=== PATIENT | female | born 1990 | race Caucasian/White ===

== ENCOUNTER 2020-10-24 08:24 | Outpatient (REF) | payer OTHER, SELFPAY ==
[2020-10-25 08:22] LABS: BV Int Neg Control Negative (Negative); BV Int Pos Control Positive (Positive)
[2020-10-25 14:56] LABS: C. trachomatis RNA TMA NOT DETECTED (NOT DETECTED); N. gonorrhoeae RNA TMA NOT DETECTED (NOT DETECTED)
[2020-10-29 13:31] LABS: HPV mRNA E6/E7 rflx Not Detected (Not Detected)
== END 2020-10-24 08:25 | disposition home or self-care (01) ==
LOC: HO.LAB 08:24
PROVIDERS: Visit Provider Obstetrics & Gynecology
DX: Z01.419 Encounter for gynecological examination (general) (routine) without abnormal findings (principal); Z11.51 Encounter for screening for human papillomavirus (HPV)
CPT/HCPCS: 36415; 87480; 87491; 87510; 87591; 87624; 87660; 88142

== ENCOUNTER 2021-02-28 09:52 | Outpatient (REF) | payer OTHER, SELFPAY ==
[2021-02-28 15:14] LABS: CT PCR NOT DETECTED (Not Detect.); NG PCR NOT DETECTED (Not Detect.)
[2021-03-01 11:16] LABS: BV Int Neg Control Negative (Negative); BV Int Pos Control Positive (Positive)
== END 2021-02-28 09:53 | disposition home or self-care (01) ==
LOC: HO.LAB 09:52
PROVIDERS: Visit Provider Obstetrics & Gynecology
DX: Z11.3 Encounter for screening for infections with a predominantly sexual mode of transmission (principal); B37.3 Candidiasis of vulva and vagina; N89.8 Other specified noninflammatory disorders of vagina
CPT/HCPCS: 87480; 87491; 87510; 87591; 87660

== ENCOUNTER 2021-10-29 14:48 | Outpatient (REF) | payer OTHER, SELFPAY ==
[2021-11-01 14:24] LABS: HPV mRNA E6/E7 rflx Not Detected (Not Detected)
== END 2021-10-29 14:49 | disposition home or self-care (01) ==
LOC: HO.LAB 14:48
PROVIDERS: PCP Internal Medicine; Visit Provider Advanced Practice Midwife
DX: Z01.411 Encounter for gynecological examination (general) (routine) with abnormal findings (principal); Z11.51 Encounter for screening for human papillomavirus (HPV); L68.0 Hirsutism; N92.6 Irregular menstruation, unspecified; L70.9 Acne, unspecified; E66.01 Morbid (severe) obesity due to excess calories; Z68.41 Body mass index [BMI] 40.0-44.9, adult
CPT/HCPCS: 87624; 88142

== ENCOUNTER 2021-11-20 13:46 | Outpatient (REF) | payer OTHER, SELFPAY ==
--- NOTE | ~2021-11-20 | US_ITS ---
EXAMINATION: US PELVIS CLINICAL INFORMATION: Hirsutism. COMPARISON: None TECHNIQUE: Ultrasound of the pelvis is performed using both transabdominal and transvaginal transducers along with Doppler. Transvaginal imaging is performed due to inadequate visualization transabdominally. FINDINGS: The uterus is anteverted and measures 7.8 x 3.2 x 5.4 cm in dimension. No focal uterine lesion is seen. Endometrial thickness measures 0.9 cm. There is a 4 x 2 x 4 mm cyst with bright echogenic wall in the endometrium. Appearance is questionable for an early intrauterine . No focal uterine lesion is seen. There are nabothian cysts in the cervix. The right ovary measures 3.8 x 2.5 x 2.8 cm. There is a 1.6 x 1.3 x 1.8 cm complex cyst in the right ovary with internal echoes and thickened hypervascular wall. This may represent a corpus luteum. The left ovary is normal-appearing and measures 2.8 x 1.8 x 1.7 cm. There is no fluid in the pelvis. US/US pelvic and transvaginal IMPRESSION: 4 x 2 x 4 mm endometrial cyst with bright echogenic wall questionable for an intrauterine . 1.6 x 1.3 x 1.8 cm complex right ovarian cyst, probably representing a corpus luteum.
[2021-11-20 16:03] LABS: Thyroid Stimulating Hormone 1.33 uIU/mL (0.32-4.0)
[2021-11-21 12:55] LABS: DHEA Sulfate 83 mcg/dL (19-237); Prolactin 21.8 ng/mL
[2021-11-26 11:11] LABS: Testosterone, Free 2.6 pg/mL (0.1-6.4); Testosterone, Total 15 ng/dL (2-45)
== END 2021-11-20 13:47 | disposition home or self-care (01) ==
LOC: HO.US 13:46
PROVIDERS: PCP Internal Medicine; Visit Provider Advanced Practice Midwife
DX: L68.0 Hirsutism (principal); N92.6 Irregular menstruation, unspecified
CPT/HCPCS: 36415; 76830; 76856; 82627; 83498; 84146; 84402; 84403; 84443

== ENCOUNTER → 2021-12-04 13:10 | Outpatient (BNVA) | payer OTHER, SELFPAY | PROVIDERS: PCP Internal Medicine Nephrology; Visit Provider Advanced Practice Midwife | DX: Z71.2 Person consulting for explanation of examination or test findings (principal); Z32.02 Encounter for pregnancy test, result negative; N83.291 Other ovarian cyst, right side | CPT/HCPCS: 81025 ==

== ENCOUNTER 2022-01-06 09:17 | Outpatient (REF) | payer OTHER, SELFPAY ==
--- NOTE | ~2022-01-06 | US_ITS ---
EXAMINATION: US PELVIS CLINICAL INFORMATION: History of ovarian cyst, right side. COMPARISON: Ultrasound pelvis 11/20/2021. TECHNIQUE: Ultrasound of the pelvis is performed using both transabdominal and transvaginal transducers along with Doppler. Transvaginal imaging is performed due to inadequate visualization transabdominally. FINDINGS: UTERUS: The uterus is anteverted, anteflexed and measures 7.41 x 3.48 x 4.79 cm. The double wall endometrial thickness is 1.12 cm. The uterus is smooth in contour and has normal myometrial echogenicity. No visible fibroid. There are small anechoic nabothian cysts in the cervix. ADNEXA: Both ovaries are visualized. There is normal color flow to the adnexa. There is no ovarian torsion. There is no pelvic ascites or fluid collection. Right ovary measures 3.30 x 2.11 x 2.70 cm and volume 9.84 mL. It appears unremarkable. Previously right ovary measured 3.8 x 2.5 x 2.8 cm. Left ovary measures 3.65 x 2.58 x 2.70 cm and volume 13.3 mL. There is anechoic simple cyst measuring 1.5 x 1.2 x 1.5 cm. US/US pelvic and transvaginal IMPRESSION: Multiple nabothian cysts in the cervix. The uterus is unremarkable. Previously visualized endometrial cyst is not visualized at this time. Simple cyst left ovary. The complex right ovarian cyst seen previously is not visualized at this time.
== END 2022-01-06 09:18 | disposition home or self-care (01) ==
LOC: HO.US 09:17
PROVIDERS: Visit Provider Advanced Practice Midwife
DX: N83.291 Other ovarian cyst, right side (principal)
CPT/HCPCS: 76830; 76856

== ENCOUNTER → 2022-01-20 11:34 | Outpatient (BNVA) | payer OTHER, SELFPAY | PROVIDERS: PCP Internal Medicine Nephrology; Visit Provider Advanced Practice Midwife | DX: Z13.89 Encounter for screening for other disorder (principal) ==

== ENCOUNTER 2022-04-27 08:32 | Outpatient (REF) | payer SELFPAY ==
[2022-04-27 09:39] LABS: Estimated Average Glucose 131 mg/dL; Hemoglobin A1c % 6.2 %
[2022-04-27 09:44] LABS: Cholesterol 161 mg/dL; HDL Cholesterol 54 mg/dL; LDL Cholesterol Calculated 82 mg/dl; Triglycerides 125 mg/dL
== END 2022-04-27 08:33 | disposition home or self-care (01) ==
LOC: HO.LAB 08:32
PROVIDERS: PCP Internal Medicine; Visit Provider Internal Medicine
DX: E11.65 Type 2 diabetes mellitus with hyperglycemia (principal); E78.5 Hyperlipidemia, unspecified
CPT/HCPCS: 36415; 80061; 83036

== ENCOUNTER → 2022-09-14 08:42 | Outpatient (BNVA) | payer OTHER, SELFPAY | PROVIDERS: PCP Internal Medicine; Visit Provider Obstetrics & Gynecology | DX: Z13.89 Encounter for screening for other disorder (principal) ==

== ENCOUNTER 2022-09-15 12:20 | Outpatient (REF) | payer OTHER, SELFPAY ==
[2022-09-15 14:44] LABS: TSH reflex Free T4 1.44 uIU/mL (0.32-4.0)
[2022-09-16 06:44] LABS: Syphilis Screen Nonreactive (Nonreactive)
[2022-09-16 08:11] LABS: HBsAGNum1 0.41 S/CO (0.00-0.99); HIV AB/AG Nonreactive (Nonreactive); HIV Num 1 0.06 S/CO (0.00-0.99); Hepatitis B Surface Antigen Negative (Negative); ~HepC Num1 0.09 S/CO (0.00-0.79); ~Hepatitis C Antibody Nonreactive (Nonreactive)
[2022-09-16 08:57] LABS: Follicle Stimulating Hormone 5.5 mIU/mL; Prolactin 5.2 ng/mL
[2022-09-16 14:28] LABS: Rubella IgG Antibody 8.23 Index
[2022-09-17 18:43] LABS: Anti-Mullerian Hormone-Female 1.19 ng/mL (0.36-10.07)
[2022-09-24 04:23] LABS: Estradiol Free 0.43 pg/mL; Estradiol, Ultrasensitive 18 pg/mL
[2022-09-25 09:29] LABS: CF Ethnicity NG; Cystic Fibrosis NEGATIVE (NEGATIVE)
== END 2022-09-15 12:21 | disposition home or self-care (01) ==
LOC: HO.LAB 12:20
PROVIDERS: PCP Internal Medicine; Visit Provider Advanced Practice Midwife
DX: E66.9 Obesity, unspecified (principal); Z31.41 Encounter for fertility testing; Z13.0 Encounter for screening for diseases of the blood and blood-forming organs and certain disorders involving the immune mechanism; Z11.9 Encounter for screening for infectious and parasitic diseases, unspecified; Z31.430 Encounter of female for testing for genetic disease carrier status for procreative management
CPT/HCPCS: 36415; 81220; 82397; 82670; 82681; 83001; 83002; 84146; 84443; 86762; 86780; 86803; 86850; 86900; 86901; 87340; 87389

== ENCOUNTER 2022-09-21 10:54 | Outpatient (REF) | payer OTHER, SELFPAY ==
--- NOTE | ~2022-09-21 | FL_ITS ---
EXAMINATION: INJECTION FOR HYSTEROSALPINGOGRAM FL hysterosalpingography CLINICAL INFORMATION: Female infertility COMPARISON: None. TECHNIQUE: Realtime fluoroscopy was provided to Dr. Best to perform a hysterosalpingogram. FLUOROSCOPY TIME: 0.8 minutes DOSE AREA PRODUCT: 9.920 Gy-cm2 FINDINGS: Normal endometrial contour. There was prompt contrast opacification of the bilateral Fallopian tubes with intraperitoneal spill confirming tubal patency. FL/FL hysterosalpingography IMPRESSION: Normal exam. Patent Fallopian tubes bilaterally.
== END 2022-09-21 10:55 | disposition home or self-care (01) ==
LOC: HO.XRAY 10:54
PROVIDERS: PCP Internal Medicine; Visit Provider Obstetrics & Gynecology
DX: N97.9 Female infertility, unspecified (principal)
CPT/HCPCS: 58340; 74740

== ENCOUNTER 2022-11-11 14:03 | Outpatient (REF) | payer OTHER, SELFPAY ==
[2022-11-12 09:37] LABS: BV Int Neg Control Negative (Negative); BV Int Pos Control Positive (Positive)
== END 2022-11-11 14:04 | disposition home or self-care (01) ==
LOC: HO.LAB 14:03
PROVIDERS: Visit Provider Advanced Practice Midwife
DX: N89.8 Other specified noninflammatory disorders of vagina (principal)
CPT/HCPCS: 87480; 87510; 87660

== ENCOUNTER 2023-02-12 08:15 | Outpatient (REF) | payer OTHER, SELFPAY ==
[2023-02-12 08:42] LABS: MANUAL DIFF FLAG NO
[2023-02-12 09:24] LABS: Basophils Percent Auto 0.3 % (0-2); Eosinophils Absolute Auto 0.3 X10*3/uL (0.0-0.4); Eosinophils Percent Auto 3.4 % (0-4); Hematocrit 37.2 % (37.0-47.0); Hemoglobin 12.8 g/dl (12.0-16.0); Imm Gran Abs Auto 0.03 X10*3/uL (0.00-0.03); Imm Gran Pct Auto 0.3 % (0.0-0.4); Lymphocytes Absolute Auto 2.4 X10*3/uL (1.2-4.9); Lymphocytes Percent Auto 27.1 % (20-40); Mean Corpuscular HGB Conc 34.4 g/dl (31.0-35.0); Mean Corpuscular Hemoglobin 28.9 pg (27.0-33.0); Mean Platelet Volume 10.7 fL (9.4-12.3); Monocytes Absolute Auto 0.6 X10*3/uL (0.1-1.2); Monocytes Percent Auto 7.2 % (2-11); Neutrophils Absolute Auto 5.4 x10*3/uL (2.0-8.3); Neutrophils Percent Auto 61.7 % (45-73); Platelet Count 269 X10*3/uL (160-400); Red Blood Count 4.43 X10*6/uL (4.20-5.50); Red Cell Distribution Width 15.2 % (11.0-16.0); White Blood Count 8.8 X10*3/uL (4.8-10.8)
[2023-02-12 09:32] LABS: Estimated Average Glucose 134 mg/dL; Hemoglobin A1c % 6.3 %
[2023-02-12 10:03] LABS: Alanine Aminotransferase 70 U/L (0-31); Albumin Level 4.2 g/dL (3.5-5.0); Alkaline Phosphatase 80 U/L (39-117); Anion Gap 13 (12-20); Aspartate Amino Transferase 38 U/L (5-31); Bilirubin Total 0.7 mg/dL (0.0-1.0); Blood Urea Nitrogen 14 mg/dL (9-16); Calcium 9.7 mg/dL (8.4-10.2); Carbon Dioxide 25 mmol/L (22-29); Chloride 105 mmol/L (96-108); Cholesterol 159 mg/dL; Estimated Glomerular Filt Rate > 60; Glucose Random 145 mg/dL (60-115); HDL Cholesterol 52 mg/dL; LDL Cholesterol Calculated 85 mg/dl; Potassium 4.2 mmol/L (3.3-5.1); Sodium 139 mmol/L (135-145); Total Protein 7.2 g/dL (6.5-8.0); Triglycerides 113 mg/dL
[2023-02-12 10:07] LABS: Creatinine Urine 114.84 mg/dL; Microalbum/Creatinine Ratio Ur 107.9 ug/mg cr
== END 2023-02-12 08:16 | disposition home or self-care (01) ==
LOC: HO.LAB 08:15
PROVIDERS: PCP Internal Medicine; Visit Provider Internal Medicine
DX: Z00.00 Encounter for general adult medical examination without abnormal findings (principal); E11.65 Type 2 diabetes mellitus with hyperglycemia; E55.9 Vitamin D deficiency, unspecified; E78.5 Hyperlipidemia, unspecified; Z13.29 Encounter for screening for other suspected endocrine disorder
CPT/HCPCS: 36415; 80053; 80061; 82043; 83036; 85025

== ENCOUNTER 2023-03-22 08:03 | Outpatient (REF) | payer OTHER, SELFPAY ==
[2023-03-22 10:01] LABS: Free T4 (Free Thyroxine) 1.04 ng/dL (0.71-1.85); Thyroid Stimulating Hormone 2.91 uIU/mL (0.32-4.0)
[2023-03-22 10:09] LABS: Vitamin B12 436 pg/mL (200-900)
== END 2023-03-22 08:04 | disposition home or self-care (01) ==
LOC: HO.LAB 08:03
PROVIDERS: PCP Internal Medicine; Visit Provider Registered Nurse Emergency
DX: R41.3 Other amnesia (principal)
CPT/HCPCS: 36415; 82607; 84439; 84443

== ENCOUNTER 2023-04-01 08:00 | Outpatient (REF) | payer OTHER, SELFPAY ==
--- NOTE | ~2023-04-01 | US_ITS ---
EXAMINATION: US ABDOMEN COMPLETE CLINICAL INFORMATION: Elevated liver enzymes. COMPARISON: None available. TECHNIQUE: Real-time imaging of the abdominal viscera. Limited visualization due to bowel gas and body habitus. FINDINGS: PANCREAS: Limited visualization of pancreatic tail and head. Imaged portion of pancreatic body is unremarkable. ABDOMINAL AORTA: Limited visualization. Imaged portions of abdominal aorta are nonaneurysmal. INFERIOR VENA CAVA: Visualized portions are normal. LIVER: Diffuse increase in echogenicity of the liver is characteristic of primary hepatocellular disease, possibly due to hepatic steatosis and severely limits visualization. GALLBLADDER: Multiple tiny echogenic foci along the gallbladder wall may represent multiple tiny polyps, irregular mural calcifications and/or adherent gallstones. COMMON BILE DUCT: Normal in caliber measuring 0.7 cm in diameter. RIGHT KIDNEY: No hydronephrosis. No renal calculi. Renal cortical thickness is normal. Limited visualization. The kidney measures 12.1 cm in maximum dimension. LEFT KIDNEY: No hydronephrosis. No renal calculi. Renal cortical thickness is normal. Limited visualization. The kidney measures 12.6 cm in maximum dimension. SPLEEN: Normal. The spleen measures 11.2 cm in maximum dimension. FREE FLUID: None. US/US abdomen complete IMPRESSION: 1. Multiple tiny echogenic foci along the gallbladder wall may represent multiple tiny polyps, irregular mural calcifications and/or adherent gallstones. Some of these appear to demonstrate internal vascularity. GI consultation and MRI recommended for further evaluation. 2. Diffuse increase in echogenicity of the liver is characteristic of primary hepatocellular disease, possibly due to hepatic steatosis and severely limits visualization.
== END 2023-04-01 08:01 | disposition home or self-care (01) ==
LOC: HO.US 08:00
PROVIDERS: PCP Internal Medicine; Visit Provider Physician Assistant Medical
DX: R74.8 Abnormal levels of other serum enzymes (principal)
CPT/HCPCS: 76700

== ENCOUNTER 2023-05-07 08:01 | Outpatient (REF) | payer OTHER, SELFPAY ==
--- NOTE | ~2023-05-07 | MR_ITS ---
EXAMINATION: MR ABDOMEN WITHOUT AND WITH CONTRAST CLINICAL INFORMATION: Gallstones. COMPARISON: Abdominal ultrasound 04/01/2023 TECHNIQUE: MR abdomen was performed without and with use of 10 mL intravenous Gadavist gadolinium contrast. Postcontrast images are performed in multiphase dynamic sequences. Imaging was performed in 3 planes. MRCP was also performed. FINDINGS: LUNG BASES: No pleural or pericardial effusion. LIVER, GALLBLADDER, AND BILIARY TREE: The liver is enlarged and measures 20.1 cm in sagittal dimension. Marked hepatic steatosis with sparing along the gallbladder fossa. No focal hepatic lesion or biliary ductal dilatation is present. There are subtle tiny T2 hyperintense foci along the gallbladder wall best seen on the T2-weighted images. This corresponds to the recent sonographic findings. PANCREAS: No ductal dilatation. SPLEEN: Not enlarged. ADRENAL GLANDS: No adrenal mass. KIDNEYS AND URETERS: The kidneys are symmetric in size and enhancement. No hydronephrosis or perinephric stranding. GASTROINTESTINAL TRACT: Imaged loops of small and large bowel are nonobstructed. No abdominal ascites. ABDOMINAL WALL: No significant hernia is appreciated. LYMPH NODES: No bulky abdominal lymphadenopathy. VASCULAR: Normal caliber abdominal aorta. MR/MR abdomen wo/w con IMPRESSION: Marked hepatic steatosis. Findings likely representing gallbladder cholesterol polyps/cholesterolosis.
[2023-05-07] MEDS: gadobutroL 10 ML VIAL IVPUSH (08:56)
== END 2023-05-07 08:02 | disposition home or self-care (01) ==
LOC: HO.MRI 08:01
PROVIDERS: PCP Internal Medicine; Visit Provider Physician Assistant Medical
DX: K80.20 Calculus of gallbladder without cholecystitis without obstruction (principal)
CPT/HCPCS: 74183; A9585

== ENCOUNTER 2024-11-29 07:58 | Outpatient (REF) | payer OTHER, SELFPAY ==
[2024-11-29 20:18] LABS: CT PCR NOT DETECTED (Not Detect.); NG PCR NOT DETECTED (Not Detect.)
== END 2024-11-29 07:59 | disposition home or self-care (01) ==
LOC: HO.LNP 07:58
PROVIDERS: PCP Internal Medicine; Visit Provider Advanced Practice Midwife
DX: Z30.430 Encounter for insertion of intrauterine contraceptive device (principal); Z20.2 Contact with and (suspected) exposure to infections with a predominantly sexual mode of transmission
CPT/HCPCS: 58300; 81025; 87491; 87591; J7298

== ENCOUNTER 2024-11-29 07:58 | Outpatient (AMB) | payer OTHER, SELFPAY ==
--- NOTE | 2024-11-29 07:59 | MHC.OFFVIS ---
Vital Signs 11/29/24 08:01 11/29/24 08:28 Height 5 ft 4 in Weight 214 lb BMI 36.7 BP 120/84 124/82 Intake Visit Reasons: Annual/BC Allergies No Known Allergies Allergy (Verified 11/29/24 08:02) Is last menstrual period known: Yes Last menstrual period: 11/28/24 HPI Comments Details: Here today for a control consult, currently has her menstrual cycle. She reports cycles are regular time 5-7 days, heavier for the 2 days out of the cycles she uses Midol to help with her menstrual cramping. She is requiring a reliable control, scheduled for gastric sleeve procedure next . [facility], [facility] Medical History (Updated 11/29/24 @ 09:10 by Suzanne Coronado CNM) IUD (intrauterine device) in place Diabetes mellitus Family History (Updated 11/29/24 @ 08:04 by DAY Zaidi) Mother Diabetes Father Diabetes Hypertension Kidney failure Maternal Aunt Colon cancer Social History Household Members: Significant Other Alcohol intake: current Alcohol intake frequency: holidays/special occasions only Patient Tobacco Use Status: Never used Tobacco Sexual orientation: Straight/Heterosexual Gender identity: Female Female Reproductive History Menstrual Age of Menarche: 8 Date of last menstrual period: 11/28/24 Total pregnancies: 0 Review of Systems Const All systems reviewed & are unremarkable except as noted in HPI and below Physical Exam Vital Signs: Last Vital Signs BP 124/82 11/29/24 08:28 BMI result Body Mass Index 36.7 Const General: cooperative, healthy appearing and no acute distress Orientation/consciousness: patient oriented x3 GI Inspection: Yes normal to inspection Palpation (GI): Soft to palpation and Other GI palpation findings present (Nontender) Rectal Exam - Female: visual inspection normal General: Yes bladder normal to palpation External Female Exam: normal appearance of the urethra Speculum Exam - Vagina: normal appearance of the vagina, normal palpation, normal vaginal discharge and vaginal bleeding Speculum Exam - Cervix: normal appearance of the cervix and normal palpation Bimanual exam- vagina & uterus: normal bimanual exam, normal palpation, uterine size normal, bladder normal to palpation, normal palpation, uterine shape normal and non-tender Bimanual Exam- Adnexa, other: normal adnexae OB/external & speculum: vaginal bleeding Neuro General: patient oriented x3 Office Procedures IUD Insert/Removal Details 10862-BII Insertion Procedure code (CPT) selection complete Contraception Insert/Removal Details Details: The patient is here today for a Mirena IUD insertion. She was counseled on the side effects including: menstrual cycle changes, pain, infection, bleeding, or expulsion. Risks of injury to the vagina, cervix, uterus, tubes, ovaries, bowel, bladder, and any adjacent tissue, resulting in nerve damage, scarring, and pain. Risks complications for the procedure that may require other test including ultrasounds, Xray, CT or MRI scan, surgery, anesthesia, blood transfusion. A urine test was completed and was negative. She was consented for the IUD insertion and has signed the consent form. All questions were answered. IUD Insertion: The patient was placed in the dorsal lithotomy position and a sterile speculum was inserted. The procedure was completed under aseptic technique. The cervix was cleansed with a Betadine solution x 3 swabs. A single toothed tenaculum was applied to the cervix for stabilization, and the uterus was sounded to 8cm. The device was inserted and released with a gentle motion. Bleeding from the tenaculum sites and the procedure were minimal. The strings were trimmed to 3cm. All of the equipment was removed and the bimanual was normal, no tip was palpable at the cervical os. The patient tolerated the procedure well and left the office in good condition. Post IUD Insertion Care: There may be some post insertion bleeding for several days that is usually light and can turn to a light brown or pink in color. Mild cramping may occur. Nothing in the vagina including: tampons, douching or intimacy for several days. You may take an over the counter mild analgesia like Tylenol, per the manufacturers recommendations on dosing and frequency. Follow the directions completely. Call the office if any: fever (over 100.4), flu like symptoms, abdominal pain, worsening cramping not resolved with over the counter medications, foul smelling vaginal odor, signs of infected appearing discharge, or heavy bleeding. Use a condom for a back up method if indicated for 7 days. Always use a condom for STI prevention; IUD's are not protective against STD's. Return to the office in 4-6 weeks for IUD recheck. This note is constructed using voice recognition software. While every effort has been made to ensure accuracy, pilot highway patrol errors may have been included. 86517 - Insertion Office Meds Mirena 21 mcg/24 hr (up to 8 years) 52 mg intrauterine device Performing Provider: Suzanne Coronado CNM Performing Location: [facility] Administered by: DAY Zaidi on 11/29/24 09:03 Dose Route Admin Location Dispensed Lot Number Expiration Date [facility] [employer] M[employer] 1 device intrauterine 1 device [id number] 02/03/27 [id number] [employer] Results AMB Test Urine AMB Test Urine Negative Last Edit by DAY Zaidi on 11/29/24 08:44 Assessment & Plan Assessment & Plan (1) Encounter for IUD insertion: Code(s): Z30.430 - Encounter for insertion of intrauterine contraceptive device Plan See procedure notes. Reviewed the use of OTC meds, avoid the use of ibuprofen. Return to the office in 4-6 weeks. The patient expressed understanding and agreement with the plan of care. All of her questions and concerns were addressed to the best of my ability. This note is constructed using voice recognition software. While every effort has been made to ensure accuracy, pilot highway patrol errors may have been included. Orders: Orders CT NG by PCR Today Z20.2 - Contact with and (suspected) exposure to infections with a predominantly sexual mode of transmission AMB IUD Insertion/Removal - Practice Supplied Today Z30.430 - Encounter for insertion of intrauterine contraceptive device AMB HCG Urine Test Today Z32.02 - Encounter for test, result negative Coding Level of Care Code Procedure Only Diagnoses Encounter for IUD insertion Z30.430 CPT Codes Details - CPT: 82876-TLK Insertion ([id number]) Details - Contraception: 43594 - Insertion ([id number])
[2024-11-29 08:01] VITALS: BP 120/84; BMI 36.7
--- OUTSIDE RECORDS SUMMARY | 2024-11-29 08:05 | XMS_ITS ---
Author Organization [facility] Address [address] [place] [address] Care Team Providers Care Supplemental Manager Name Role Phone NEHEMIAS BARLOW Unavailable [phone] REASON FOR VISIT Refills MEDICATIONS Medication SIG (Take, Route, Fr equency, Duration) Notes Start Date End Date Status Mounjaro 10 MG/0.5ML 10 mg Subcutaneous weekly for 28 days Active Encounters Encounter Location Date Provider Diagnosis [facility] [address] [place] [id number] 09/27/2024 NEHEMIAS BARLOW PLAN OF TREATMENT Medication Medication Name Sig Start Date Stop Date Notes Mounjaro 10 MG/0.5ML 10 mg Subcutaneous weekly for 28 days Next Appt Details Provider Name:NEHEMIAS BARLOW, Ramiro 01/09/2025 08:00:00 AM, [address], [place], [address], Progress Notes * GREERBIBCLARKDOB:[birth year] (34 yo F)Acc No.[id number]:09/27/2024 Patient:??CODY BUTTERFIELD :1990?Age:34 Y?Sex:Fe male Address:[address] [place] [address], [place] [address] * Refills?? Refill Mounjaro Solution Pen-injector, 10 MG/0.5ML, Subcutaneous, 4, 10 mg, weekly, 28 days, Refills=0 * true * Date:??
--- OUTSIDE RECORDS SUMMARY | 2024-11-29 08:05 | XMS_ITS ---
Author Organization [employer] [facility] Address [address] [place] [address] Care Team Providers Care Shift Lab Technician Name Role Phone NEHEMIAS BARLOW Unavailable [phone] REASON FOR VISIT New Refill Request MEDICATIONS Medication SIG (Take, Route, Fr equency, Duration) Notes Start Date End Date Status Mounjaro 10 MG/0.5ML 10 mg Subcutaneous weekly for 28 days Active Encounters Encounter Location Date Provider Diagnosis [facility] [address] [place] [phone] 10/30/2024 NEHEMIAS BARLOW PLAN OF TREATMENT Medication Medication Name Sig Start Date Stop Date Notes Mounjaro 10 MG/0.5ML 10 mg Subcutaneous weekly for 28 days Next Appt Details Provider Name:Ramiro MARROQUIN 01/09/2025 08:00:00 AM, [address], [place], [phone], Progress Notes * GREER BIBCLARKDOB:[birth year] (34 yo F)Acc No.[id number]:10/30/2024 Patient:??CODY BUTTERFIELD :1990?Age:34 Y?Sex:Fe male Address:[address] [place] [address] * Refills?? Refill Mounjaro Solution Pen-injector, 10 MG/0.5ML, Subcutaneous, 4, 10 mg, weekly, 28 days, Refills=0 * true * Date:??
--- OUTSIDE RECORDS SUMMARY | 2024-11-29 08:05 | XMS_ITS ---
Author Organization [employer] [facility] Address [address] [place] [address] Care Team Providers Care Inside Contractor Sales Name Role Phone CAIN, NEHEMIAS Unavailable [phone] REASON FOR VISIT covid swab Encounters Encounter Location Date Provider Diagnosis [address] [address] 09/12/2024 NEHEMIAS BARLOW PLAN OF TREATMENT Next Appt Details Provider Name:NEHEMIAS ABRLOW, 0 01/09/2025 08:00:00 AM, [address], [place], [phone], Progress Notes * CODY BUTTERFIELDDOB:[birth year] (34 yo F)Acc No.[id number]:09/12/2024 Patient:??GREERBIBCLARK :1990?Age:34 Y?Sex:Fe male Address:[address] [place] [address]., [place] [address] * true * Date:??
[2024-11-29 08:28] VITALS: BP 124/82
== END 2024-11-29 11:30 | disposition home or self-care (01) ==
LOC: HO.HWS 07:58
PROVIDERS: PCP Internal Medicine; Visit Provider Advanced Practice Midwife
DX: Z30.09 Encounter for other general counseling and advice on contraception (principal); Z30.430 Encounter for insertion of intrauterine contraceptive device; Z32.02 Encounter for pregnancy test, result negative
CPT/HCPCS: 58300; 99213

== ENCOUNTER 2024-12-28 07:45 | Outpatient (AMB) | payer OTHER, SELFPAY ==
--- NOTE | 2024-12-28 07:48 | MHC.OFFVIS ---
Intake Visit Reasons: vaginal discharge Electrolysis Engineer: Electrolysis Engineer Present (Jessica) Allergies No Known Allergies Allergy (Verified 12/28/24 07:49) HPI Comments Details: Patient is here today for a follow up, status post IUD insertion on 11/29/2024, she reports bleeding started with dark brown, reddish, volume increased with cramping this week. Gastric sleeve performed a week after the Mirena was inserted. Now off her diabetic meds, hemoglobin A1c is in normal range. Additionally she reports mood changes. [facility] Medical History (Updated 12/28/24 @ 08:03 by Suzanne Coronado CNM) IUD check up Irregular bleeding IUD (intrauterine device) in place Diabetes mellitus Family History (Updated 11/29/24 @ 08:04 by DAY Zaidi) Mother Diabetes Father Diabetes Hypertension Kidney failure Maternal Aunt Colon cancer Social History Household Members: Significant Other Alcohol intake: current Alcohol intake frequency: holidays/special occasions only Patient Tobacco Use Status: Never used Tobacco Sexual orientation: Straight/Heterosexual Gender identity: Female Female Reproductive History Menstrual Age of Menarche: 8 Review of Systems Const All systems reviewed & are unremarkable except as noted in HPI and below Physical Exam Const General: cooperative, healthy appearing and no acute distress Orientation/consciousness: patient oriented x3 GI Inspection: Yes normal to inspection Palpation (GI): Soft to palpation and Other GI palpation findings present (Nontender) Rectal Exam - Female: visual inspection normal General: Yes bladder normal to palpation External Female Exam: normal appearance of the urethra Speculum Exam - Vagina: normal appearance of the vagina, normal palpation, normal vaginal discharge and vaginal bleeding (Small amount at the os) Speculum Exam - Cervix: normal appearance of the cervix, normal palpation and Other cervical findings present (IUD strings at the os, no tip palpable) Bimanual exam- vagina & uterus: normal bimanual exam, normal palpation, uterine size normal, bladder normal to palpation, normal palpation, uterine shape normal and non-tender Bimanual Exam- Adnexa, other: normal adnexae OB/external & speculum: vaginal bleeding (Small amount at the os) Neuro General: patient oriented x3 Assessment & Plan Assessment & Plan (1) Irregular bleeding: Code(s): N92.6 - Irregular menstruation, unspecified Category: Medical Plan: Reviewed normal bleeding patterns for Mirena IUD use, anticipate decreased volume with time 1st 3 months, tends to have random bleeding, some experience amenorrhea with time. Physical adjustments impacting bleeding can be due to weight loss in surgery other stressors. Mood changes can be affected by hormonal IUD and other stressors as noted. Call if any heavy or prolonged bleeding occurs. Use of OTC medications such as Tylenol and heating pad for cramping. BV panel obtained await results for plan of care. The patient expressed understanding and agreement with the plan of care. All of her questions and concerns were addressed to the best of my ability. (2) IUD check up: Code(s): Z30.431 - Encounter for routine checking of intrauterine contraceptive device Category: Medical Plan: Plan pelvic ultrasound to check IUD positioning, if low lying we will need to be replaced. Follow up pending results. This note is constructed using voice recognition software. While every effort has been made to ensure accuracy, physical damage appraiser errors may have been included. Orders: Orders Bacterial Vaginosis Panel Today N92.6 - Irregular menstruation, unspecified US pelvic and transvaginal Today N92.6 - Irregular menstruation, unspecified, Z30.431 - Encounter for routine checking of intrauterine contraceptive device Coding Level of Care Code Est Pt Level 3 (02462) Diagnoses Irregular bleeding N92.6 IUD check up Z30.431
--- OUTSIDE RECORDS SUMMARY | 2024-12-28 07:48 | XMS_ITS | Patient Health Record ---
Author Organization [facility] Address [address] [place] [address] Care Team Providers Care Laboratory Analyst Name Role Phone NEHEMIAS BOURNE Unavailable [phone] MYA WALTON Unavailable [phone] DOUGLAS COLE Unavailable [phone] ALLERGIES Allergen (clinical drug ingredient) Drug/Non Drug Allergy documented on EMR Reaction Allergy Type Onset Date Status Feathers feathers (uncoded) Unknown Allergy A ctive grass (uncoded) Unknown Allergy Acti ve dulaglutide Trulicity rash Drug Allergy Activ e Dust Mites Unknown Allergy Active Pollen Pollen Unknown Allergy Active RESULTS Component Value Reference Range Notes Hemoglobin [id number] Reviewed date:02/19/2024 09:05:53 AM Interpretation: Performing Lab:[facility], [address] [place] [address], Phone - [phone], Director - Jassi Notes/Report: Hemoglobin A1c 7.5 4.8-5.6 % . Prediabetes: 5.7 - 6.4 Diabetes: >6.4 Glycemic control for adults with diabetes: <7.0 Urinalysis, Routine-[id number] Reviewed date:07/05/2024 08:01:37 AM Interpretation: Performing Lab:[facility], [address] [facility], Phone - [phone], Director - Jassi Notes/Report: Specific Dresser 1.007 1.005-1.030 pH 6.5 5.0-7.5 Urine-Color Yellow Yellow Appearance Clear Clear WBC Esterase Negative Negative Protein Negative Negative/Trace Glucose Negative Negative Ketones Negative Negative Occult Blood Negative Negative Bilirubin Negative Negative Urobilinogen,Semi-Qn 0.2 0.2-1.0 mg/dL Nitrite, Urine Negative Negative Microscopic Examination Micr oscopic not indicated and not performed. Urinalysis, Complete-[id number] Reviewed date:02/19/2024 09:06:01 AM Interpretation: Performing Lab:[facility] Acevedo[address], Phone - [phone], Director - MDJodry Notes/Report: Specific Dresser 1.011 1.005-1.030 pH 7.5 5.0-7.5 Urine-Color Yellow Yellow Appearance Cloudy Clear WBC Esterase Trace Negative Protein 1+ Negative/Trace Glucose Negative Negative Ketones Negative Negative Occult Blood Negative Negative Bilirubin Negative Negative Urobilinogen,Semi-Qn 0.2 0.2-1.0 mg/dL Nitrite, Urine Negative Negative Microscopic Examination See below: Micr oscopic was indicated and was performed. Microscopic Examination WBC 0-5 0 - 5 /hpf RBC None seen 0 - 2 /hpf Epithelial Cells (non renal) >10 0 - 10 /hpf Epithelial Cells (renal) Casts None seen None seen /lpf Cast Type Crystals Crystal Type Mucus Threads Bacteria Few None seen/Few Yeast Trichomonas Comment TSH-[id number] Reviewed date:02/19/2024 08:56:27 AM Interpretation: Performing Lab:[facility], [address] [place] [address], Phone - [phone], Director - Kayleey Notes/Report: TSH 1.470 0.450-4.500 uIU/mL TSH-[id number] Reviewed date:07/05/2024 08:01:37 AM Interpretation: Performing Lab:[facility], Phone - [phone], Director - Chiquidry Notes/Report: TSH 2.160 0.450-4.500 uIU/mL CBC With Differential/Platel et-[id number] Reviewed date:07/05/2024 08:01:37 AM Interpretation: Performing Lab:[facility], Phone - [phone], Director - Jodry Notes/Report: WBC 8.3 3.4-10.8 x10E3/uL RBC 4.26 3.77-5.28 x10E6/uL Hemoglobin 12.4 11.1-15.9 g/dL Hematocrit 37.8 34.0-46.6 % MCV 89 79-97 fL MCH 29.1 26.6-33.0 pg MCHC 32.8 31.5-35.7 g/dL RDW 13.9 11.7-15.4 % Platelets 307 150-450 x10E3/uL Neutrophils 70 Not Estab. % Lymphs 20 Not Estab. % Monocytes 6 Not Estab. % Eos 3 Not Estab. % Basos 1 Not Estab. % Immature Cells Neutrophils (Absolute) 5.8 1.4-7.0 x10E3/uL Lymphs (Absolute) 1.7 0.7-3.1 x10E3/uL Monocytes(Absolute) 0.5 0.1-0.9 x10E3/uL Eos (Absolute) 0.3 0.0-0.4 x10E3/uL Baso (Absolute) 0.0 0.0-0.2 x10E3/uL Immature Granulocytes 0 Not Estab. % Immature Grans (Abs) 0.0 0.0-0.1 x10E3/uL NRBC Hematology Comments: CBC With Differential/Platel et-[id number] Reviewed date:02/19/2024 08:56:27 AM Interpretation: Performing Lab:[facility], [address] [place] [address], [place], Phone - [phone], Director - Jassi Notes/Report: WBC 8.2 3.4-10.8 x10E3/uL RBC 4.57 3.77-5.28 x10E6/uL Hemoglobin 13.5 11.1-15.9 g/dL Hematocrit 41.2 34.0-46.6 % MCV 90 79-97 fL MCH 29.5 26.6-33.0 pg MCHC 32.8 31.5-35.7 g/dL RDW 14.1 11.7-15.4 % Platelets 335 150-450 x10E3/uL Neutrophils 70 Not Estab. % Lymphs 21 Not Estab. % Monocytes 6 Not Estab. % Eos 2 Not Estab. % Basos 1 Not Estab. % Immature Cells Neutrophils (Absolute) 5.7 1.4-7.0 x10E3/uL Lymphs (Absolute) 1.7 0.7-3.1 x10E3/uL Monocytes(Absolute) 0.5 0.1-0.9 x10E3/uL Eos (Absolute) 0.2 0.0-0.4 x10E3/uL Baso (Absolute) 0.0 0.0-0.2 x10E3/uL Immature Granulocytes 0 Not Estab. % Immature Grans (Abs) 0.0 0.0-0.1 x10E3/uL NRBC Hematology Comments: Hgb A1c with eAG Estimation- [id number] Reviewed date:07/05/2024 08:01:37 AM Interpretation: Performing Lab:[facility] [place], [address] [place] [address], Phone - [phone], Director - Jassi Notes/Report: Hemoglobin A1c 5.5 4.8-5.6 % . Prediabetes: 5.7 - 6.4 Diabetes: >6.4 Glycemic control for adults with diabetes: <7.0 Estim. Avg Glu (eAG) 111 Lipid Panel-[id number] Reviewed date:07/05/2024 08:01:37 AM Interpretation: Performing Lab:[facility] [place], [address] [place] [address], Phone - [phone], Director - Jassi Notes/Report: Cholesterol, Total 140 100-199 mg/dL Triglycerides 119 0-149 mg/dL HDL Cholesterol 53 >39 mg/dL VLDL Cholesterol Alexis 21 5-40 mg/dL LDL Chol Calc (NIH) 66 0-99 mg/dL LDL Calc Comment: Lipid Panel-[id number] Reviewed date:02/19/2024 08:56:27 AM Interpretation: Performing Lab:[facility] [place], [address] [place] [address], Phone - [phone], Director - Jassi Notes/Report: Cholesterol, Total 177 100-199 mg/dL Triglycerides 121 0-149 mg/dL HDL Cholesterol 63 >39 mg/dL VLDL Cholesterol Alexis 21 5-40 mg/dL LDL Chol Calc (NIH) 93 0-99 mg/dL LDL Calc Comment: Comp. Metabolic Panel (14)-3 Reviewed date:02/19/2024 09:06:10 AM Interpretation: Performing Lab:[facility] [address] [place] [address], Phone - [phone], Director Thuan Keene Notes/Report: Glucose 149 70-99 mg/dL BUN 11 6-20 mg/dL Creatinine 0.64 0.57-1.00 mg/dL eGFR 118 >59 mL/min/1.73 BUN/Creatinine Ratio 17 9-23 Sodium 138 134-144 mmol/L Potassium 3.9 3.5-5.2 mmol/L Chloride 99 96-106 mmol/L Carbon Dioxide, Total 25 20-29 mmol/L Calcium 9.4 8.7-10.2 mg/dL Protein, Total 7.1 6.0-8.5 g/dL Albumin 4.4 3.9-4.9 g/dL Globulin, Total 2.7 1.5-4.5 g/dL Bilirubin, Total 0.5 0.0-1.2 mg/dL Alkaline Phosphatase 101 44-121 IU/L AST (SGOT) 112 0-40 IU/L ALT (SGPT) 131 0-32 IU/L Comp. Metabolic Panel (14)-3 Reviewed date:07/05/2024 08:09:41 AM Interpretation: Performing Lab:[facility], [address] [place] [address], [place], Phone - [phone], Director - Jassi Notes/Report: Glucose 150 70-99 mg/dL BUN 12 6-20 mg/dL Creatinine 0.64 0.57-1.00 mg/dL eGFR 117 >59 mL/min/1.73 BUN/Creatinine Ratio 19 9-23 Sodium 138 134-144 mmol/L Potassium 4.1 3.5-5.2 mmol/L Chloride 100 96-106 mmol/L Carbon Dioxide, Total 23 20-29 mmol/L Calcium 9.0 8.7-10.2 mg/dL Protein, Total 6.8 6.0-8.5 g/dL Albumin 4.3 3.9-4.9 g/dL Globulin, Total 2.5 1.5-4.5 g/dL Bilirubin, Total 0.4 0.0-1.2 mg/dL Alkaline Phosphatase 93 44-121 IU/L AST (SGOT) 36 0-40 IU/L ALT (SGPT) 52 0-32 IU/L REASON FOR REFERRAL Diagnosis 1 Psoriasis, unspecifi ed (L40.9) Referral Organization [facility] Referring Provider First Name NEHEMIAS Referring Provider Last Name TAYLA Referring Provider Speciality Internal M edicine Referred Provider Specialty Dermatology General Notes Rubia Figueroa 2023 09:55:51 AM > referral sent to [facility] , [address] [place] [address], [address], [place] [address], [email or web address], , Referral Priority Routine MEDICATIONS Medication SIG (Take, Route, Frequency, Duration) Notes Start Date End Date Status Docusate Sodium 100 MG TAKE 1 CAPSULE BY MOUTH TWICE A DAY Oral for 30 Days Active Clobetasol Propionate 0.05 % PLEASE SEE ATTACHED FOR DETAILED DIRECTIONS External for 30 Days Active Fluocinolone Acetonide 0.01 % APPLY 3-4 DROPS TO BOTH EAR DAILY UNTIL SYMPTOMS IMPROVED. THEN USE NEEDED FOR MAINTENANCE. Otic for 30 Days Active Loratadine 10 MG TAKE 1 TABLET BY BLAISE TH EVERY DAY FOR 90 DAYS for 90 Active Vitamin D3 50 MCG (1999 UT) TAKE 1 CAPSU LE BY MOUTH EVERY DAY FOR 90 DAYS for 90 Active Albuterol Sulfate (2.5 MG/3ML) 0.083% 3 mL as needed Inhalation every 6 hrs for 30 days 09/12/2024 Active Montelukast Sodium 10 MG 1 tablet Orally Once a day for 90 days Active Vitamin B-1 Active [facility] D3 50 MCG (1999) 1 capsule Orally Once a day for 90 days Active Otezla 30 MG 1 tablet Orally Twic e a day Active Famotidine 20 MG 1 tablet as needed O rally Twice a day Active IMMUNIZATIONS Vaccine Route Administration Date Status Comme nts Tdap IM Intramuscular 07/11/2024 Administered SOCIAL HISTORY Tobacco Use: Social History Observation Description Date Details (start date - stop date) Never Smoker NA - NA Sex Assigned At : Social History Observation Description Sex Assigned At Unknown Tobacco Use/Smoking Question Answer Notes Are you a nonsmoker Section Notes: medical billing specialist medical billing specialist medical billing specialist medical billing specialist See HPI medical billing specialist medical billing specialist medical billing specialist medical billing specialist medical billing specialist medical billing specialist medical billing specialist medical billing specialist medical billing specialist medical billing specialist medical billing specialist See HPI medical billing specialist medical billing specialist medical billing specialist medical billing specialist medical billing specialist medical billing specialist medical billing specialist See HPI PROBLEMS Problem Type ICD Code Onset Dates Problem Status W/U Status Risk SNOMED Code Notes Problem Gallstones (K80.20) Active confirmed Gallstones (786505316) Problem Gastroesophageal reflux disease, unspecified whether esophagitis present (K21.9) Active confirmed 450269830 Problem Mass of left axilla (R22.32) Active confirmed 584792706784763448 Problem Vitamin D deficiency, unspecified (E55.9) Active confirmed 65540870 Problem Morbid (severe) obesity due to excess calories (E66.01) Active confirmed 449620732 Problem Psoriasis, unspecified (L40.9) Active confirmed Psoriasis (7462993) Problem Hyperlipidemia, unspecified hyperlipidemia type (E78.5) Active confirmed 01167536 Problem Psoriatic arthritis (L40.50) Active confirmed Psoriatic arthritis (378668350) Problem Gall stones (K80.20) Active confirmed Gallstone (865232272) Problem Vitamin D deficiency (E55.9) Active confirmed Vitamin D deficiency (45766383) Problem Fatty liver (K76.0) Active confirmed Fatty liver (176582001) Problem СЕРГЕЙ (obstructive sleep apnea) (G47.33) Active confirmed Obstructive sle ep apnea syndrome (94271877) Problem BMI 40.0-44.9, adult (Z68.41) Active confirmed 586251184 Problem Type 2 diabetes mellitus without complication, unspecified whether penitentiary insulin use (E11.9) Active confirmed 08185503 Problem PCOS (polycystic ovarian syndrome) (E28.2) Active confirmed Polycystic ovar y syndrome (disorder) (483554661) Problem High blood pressure determined by examination (I10) Active confirmed Essential hypertension (35482003) Problem Anemia due to vitamin B12 deficiency, 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) Active confirmed 89933896 Problem GERD without esophagitis (K21.9) Active confirmed Gastroesophagea l reflux disease (271063986) Problem Difficulty concentrating (R41.840) Active confirmed 94590016 Problem Type 2 diabetes mellitus with hyperglycemia (E11.65) Active confirmed Hyperglycemia d ue to type 2 diabetes mellitus (517456631562451) Problem Mixed hyperlipidemia (E78.2) Active confirmed Mixed hyperlipi demia (349400923) Problem Nasal congestion (R09.81) Active confirmed Nasal congestio n (12579304) Problem Encounter for general adult medical examination without abnormal findings (Z00.00) Active confirmed 095845409 Problem Acquired hypothyroidism (E03.9) Active confirmed 541656519 Problem Hypothyroidism, unspecified type (E03.9) Active confirmed 25179614 Problem Seasonal allergies (J30.2) Active confirmed 003192458 Problem Infertility, female (N97.9) Active confirmed Female infert ility (6036498) Problem Lipid screening (Z13.220) Active confirmed 256679603 Problem Memory changes (R41.3) Active confirmed Amnesia (10579629) Problem Type 2 diabetes mellitus with hyperglycemia, without long-term current use of insulin (E11.65) Active confirmed 22813517 Problem Mild intermittent asthma without complication (J45.20) Active confirmed 162399134 Problem Gastroesophageal reflux disease without esophagitis (K21.9) Active confirmed Gastroesophagea l reflux disease without esophagitis (661974236) Problem Elevated liver enzymes (R74.8) Active confirmed Elevated shirley er enzymes level (394616502) Problem Annual physical exam (Z00.00) Active confirmed Annual health maintenance examination (91176838) Problem Hyperlipidemia, unspecified (E78.5) Active confirmed Hyperlipidemia (63249761) Problem Diabetes insipidus (E23.2) Active confirmed Diabetes insipi dus (6099564828) Problem Type 2 diabetes mellitus with unspecified complications (E11.8) Active confirmed 83474144 Problem Diabetes mellitus due to underlying 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 complications (E08.9) Active confirmed Secondary endoc rine diabetes mellitus (049476429) VITAL SIGNS Heart Rate 101 /min 12/25/2024 Blood pressure diastolic 82 mm Hg 12/25/2024 Oximetry 97 % 12/25/2024 Height 64 in 12/25/2024 Blood pressure systolic 126 mm Hg 12/25/2024 Weight 196.8 lbs 12/25/2024 BMI 33.78 kg/m2 12/25/2024 Encounters Encounter Location Date Provider Diagnosis [facility] [address] [place] [address] 06/29/2024 NEHEMIAS BOURNE [facility] [address] [place] [address] 02/22/2024 NEHEMIAS BOURNE GERD without esophag itis K21.9 ; Hypothyroidism, unspecified type E03.9 ; Type 2 diabetes mellitus with hyperglycemia E11.65 ; Gastroesophageal reflux disease without esophagitis K21.9 ; Mixed hyperlipidemia E78.2 ; Infertility, female N97.9 ; Seasonal allergies J30.2 ; Acquired hypothyroidism E03.9 and Elevated liver enzymes R74.8 [facility] [address] [place] [address] 07/11/2024 NEHEMIAS BOURNE GERD without esophag itis K21.9 ; Wellness examination Z00.00 ; Type 2 diabetes mellitus with hyperglycemia E11.65 ; Gastroesophageal reflux disease without esophagitis K21.9 ; Mixed hyperlipidemia E78.2 ; Infertility, female N97.9 ; Seasonal allergies J30.2 ; Encounter for immunization Z23 ; Pain in right hip M25.551 and Pain in left hip M25.552 [facility] [address] [place] [address] 09/12/2024 DOUGLAS COLE Close exposure to 2019-nCoV Z20.822 ; RSV (respiratory syncytial virus infection) B33.8 ; RSV exposure Z20.828 and Acute cough R05.1 [facility] [address] [place] [address] 12/25/2024 NEHEMIAS BOURNE GERD without esophag itis K21.9 ; Psoriatic arthritis L40.50 ; Mixed hyperlipidemia E78.2 ; Infertility, female N97.9 ; Seasonal allergies J30.2 ; Pain in right hip M25.551 ; Pain in left hip M25.552 ; Difficulty concentrating R41.840 and Hyperglycemia R73.9 [facility] [address] [place] [address] 01/03/2024 TALAL WALTON GERD without esophag itis K21.9 [facility] [address] [place] [address] 05/18/2024 [facility] [address] [place] [address] 07/07/2024 [facility] [address] [address] 07/11/2024 NEHEMIAS BOURNE [address] [place] [address] [place] [address] [facility] [address] [place] [address] 03/10/2024 NEHEMIAS BOURNE [address] [place] [place] [address] 04/12/2024 NEHEMIAS BOURNE [address] [place] [place] [address] 05/18/2024 [facility] [address] [place] [place] [address] 06/23/2024 [facility] [address] [address] 07/20/2024 NEHEMIAS BOURNE [address] [address] 08/23/2024 NEHEMIAS BOURNE [address] [address] 09/12/2024 NEHEMIAS BOURNE [address] [address] 09/27/2024 NEHEMIAS BOURNE [address] [address] 10/30/2024 NEHEMIAS BOURNE ASSESSMENTS Encounter Date Diagnosis Assessment Notes Treatment Notes Treatment Clinical Notes Section Notes 01/03/2024 GERD without esophagitis (ICD-10 - K21.9) 02/22/2024 GERD without esophagitis (ICD-10 - K21.9) #Diabetes Mellitus, PCOS: Patient discontinued IVF treatment. Patient currently takes Metformin 1000mg BID and Mounjaro 5mg. CBC on 02/18/2024 revealed glucose of 149 and HgbA1c of 7.5. HbgA1c in office 7.1. She is using Dexcom. Morning sugars range from 140-180. Will continue metformin 1000mg BID and will increase Mounjaro to 7.5mg. Will repeat labs and review in 4 months. #Hyperlipidemia: Patient restarted rosuvastatin 5mg. No acute concerns. Labs on 02/18/2024 reveal total cholesterol 177, triglycerides 121, HDL 63, and LDL 93. Continue rosuvastatin 5mg. #Hypothyroidism: Patient has not taken levothyroxine in 1-2 months. TSH on 02/18/2024 was 1.47. Patient wishes to discontinue levothyroxine completely. Will discontinue medication and continue to monitor TSH levels. # Vitamin D deficiency: Continue vitamin D # GERD: Patient on omeprazole 40mg for acid reflux. Reports having no reflux since restarting medication. Educated patient on long terms effects including decreased bone density and reliance on the medication. Talked to patient about cutting dose to 20mg a day. Patient understands and will try. # Elevated liver enzymes: Has had a CT showing fatty liver disease and cholesterol in her gallbladder. Tirzepatide has been proven to help at this time, but working on lifestyle/weight loss as well declines red flag symptoms. Follow-up in 4 months for complete physical with labs, sooner as needed All quetsions answered to patients satisfaction. Patient verbalized understanding of diagnosis and treatments explained. To call sooner prior to next visit it any questions/concerns arise. Case discussed with collaborating physician Aramis Walton who reviewed the assessment and plan. Chart, medications, labs, vital signs reviewed. Dictation was accomplished with the use of [employer] voice recognition software, prone to medical misidentifications and grammatical errors. This is unintentional and the practitioner does try to identify and correct these, but some could still be present. Please do not hesitate to contact practitioner for clarification. 07/11/2024 Wellness examination (ICD-10 - Z00.00) Pleasant 34-year-old female here for complete physical exam. # Patient needs a letter of support from us fax over to general surgical care and bariatric surgery at [phone]. Will fill it out and fax over. # Admits to right hip pain, worse than left but does admit to bilateral hip pain for the past 3 months, on and off. Questioning arthritis and is hoping for x-rays. Physical exam overall benign. No red flag symptoms. Declines any numbness, tingling or weakness. Has been exercising more to try to assist with weight loss.Will order x-rays of bilateral hips. Call with concern. Discussed conservative treatments in the meantime. #Has an appoint with cardiology in August after an abnormal EKG with bariatric surgeon. Will try to obtain records for this.Patient is unsure any further information. #Referring to [facility] for psoriasis. Also has rash of the scalp, for which ketoconazole shampoo has worked in the past, will prescribe. #Diabetes Mellitus, PCOS: Patient discontinued IVF treatment. Patient currently takes Metformin 1000mg BID and Mounjaro 5mg. CBC on 02/18/2024 revealed glucose of 149 and HgbA1c of 7.5. HbgA1c in office 7.1. Most recent values June 2024 showing hemoglobin A1c 5.5, fasting sugars 111. Continuing Mounjaro 10 mg, decrease metformin to 500 mg twice daily, repeat labs in 6 months, and continue decreasing medication dose with continued improvement. #Hyperlipidemia: Patient restarted rosuvastatin 5mg. No acute concerns. Most recent labs in June 2024 within normal limits. No change to treatment at this time. #Hypothyroidism: Patient has not taken levothyroxine in 1-2 months. TSH on 02/18/2024 was 1.47. Patient wishes to discontinue levothyroxine completely. Will discontinue medication, Monitor levels in the future. No concern at this time. # Vitamin D deficiency: Continue vitamin D # GERD: Patient on omeprazole 40mg for acid reflux. Reports having no reflux since restarting medication. Educated patient on long terms effects including decreased bone density and reliance on the medication. Talked to patient about cutting dose to 20mg a day. Patient understands and will try. # Elevated liver enzymes: Has had a CT showing fatty liver disease and cholesterol in her gallbladder. Tirzepatide has been proven to help at this time, but working on lifestyle/weight loss as well declines red flag symptoms.Most recent liver enzymes have almost normalized. Continue to encourage weight loss. # Patient up-to-date on all screening test, up-to-date on the flu obtain Tdap today. Declines COVID. Healthcare proxy filled out today 07/11/2024. # PHQ-9 with a total score 9. Patient does admit to slight depression, declines suicidal ideation but continues to decline any further conversation. Offered/recommended therapy, psychiatry, supplements, or pharmaceutical medications which she declines. Did offer support. Patient follow-up in 6 months, will call with results of x-ray in the meantime. [facility] in the meantime as well. Patient seen and examined. Comprehensive discussion was done on the following. 1. Nutrition: It is important to follow a healthy diet based on lots of vegetables and legumes and good fat. Avoid processed food and processed carbohydrates. Prepare your own meals. Read labels and avoid high fructose corn syrup, processed chemicals added to increase shelf life and preprepared meals. Avoid fast foods. Eat slowly and plan meals for a week. Try to count calories and be mindful off daily calorie intake. Get into the habit of keeping an eye on your weight by using an appropriate scale. Learn to log exercise and discussed fitness Apps like [employer] which can help keep log off calories taken versus calories burned. Local food should be preferred. Discussed Dirty Dozen Versus Clean Fifteen. Discussed healthy supplements like fish oil, Tumeric, Curcumin, Melatonin, Resveratrol, Probiotics, Vitamin-D, Alpha-Lipoic acid, Vitamin-D and coconut oil. 2. It is important to exercise regularly. Is a good habit to walk at least 30 minutes a day. Gentle weightlifting with standard precautions to protect the back. Finding activity like cycling or hiking and get into the habit of engaging in it. Stretching before and after the exercises important. It is also important to contact me if there are any problems like shortness of breath, chest pain, back pain and joint or muscle pain associated with the exercise. 3. Discussed age appropriate screening guidelines. Colonoscopy needs to start at age 50 with stool for occult blood as appropriate. There is a new test that can test for genetic abnormalities in the stool sample, Cologuard. This would not replace a colonoscopy but could be used as a screening tool for patients who do not want a colonoscopy. We discussed the importance of early detection of colon cancer. 4. Discussed current guidelines with respect to breast examination, mammogram and pap smear for early detection of breast and cervical cancer. Patient advised to follow up with these appointments. 5. Discussed safe driving and no use of smart phone while driving 6. Age-appropriate immunizations were discussed. A tetanus booster is needed every 10 years. Flu vaccine is recommended every year just before the start of the flu season. Shingles vaccine is recommended after age 50 but not all insurances cover it. Pneumonia vaccine is given after age 65 unless there are certain comorbidities for which it is started earlier. 7. Diagnostic labs were discussed. These could include/not limited to CBC CMP and lipids with fasting blood glucose and insulin levels. Vitamin D and hemoglobin A1c testing might be appropriate. All quetsions answered to patients satisfaction. Patient verbalized understanding of diagnosis and treatments explained. To call sooner prior to next visit it any questions/concerns arise. Case discussed with collaborating physician Aramis Walton who reviewed the assessment and plan. Chart, medications, labs, vital signs reviewed. Dictation was accomplished with the use of [employer] voice recognition software, prone to medical misidentifications and grammatical errors. This is unintentional and the practitioner does try to identify and correct these, but some could still be present. Please do not hesitate to contact practitioner for clarification. 07/11/2024 GERD without esophagitis (ICD-10 - K21.9) Pleasant 34-year-old female here for complete physical exam. # Patient needs a letter of support from us fax over to general surgical care and bariatric surgery at [phone]. Will fill it out and fax over. # Admits to right hip pain, worse than left but does admit to bilateral hip pain for the past 3 months, on and off. Questioning arthritis and is hoping for x-rays. Physical exam overall benign. No red flag symptoms. Declines any numbness, tingling or weakness. Has been exercising more to try to assist with weight loss.Will order x-rays of bilateral hips. Call with concern. Discussed conservative treatments in the meantime. #Has an appoint with cardiology in August after an abnormal EKG with bariatric surgeon. Will try to obtain records for this.Patient is unsure any further information. #Referring to [facility] for psoriasis. Also has rash of the scalp, for which ketoconazole shampoo has worked in the past, will prescribe. #Diabetes Mellitus, PCOS: Patient discontinued IVF treatment. Patient currently takes Metformin 1000mg BID and Mounjaro 5mg. CBC on 02/18/2024 revealed glucose of 149 and HgbA1c of 7.5. HbgA1c in office 7.1. Most recent values June 2024 showing hemoglobin A1c 5.5, fasting sugars 111. Continuing Mounjaro 10 mg, decrease metformin to 500 mg twice daily, repeat labs in 6 months, and continue decreasing medication dose with continued improvement. #Hyperlipidemia: Patient restarted rosuvastatin 5mg. No acute concerns. Most recent labs in June 2024 within normal limits. No change to treatment at this time. #Hypothyroidism: Patient has not taken levothyroxine in 1-2 months. TSH on 02/18/2024 was 1.47. Patient wishes to discontinue levothyroxine completely. Will discontinue medication, Monitor levels in the future. No concern at this time. # Vitamin D deficiency: Continue vitamin D # GERD: Patient on omeprazole 40mg for acid reflux. Reports having no reflux since restarting medication. Educated patient on long terms effects including decreased bone density and reliance on the medication. Talked to patient about cutting dose to 20mg a day. Patient understands and will try. # Elevated liver enzymes: Has had a CT showing fatty liver disease and cholesterol in her gallbladder. Tirzepatide has been proven to help at this time, but working on lifestyle/weight loss as well declines red flag symptoms.Most recent liver enzymes have almost normalized. Continue to encourage weight loss. # Patient up-to-date on all screening test, up-to-date on the flu obtain Tdap today. Declines COVID. Healthcare proxy filled out today 07/11/2024. # PHQ-9 with a total score 9. Patient does admit to slight depression, declines suicidal ideation but continues to decline any further conversation. Offered/recommended therapy, psychiatry, supplements, or pharmaceutical medications which she declines. Did offer support. Patient follow-up in 6 months, will call with results of x-ray in the meantime. [facility] in the meantime as well. Patient seen and examined. Comprehensive discussion was done on the following. 1. Nutrition: It is important to follow a healthy diet based on lots of vegetables and legumes and good fat. Avoid processed food and processed carbohydrates. Prepare your own meals. Read labels and avoid high fructose corn syrup, processed chemicals added to increase shelf life and preprepared meals. Avoid fast foods. Eat slowly and plan meals for a week. Try to count calories and be mindful off daily calorie intake. Get into the habit of keeping an eye on your weight by using an appropriate scale. Learn to log exercise and discussed fitness Apps like [employer] which can help keep log off calories taken versus calories burned. Local food should be preferred. Discussed D[employer]zen Versus Clean Fifteen. Discussed healthy supplements like fish oil, Tumeric, Curcumin, Melatonin, Resveratrol, Probiotics, Vitamin-D, Alpha-Lipoic acid, Vitamin-D and coconut oil. 2. It is important to exercise regularly. Is a good habit to walk at least 30 minutes a day. Gentle weightlifting with standard precautions to protect the back. Finding activity like cycling or hiking and get into the habit of engaging in it. Stretching before and after the exercises important. It is also important to contact me if there are any problems like shortness of breath, chest pain, back pain and joint or muscle pain associated with the exercise. 3. Discussed age appropriate screening guidelines. Colonoscopy needs to start at age 50 with stool for occult blood as appropriate. There is a new test that can test for genetic abnormalities in the stool sample, Cologuard. This would not replace a colonoscopy but could be used as a screening tool for patients who do not want a colonoscopy. We discussed the importance of early detection of colon cancer. 4. Discussed current guidelines with respect to breast examination, mammogram and pap smear for early detection of breast and cervical cancer. Patient advised to follow up with these appointments. 5. Discussed safe driving and no use of smart phone while driving 6. Age-appropriate immunizations were discussed. A tetanus booster is needed every 10 years. Flu vaccine is recommended every year just before the start of the flu season. Shingles vaccine is recommended after age 50 but not all insurances cover it. Pneumonia vaccine is given after age 65 unless there are certain comorbidities for which it is started earlier. 7. Diagnostic labs were discussed. These could include/not limited to CBC CMP and lipids with fasting blood glucose and insulin levels. Vitamin D and hemoglobin A1c testing might be appropriate. All quetsions answered to patients satisfaction. Patient verbalized understanding of diagnosis and treatments explained. To call sooner prior to next visit it any questions/concerns arise. Case discussed with collaborating physician Aramis Walton who reviewed the assessment and plan. Chart, medications, labs, vital signs reviewed. Dictation was accomplished with the use of [employer] voice recognition software, prone to medical misidentifications and grammatical errors. This is unintentional and the practitioner does try to identify and correct these, but some could still be present. Please do not hesitate to contact practitioner for clarification. 09/12/2024 RSV (respiratory syncytial virus infection) (ICD-10 - B33.8) # RSV Positive: Most likely RSV due to symptoms and exposure from who tested positive last week. Albuterol nebulizer and inhaler, guaifenesin w/ coedine, and Mucinex sent to pharmacy. Patient is aware that guaifenesin with codeine is considered a narcotic, and patient is to not drive or taking anything sedadtive. Informed the patient to not drive while on cough medicine. Advised patient to alternate ibuprofen and Tylenol. Advised her to use a humidifier, cough drops, and honey for sore throat. Emphasized the importance of hydration and rest. Informed patient cough may persist for 4-6 weeks. Case discussed with collaborating physician Radha Walton who reviewed the assessment and plan. Chart, medications, labs, vital signs reviewed. Dictation was accomplished with the use of [employer] voice recognition software, prone to medical misidentifications and grammatical errors. This is unintentional and the practitioner does try to identify and correct these, but some could still be present. Please do not hesitate to contact practitioner for clarification. All questions answered to patients satisfaction. Patient verbalized understanding of diagnosis and treatments explained. To call sooner prior to next visit it any questions/concerns arise. 09/12/2024 Close exposure to 2019-nCoV (ICD-10 - Z20.822) # RSV Positive: Most likely RSV due to symptoms and exposure from who tested positive last week. Albuterol nebulizer and inhaler, guaifenesin w/ coedine, and Mucinex sent to pharmacy. Patient is aware that guaifenesin with codeine is considered a narcotic, and patient is to not drive or taking anything sedadtive. Informed the patient to not drive while on cough medicine. Advised patient to alternate ibuprofen and Tylenol. Advised her to use a humidifier, cough drops, and honey for sore throat. Emphasized the importance of hydration and rest. Informed patient cough may persist for 4-6 weeks. Case discussed with collaborating physician Radha Walton who reviewed the assessment and plan. Chart, medications, labs, vital signs reviewed. Dictation was accomplished with the use of [employer] voice recognition software, prone to medical misidentifications and grammatical errors. This is unintentional and the practitioner does try to identify and correct these, but some could still be present. Please do not hesitate to contact practitioner for clarification. All questions answered to patients satisfaction. Patient verbalized understanding of diagnosis and treatments explained. To call sooner prior to next visit it any questions/concerns arise. 12/25/2024 Psoriatic arthritis (ICD-10 - L40.50) # Patient had bariatric surgery with the gastric sleeve December 2024, doing really well. Last visit patient's weight 224, today 196. Taking B vitamins, still on pureed diet, following with a staff developer, and surgeon. Pleased with progress overall. Taking famotidine, Zofran as needed # Admits to right hip pain, worse than left but does admit to bilateral hip pain for the past 3 months, on and off. Questioning arthritis and is hoping for x-rays. Physical exam overall benign. No red flag symptoms. Declines any numbness, tingling or weakness. Has been exercising more to try to assist with weight loss. Patient followed with dermatology who diagnosed her with psoriatic arthritis, taking Otezla 30 mg twice daily with improvement in joint pain. #Referring to [facility] for psoriasis. Prescribed clobetasol and fluocinolone with improvement. Also prescribing Otezla for psoriatic arthritis. #Diabetes Mellitus, PCOS: Patient discontinued IVF treatment. Patient currently takes Metformin 1000mg BID and Mounjaro 5mg. CBC on 02/18/2024 revealed glucose of 149 and HgbA1c of 7.5. HbgA1c in office 7.1. Most recent values June 2024 showing hemoglobin A1c 5.5, fasting sugars 111. As of December 25, 2024, patient has discontinued metformin and Mounjaro as recommended by bariatric surgeon. She has been doing well, A1c in office December 25, 2024 5.1. #Hyperlipidemia: Patient restarted rosuvastatin 5mg. Has since discontinued by bariatric surgeon. Will repeat lipids and adjust as needed #Hypothyroidism: Patient has not taken levothyroxine in 1-2 months. TSH on 02/18/2024 was 1.47. Patient wishes to discontinue levothyroxine completely. Will discontinue medication, Ordering values for next visit. # Vitamin D deficiency: Continue vitamin D # GERD: Omeprazole discontinued, now taking famotidine 20 mg twice daily with improvement. # Elevated liver enzymes: Repeating values. # Patient up-to-date on all screening test She is interested in. Declines COVID. Healthcare proxy filled out 07/11/2024. # PHQ-9 with a total score 9. 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 Given information for [facility] Follow-up in July for complete physical, fasting labs prior, adjust treatment and medications as needed. All quetsions answered to patients satisfaction. Patient verbalized understanding of diagnosis and treatments explained. To call sooner prior to next visit it any questions/concerns arise. Case discussed with collaborating physician Aramis Walton who reviewed the assessment and plan. Chart, medications, labs, vital signs reviewed. Dictation was accomplished with the use of [employer] voice recognition software, prone to medical misidentifications and grammatical errors. This is unintentional and the practitioner does try to identify and correct these, but some could still be present. Please do not hesitate to contact practitioner for clarification. 12/25/2024 GERD without esophagitis (ICD-10 - K21.9) # Patient had bariatric surgery with the gastric sleeve December 2024, doing really well. Last visit patient's weight 224, today 196. Taking B vitamins, still on pureed diet, following with a staff developer, and surgeon. Pleased with progress overall. Taking famotidine, Zofran as needed # Admits to right hip pain, worse than left but does admit to bilateral hip pain for the past 3 months, on and off. Questioning arthritis and is hoping for x-rays. Physical exam overall benign. No red flag symptoms. Declines any numbness, tingling or weakness. Has been exercising more to try to assist with weight loss. Patient followed with dermatology who diagnosed her with psoriatic arthritis, taking Otezla 30 mg twice daily with improvement in joint pain. #Referring to [facility] for psoriasis. Prescribed clobetasol and fluocinolone with improvement. Also prescribing Otezla for psoriatic arthritis. #Diabetes Mellitus, PCOS: Patient discontinued IVF treatment. Patient currently takes Metformin 1000mg BID and Mounjaro 5mg. CBC on 02/18/2024 revealed glucose of 149 and HgbA1c of 7.5. HbgA1c in office 7.1. Most recent values June 2024 showing hemoglobin A1c 5.5, fasting sugars 111. As of December 25, 2024, patient has discontinued metformin and Mounjaro as recommended by bariatric surgeon. She has been doing well, A1c in office December 25, 2024 5.1. #Hyperlipidemia: Patient restarted rosuvastatin 5mg. Has since discontinued by bariatric surgeon. Will repeat lipids and adjust as needed #Hypothyroidism: Patient has not taken levothyroxine in 1-2 months. TSH on 02/18/2024 was 1.47. Patient wishes to discontinue levothyroxine completely. Will discontinue medication, Ordering values for next visit. # Vitamin D deficiency: Continue vitamin D # GERD: Omeprazole discontinued, now taking famotidine 20 mg twice daily with improvement. # Elevated liver enzymes: Repeating values. # Patient up-to-date on all screening test She is interested in. Declines COVID. Healthcare proxy filled out 07/11/2024. # PHQ-9 with a total score 9. 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 Given information for [facility] Follow-up in July for complete physical, fasting labs prior, adjust treatment and medications as needed. All quetsions answered to patients satisfaction. Patient verbalized understanding of diagnosis and treatments explained. To call sooner prior to next visit it any questions/concerns arise. Case discussed with collaborating physician Aramis Walton who reviewed the assessment and plan. Chart, medications, labs, vital signs reviewed. Dictation was accomplished with the use of [employer] voice recognition software, prone to medical misidentifications and grammatical errors. This is unintentional and the practitioner does try to identify and correct these, but some could still be present. Please do not hesitate to contact practitioner for clarification. 12/25/2024 Mixed hyperlipidemia (ICD-10 - E78.2) # Patient had bariatric surgery with the gastric sleeve December 2024, doing really well. Last visit patient's weight 224, today 196. Taking B vitamins, still on pureed diet, following with a staff developer, and surgeon. Pleased with progress overall. Taking famotidine, Zofran as needed # Admits to right hip pain, worse than left but does admit to bilateral hip pain for the past 3 months, on and off. Questioning arthritis and is hoping for x-rays. Physical exam overall benign. No red flag symptoms. Declines any numbness, tingling or weakness. Has been exercising more to try to assist with weight loss. Patient followed with dermatology who diagnosed her with psoriatic arthritis, taking Otezla 30 mg twice daily with improvement in joint pain. #Referring to [facility] for psoriasis. Prescribed clobetasol and fluocinolone with improvement. Also prescribing Otezla for psoriatic arthritis. #Diabetes Mellitus, PCOS: Patient discontinued IVF treatment. Patient currently takes Metformin 1000mg BID and Mounjaro 5mg. CBC on 02/18/2024 revealed glucose of 149 and HgbA1c of 7.5. HbgA1c in office 7.1. Most recent values June 2024 showing hemoglobin A1c 5.5, fasting sugars 111. As of December 25, 2024, patient has discontinued metformin and Mounjaro as recommended by bariatric surgeon. She has been doing well, A1c in office December 25, 2024 5.1. #Hyperlipidemia: Patient restarted rosuvastatin 5mg. Has since discontinued by bariatric surgeon. Will repeat lipids and adjust as needed #Hypothyroidism: Patient has not taken levothyroxine in 1-2 months. TSH on 02/18/2024 was 1.47. Patient wishes to discontinue levothyroxine completely. Will discontinue medication, Ordering values for next visit. # Vitamin D deficiency: Continue vitamin D # GERD: Omeprazole discontinued, now taking famotidine 20 mg twice daily with improvement. # Elevated liver enzymes: Repeating values. # Patient up-to-date on all screening test She is interested in. Declines COVID. Healthcare proxy filled out 07/11/2024. # PHQ-9 with a total score 9. 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 Given information for [facility] Follow-up in July for complete physical, fasting labs prior, adjust treatment and medications as needed. All quetsions answered to patients satisfaction. Patient verbalized understanding of diagnosis and treatments explained. To call sooner prior to next visit it any questions/concerns arise. Case discussed with collaborating physician Aramis Walton who reviewed the assessment and plan. Chart, medications, labs, vital signs reviewed. Dictation was accomplished with the use of [employer] voice recognition software, prone to medical misidentifications and grammatical errors. This is unintentional and the practitioner does try to identify and correct these, but some could still be present. Please do not hesitate to contact practitioner for clarification. 09/12/2024 RSV exposure (ICD-10 - Z20.828) # RSV Positive: Most likely RSV due to symptoms and exposure from who tested positive last week. Albuterol nebulizer and inhaler, guaifenesin w/ coedine, and Mucinex sent to pharmacy. Patient is aware that guaifenesin with codeine is considered a narcotic, and patient is to not drive or taking anything sedadtive. Informed the patient to not drive while on cough medicine. Advised patient to alternate ibuprofen and Tylenol. Advised her to use a humidifier, cough drops, and honey for sore throat. Emphasized the importance of hydration and rest. Informed patient cough may persist for 4-6 weeks. Case discussed with collaborating physician Radha Walton who reviewed the assessment and plan. Chart, medications, labs, vital signs reviewed. Dictation was accomplished with the use of [employer] voice recognition software, prone to medical misidentifications and grammatical errors. This is unintentional and the practitioner does try to identify and correct these, but some could still be present. Please do not hesitate to contact practitioner for clarification. All questions answered to patients satisfaction. Patient verbalized understanding of diagnosis and treatments explained. To call sooner prior to next visit it any questions/concerns arise. 07/11/2024 Type 2 diabetes mellitus with hyperglycemia (ICD-10 - E11.65) Pleasant 34-year-old female here for complete physical exam. # Patient needs a letter of support from us fax over to general surgical care and bariatric surgery at [phone]. Will fill it out and fax over. # Admits to right hip pain, worse than left but does admit to bilateral hip pain for the past 3 months, on and off. Questioning arthritis and is hoping for x-rays. Physical exam overall benign. No red flag symptoms. Declines any numbness, tingling or weakness. Has been exercising more to try to assist with weight loss.Will order x-rays of bilateral hips. Call with concern. Discussed conservative treatments in the meantime. #Has an appoint with cardiology in August after an abnormal EKG with bariatric surgeon. Will try to obtain records for this.Patient is unsure any further information. #Referring to [facility] for psoriasis. Also has rash of the scalp, for which ketoconazole shampoo has worked in the past, will prescribe. #Diabetes Mellitus, PCOS: Patient discontinued IVF treatment. Patient currently takes Metformin 1000mg BID and Mounjaro 5mg. CBC on 02/18/2024 revealed glucose of 149 and HgbA1c of 7.5. HbgA1c in office 7.1. Most recent values June 2024 showing hemoglobin A1c 5.5, fasting sugars 111. Continuing Mounjaro 10 mg, decrease metformin to 500 mg twice daily, repeat labs in 6 months, and continue decreasing medication dose with continued improvement. #Hyperlipidemia: Patient restarted rosuvastatin 5mg. No acute concerns. Most recent labs in June 2024 within normal limits. No change to treatment at this time. #Hypothyroidism: Patient has not taken levothyroxine in 1-2 months. TSH on 02/18/2024 was 1.47. Patient wishes to discontinue levothyroxine completely. Will discontinue medication, Monitor levels in the future. No concern at this time. # Vitamin D deficiency: Continue vitamin D # GERD: Patient on omeprazole 40mg for acid reflux. Reports having no reflux since restarting medication. Educated patient on long terms effects including decreased bone density and reliance on the medication. Talked to patient about cutting dose to 20mg a day. Patient understands and will try. # Elevated liver enzymes: Has had a CT showing fatty liver disease and cholesterol in her gallbladder. Tirzepatide has been proven to help at this time, but working on lifestyle/weight loss as well declines red flag symptoms.Most recent liver enzymes have almost normalized. Continue to encourage weight loss. # Patient up-to-date on all screening test, up-to-date on the flu obtain Tdap today. Declines COVID. Healthcare proxy filled out today 07/11/2024. # PHQ-9 with a total score 9. Patient does admit to slight depression, declines suicidal ideation but continues to decline any further conversation. Offered/recommended therapy, psychiatry, supplements, or pharmaceutical medications which she declines. Did offer support. Patient follow-up in 6 months, will call with results of x-ray in the meantime. [facility] in the meantime as well. Patient seen and examined. Comprehensive discussion was done on the following. 1. Nutrition: It is important to follow a healthy diet based on lots of vegetables and legumes and good fat. Avoid processed food and processed carbohydrates. Prepare your own meals. Read labels and avoid high fructose corn syrup, processed chemicals added to increase shelf life and preprepared meals. Avoid fast foods. Eat slowly and plan meals for a week. Try to count calories and be mindful off daily calorie intake. Get into the habit of keeping an eye on your weight by using an appropriate scale. Learn to log exercise and discussed fitness Apps like [employer] which can help keep log off calories taken versus calories burned. Local food should be preferred. Discussed Dirty Dozen Versus Clean Fifteen. Discussed healthy supplements like fish oil, Tumeric, Curcumin, Melatonin, Resveratrol, Probiotics, Vitamin-D, Alpha-Lipoic acid, Vitamin-D and coconut oil. 2. It is important to exercise regularly. Is a good habit to walk at least 30 minutes a day. Gentle weightlifting with standard precautions to protect the back. Finding activity like cycling or hiking and get into the habit of engaging in it. Stretching before and after the exercises important. It is also important to contact me if there are any problems like shortness of breath, chest pain, back pain and joint or muscle pain associated with the exercise. 3. Discussed age appropriate screening guidelines. Colonoscopy needs to start at age 50 with stool for occult blood as appropriate. There is a new test that can test for genetic abnormalities in the stool sample, Cologuard. This would not replace a colonoscopy but could be used as a screening tool for patients who do not want a colonoscopy. We discussed the importance of early detection of colon cancer. 4. Discussed current guidelines with respect to breast examination, mammogram and pap smear for early detection of breast and cervical cancer. Patient advised to follow up with these appointments. 5. Discussed safe driving and no use of smart phone while driving 6. Age-appropriate immunizations were discussed. A tetanus booster is needed every 10 years. Flu vaccine is recommended every year just before the start of the flu season. Shingles vaccine is recommended after age 50 but not all insurances cover it. Pneumonia vaccine is given after age 65 unless there are certain comorbidities for which it is started earlier. 7. Diagnostic labs were discussed. These could include/not limited to CBC CMP and lipids with fasting blood glucose and insulin levels. Vitamin D and hemoglobin A1c testing might be appropriate. All quetsions answered to patients satisfaction. Patient verbalized understanding of diagnosis and treatments explained. To call sooner prior to next visit it any questions/concerns arise. Case discussed with collaborating physician Aramis Walton who reviewed the assessment and plan. Chart, medications, labs, vital signs reviewed. Dictation was accomplished with the use of [employer] voice recognition software, prone to medical misidentifications and grammatical errors. This is unintentional and the practitioner does try to identify and correct these, but some could still be present. Please do not hesitate to contact practitioner for clarification. 02/22/2024 Hypothyroidism, unspecified type (ICD-10 - E03.9) #Diabetes Mellitus, PCOS: Patient discontinued IVF treatment. Patient currently takes Metformin 1000mg BID and Mounjaro 5mg. CBC on 02/18/2024 revealed glucose of 149 and HgbA1c of 7.5. HbgA1c in office 7.1. She is using Dexcom. Morning sugars range from 140-180. Will continue metformin 1000mg BID and will increase Mounjaro to 7.5mg. Will repeat labs and review in 4 months. #Hyperlipidemia: Patient restarted rosuvastatin 5mg. No acute concerns. Labs on 02/18/2024 reveal total cholesterol 177, triglycerides 121, HDL 63, and LDL 93. Continue rosuvastatin 5mg. #Hypothyroidism: Patient has not taken levothyroxine in 1-2 months. TSH on 02/18/2024 was 1.47. Patient wishes to discontinue levothyroxine completely. Will discontinue medication and continue to monitor TSH levels. # Vitamin D deficiency: Continue vitamin D # GERD: Patient on omeprazole 40mg for acid reflux. Reports having no reflux since restarting medication. Educated patient on long terms effects including decreased bone density and reliance on the medication. Talked to patient about cutting dose to 20mg a day. Patient understands and will try. # Elevated liver enzymes: Has had a CT showing fatty liver disease and cholesterol in her gallbladder. Tirzepatide has been proven to help at this time, but working on lifestyle/weight loss as well declines red flag symptoms. Follow-up in 4 months for complete physical with labs, sooner as needed All quetsions answered to patients satisfaction. Patient verbalized understanding of diagnosis and treatments explained. To call sooner prior to next visit it any questions/concerns arise. Case discussed with collaborating physician Aramis Walton who reviewed the assessment and plan. Chart, medications, labs, vital signs reviewed. Dictation was accomplished with the use of [employer] voice recognition software, prone to medical misidentifications and grammatical errors. This is unintentional and the practitioner does try to identify and correct these, but some could still be present. Please do not hesitate to contact practitioner for clarification. 02/22/2024 Type 2 diabetes mellitus with hyperglycemia (ICD-10 - E11.65) #Diabetes Mellitus, PCOS: Patient discontinued IVF treatment. Patient currently takes Metformin 1000mg BID and Mounjaro 5mg. CBC on 02/18/2024 revealed glucose of 149 and HgbA1c of 7.5. HbgA1c in office 7.1. She is using Dexcom. Morning sugars range from 140-180. Will continue metformin 1000mg BID and will increase Mounjaro to 7.5mg. Will repeat labs and review in 4 months. #Hyperlipidemia: Patient restarted rosuvastatin 5mg. No acute concerns. Labs on 02/18/2024 reveal total cholesterol 177, triglycerides 121, HDL 63, and LDL 93. Continue rosuvastatin 5mg. #Hypothyroidism: Patient has not taken levothyroxine in 1-2 months. TSH on 02/18/2024 was 1.47. Patient wishes to discontinue levothyroxine completely. Will discontinue medication and continue to monitor TSH levels. # Vitamin D deficiency: Continue vitamin D # GERD: Patient on omeprazole 40mg for acid reflux. Reports having no reflux since restarting medication. Educated patient on long terms effects including decreased bone density and reliance on the medication. Talked to patient about cutting dose to 20mg a day. Patient understands and will try. # Elevated liver enzymes: Has had a CT showing fatty liver disease and cholesterol in her gallbladder. Tirzepatide has been proven to help at this time, but working on lifestyle/weight loss as well declines red flag symptoms. Follow-up in 4 months for complete physical with labs, sooner as needed All quetsions answered to patients satisfaction. Patient verbalized understanding of diagnosis and treatments explained. To call sooner prior to next visit it any questions/concerns arise. Case discussed with collaborating physician Aramis Walton who reviewed the assessment and plan. Chart, medications, labs, vital signs reviewed. Dictation was accomplished with the use of [employer] voice recognition software, prone to medical misidentifications and grammatical errors. This is unintentional and the practitioner does try to identify and correct these, but some could still be present. Please do not hesitate to contact practitioner for clarification. 02/22/2024 Gastroesophageal reflux disease without esophagitis (ICD-10 - K21.9) #Diabetes Mellitus, PCOS: Patient discontinued IVF treatment. Patient currently takes Metformin 1000mg BID and Mounjaro 5mg. CBC on 02/18/2024 revealed glucose of 149 and HgbA1c of 7.5. HbgA1c in office 7.1. She is using Dexcom. Morning sugars range from 140-180. Will continue metformin 1000mg BID and will increase Mounjaro to 7.5mg. Will repeat labs and review in 4 months. #Hyperlipidemia: Patient restarted rosuvastatin 5mg. No acute concerns. Labs on 02/18/2024 reveal total cholesterol 177, triglycerides 121, HDL 63, and LDL 93. Continue rosuvastatin 5mg. #Hypothyroidism: Patient has not taken levothyroxine in 1-2 months. TSH on 02/18/2024 was 1.47. Patient wishes to discontinue levothyroxine completely. Will discontinue medication and continue to monitor TSH levels. # Vitamin D deficiency: Continue vitamin D # GERD: Patient on omeprazole 40mg for acid reflux. Reports having no reflux since restarting medication. Educated patient on long terms effects including decreased bone density and reliance on the medication. Talked to patient about cutting dose to 20mg a day. Patient understands and will try. # Elevated liver enzymes: Has had a CT showing fatty liver disease and cholesterol in her gallbladder. Tirzepatide has been proven to help at this time, but working on lifestyle/weight loss as well declines red flag symptoms. Follow-up in 4 months for complete physical with labs, sooner as needed All quetsions answered to patients satisfaction. Patient verbalized understanding of diagnosis and treatments explained. To call sooner prior to next visit it any questions/concerns arise. Case discussed with collaborating physician Aramis Walton who reviewed the assessment and plan. Chart, medications, labs, vital signs reviewed. Dictation was accomplished with the use of [employer] voice recognition software, prone to medical misidentifications and grammatical errors. This is unintentional and the practitioner does try to identify and correct these, but some could still be present. Please do not hesitate to contact practitioner for clarification. 07/11/2024 Gastroesophageal reflux disease without esophagitis (ICD-10 - K21.9) Pleasant 34-year-old female here for complete physical exam. # Patient needs a letter of support from us fax over to general surgical care and bariatric surgery at [phone]. Will fill it out and fax over. # Admits to right hip pain, worse than left but does admit to bilateral hip pain for the past 3 months, on and off. Questioning arthritis and is hoping for x-rays. Physical exam overall benign. No red flag symptoms. Declines any numbness, tingling or weakness. Has been exercising more to try to assist with weight loss.Will order x-rays of bilateral hips. Call with concern. Discussed conservative treatments in the meantime. #Has an appoint with cardiology in August after an abnormal EKG with bariatric surgeon. Will try to obtain records for this.Patient is unsure any further information. #Referring to [facility] for psoriasis. Also has rash of the scalp, for which ketoconazole shalom has worked in the past, will prescribe. #Diabetes Mellitus, PCOS: Patient discontinued IVF treatment. Patient currently takes Metformin 1000mg BID and Mounjaro 5mg. CBC on 02/18/2024 revealed glucose of 149 and HgbA1c of 7.5. HbgA1c in office 7.1. Most recent values June 2024 showing hemoglobin A1c 5.5, fasting sugars 111. Continuing Mounjaro 10 mg, decrease metformin to 500 mg twice daily, repeat labs in 6 months, and continue decreasing medication dose with continued improvement. #Hyperlipidemia: Patient restarted rosuvastatin 5mg. No acute concerns. Most recent labs in June 2024 within normal limits. No change to treatment at this time. #Hypothyroidism: Patient has not taken levothyroxine in 1-2 months. TSH on 02/18/2024 was 1.47. Patient wishes to discontinue levothyroxine completely. Will discontinue medication, Monitor levels in the future. No concern at this time. # Vitamin D deficiency: Continue vitamin D # GERD: Patient on omeprazole 40mg for acid reflux. Reports having no reflux since restarting medication. Educated patient on long terms effects including decreased bone density and reliance on the medication. Talked to patient about cutting dose to 20mg a day. Patient understands and will try. # Elevated liver enzymes: Has had a CT showing fatty liver disease and cholesterol in her gallbladder. Tirzepatide has been proven to help at this time, but working on lifestyle/weight loss as well declines red flag symptoms.Most recent liver enzymes have almost normalized. Continue to encourage weight loss. # Patient up-to-date on all screening test, up-to-date on the flu obtain Tdap today. Declines COVID. Healthcare proxy filled out today 07/11/2024. # PHQ-9 with a total score 9. Patient does admit to slight depression, declines suicidal ideation but continues to decline any further conversation. Offered/recommended therapy, psychiatry, supplements, or pharmaceutical medications which she declines. Did offer support. Patient follow-up in 6 months, will call with results of x-ray in the meantime. [facility] in the meantime as well. Patient seen and examined. Comprehensive discussion was done on the following. 1. Nutrition: It is important to follow a healthy diet based on lots of vegetables and legumes and good fat. Avoid processed food and processed carbohydrates. Prepare your own meals. Read labels and avoid high fructose corn syrup, processed chemicals added to increase shelf life and preprepared meals. Avoid fast foods. Eat slowly and plan meals for a week. Try to count calories and be mindful off daily calorie intake. Get into the habit of keeping an eye on your weight by using an appropriate scale. Learn to log exercise and discussed fitness Apps like [employer] which can help keep log off calories taken versus calories burned. Local food should be preferred. Discussed Dirty Dozen Versus Clean Fifteen. Discussed healthy supplements like fish oil, Tumeric, Curcumin, Melatonin, Resveratrol, Probiotics, Vitamin-D, Alpha-Lipoic acid, Vitamin-D and coconut oil. 2. It is important to exercise regularly. Is a good habit to walk at least 30 minutes a day. Gentle weightlifting with standard precautions to protect the back. Finding activity like cycling or hiking and get into the habit of engaging in it. Stretching before and after the exercises important. It is also important to contact me if there are any problems like shortness of breath, chest pain, back pain and joint or muscle pain associated with the exercise. 3. Discussed age appropriate screening guidelines. Colonoscopy needs to start at age 50 with stool for occult blood as appropriate. There is a new test that can test for genetic abnormalities in the stool sample, Cologuard. This would not replace a colonoscopy but could be used as a screening tool for patients who do not want a colonoscopy. We discussed the importance of early detection of colon cancer. 4. Discussed current guidelines with respect to breast examination, mammogram and pap smear for early detection of breast and cervical cancer. Patient advised to follow up with these appointments. 5. Discussed safe driving and no use of smart phone while driving 6. Age-appropriate immunizations were discussed. A tetanus booster is needed every 10 years. Flu vaccine is recommended every year just before the start of the flu season. Shingles vaccine is recommended after age 50 but not all insurances cover it. Pneumonia vaccine is given after age 65 unless there are certain comorbidities for which it is started earlier. 7. Diagnostic labs were discussed. These could include/not limited to CBC CMP and lipids with fasting blood glucose and insulin levels. Vitamin D and hemoglobin A1c testing might be appropriate. All quetsions answered to patients satisfaction. Patient verbalized understanding of diagnosis and treatments explained. To call sooner prior to next visit it any questions/concerns arise. Case discussed with collaborating physician Aramis Walton who reviewed the assessment and plan. Chart, medications, labs, vital signs reviewed. Dictation was accomplished with the use of [email or web address] voice recognition software, prone to medical misidentifications and grammatical errors. This is unintentional and the practitioner does try to identify and correct these, but some could still be present. Please do not hesitate to contact practitioner for clarification. 09/12/2024 Acute cough (ICD-10 - R05.1) # RSV Positive: Most likely RSV due to symptoms and exposure from who tested positive last week. Albuterol nebulizer and inhaler, guaifenesin w/ coedine, and Mucinex sent to pharmacy. Patient is aware that guaifenesin with codeine is considered a narcotic, and patient is to not drive or taking anything sedadtive. Informed the patient to not drive while on cough medicine. Advised patient to alternate ibuprofen and Tylenol. Advised her to use a humidifier, cough drops, and honey for sore throat. Emphasized the importance of hydration and rest. Informed patient cough may persist for 4-6 weeks. Case discussed with collaborating physician Radha Walton who reviewed the assessment and plan. Chart, medications, labs, vital signs reviewed. Dictation was accomplished with the use of [employer] voice recognition software, prone to medical misidentifications and grammatical errors. This is unintentional and the practitioner does try to identify and correct these, but some could still be present. Please do not hesitate to contact practitioner for clarification. All questions answered to patients satisfaction. Patient verbalized understanding of diagnosis and treatments explained. To call sooner prior to next visit it any questions/concerns arise. 12/25/2024 Infertility, female (ICD-10 - N97.9) # Patient had bariatric surgery with the gastric sleeve December 2024, doing really well. Last visit patient's weight 224, today 196. Taking B vitamins, still on pureed diet, following with a staff developer, and surgeon. Pleased with progress overall. Taking famotidine, Zofran as needed # Admits to right hip pain, worse than left but does admit to bilateral hip pain for the past 3 months, on and off. Questioning arthritis and is hoping for x-rays. Physical exam overall benign. No red flag symptoms. Declines any numbness, tingling or weakness. Has been exercising more to try to assist with weight loss. Patient followed with dermatology who diagnosed her with psoriatic arthritis, taking Otezla 30 mg twice daily with improvement in joint pain. #Referring to [facility] for psoriasis. Prescribed clobetasol and fluocinolone with improvement. Also prescribing Otezla for psoriatic arthritis. #Diabetes Mellitus, PCOS: Patient discontinued IVF treatment. Patient currently takes Metformin 1000mg BID and Mounjaro 5mg. CBC on 02/18/2024 revealed glucose of 149 and HgbA1c of 7.5. HbgA1c in office 7.1. Most recent values June 2024 showing hemoglobin A1c 5.5, fasting sugars 111. As of December 25, 2024, patient has discontinued metformin and Mounjaro as recommended by bariatric surgeon. She has been doing well, A1c in office December 25, 2024 5.1. #Hyperlipidemia: Patient restarted rosuvastatin 5mg. Has since discontinued by bariatric surgeon. Will repeat lipids and adjust as needed #Hypothyroidism: Patient has not taken levothyroxine in 1-2 months. TSH on 02/18/2024 was 1.47. Patient wishes to discontinue levothyroxine completely. Will discontinue medication, Ordering values for next visit. # Vitamin D deficiency: Continue vitamin D # GERD: Omeprazole discontinued, now taking famotidine 20 mg twice daily with improvement. # Elevated liver enzymes: Repeating values. # Patient up-to-date on all screening test She is interested in. Declines COVID. Healthcare proxy filled out 07/11/2024. # PHQ-9 with a total score 9. 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 Given information for [facility] Follow-up in July for complete physical, fasting labs prior, adjust treatment and medications as needed. All quetsions answered to patients satisfaction. Patient verbalized understanding of diagnosis and treatments explained. To call sooner prior to next visit it any questions/concerns arise. Case discussed with collaborating physician Aramis Walton who reviewed the assessment and plan. Chart, medications, labs, vital signs reviewed. Dictation was accomplished with the use of [employer] voice recognition software, prone to medical misidentifications and grammatical errors. This is unintentional and the practitioner does try to identify and correct these, but some could still be present. Please do not hesitate to contact practitioner for clarification. 12/25/2024 Seasonal allergies (ICD-10 - J30.2) # Patient had bariatric surgery with the gastric sleeve December 2024, doing really well. Last visit patient's weight 224, today 196. Taking B vitamins, still on pureed diet, following with a staff developer, and surgeon. Pleased with progress overall. Taking famotidine, Zofran as needed # Admits to right hip pain, worse than left but does admit to bilateral hip pain for the past 3 months, on and off. Questioning arthritis and is hoping for x-rays. Physical exam overall benign. No red flag symptoms. Declines any numbness, tingling or weakness. Has been exercising more to try to assist with weight loss. Patient followed with dermatology who diagnosed her with psoriatic arthritis, taking Otezla 30 mg twice daily with improvement in joint pain. #Referring to [facility] for psoriasis. Prescribed clobetasol and fluocinolone with improvement. Also prescribing Otezla for psoriatic arthritis. #Diabetes Mellitus, PCOS: Patient discontinued IVF treatment. Patient currently takes Metformin 1000mg BID and Mounjaro 5mg. CBC on 02/18/2024 revealed glucose of 149 and HgbA1c of 7.5. HbgA1c in office 7.1. Most recent values June 2024 showing hemoglobin A1c 5.5, fasting sugars 111. As of December 25, 2024, patient has discontinued metformin and Mounjaro as recommended by bariatric surgeon. She has been doing well, A1c in office December 25, 2024 5.1. #Hyperlipidemia: Patient restarted rosuvastatin 5mg. Has since discontinued by bariatric surgeon. Will repeat lipids and adjust as needed #Hypothyroidism: Patient has not taken levothyroxine in 1-2 months. TSH on 02/18/2024 was 1.47. Patient wishes to discontinue levothyroxine completely. Will discontinue medication, Ordering values for next visit. # Vitamin D deficiency: Continue vitamin D # GERD: Omeprazole discontinued, now taking famotidine 20 mg twice daily with improvement. # Elevated liver enzymes: Repeating values. # Patient up-to-date on all screening test She is interested in. Declines COVID. Healthcare proxy filled out 07/11/2024. # PHQ-9 with a total score 9. 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 Given information for [facility] Follow-up in July for complete physical, fasting labs prior, adjust treatment and medications as needed. All quetsions answered to patients satisfaction. Patient verbalized understanding of diagnosis and treatments explained. To call sooner prior to next visit it any questions/concerns arise. Case discussed with collaborating physician Aramis Walton who reviewed the assessment and plan. Chart, medications, labs, vital signs reviewed. Dictation was accomplished with the use of [employer] voice recognition software, prone to medical misidentifications and grammatical errors. This is unintentional and the practitioner does try to identify and correct these, but some could still be present. Please do not hesitate to contact practitioner for clarification. 07/11/2024 Mixed hyperlipidemia (ICD-10 - E78.2) Pleasant 34-year-old female here for complete physical exam. # Patient needs a letter of support from us fax over to general surgical care and bariatric surgery at [phone]. Will fill it out and fax over. # Admits to right hip pain, worse than left but does admit to bilateral hip pain for the past 3 months, on and off. Questioning arthritis and is hoping for x-rays. Physical exam overall benign. No red flag symptoms. Declines any numbness, tingling or weakness. Has been exercising more to try to assist with weight loss.Will order x-rays of bilateral hips. Call with concern. Discussed conservative treatments in the meantime. #Has an appoint with cardiology in August after an abnormal EKG with bariatric surgeon. Will try to obtain records for this.Patient is unsure any further information. #Referring to [facility] for psoriasis. Also has rash of the scalp, for which ketoconazole shampoo has worked in the past, will prescribe. #Diabetes Mellitus, PCOS: Patient discontinued IVF treatment. Patient currently takes Metformin 1000mg BID and Mounjaro 5mg. CBC on 02/18/2024 revealed glucose of 149 and HgbA1c of 7.5. HbgA1c in office 7.1. Most recent values June 2024 showing hemoglobin A1c 5.5, fasting sugars 111. Continuing Mounjaro 10 mg, decrease metformin to 500 mg twice daily, repeat labs in 6 months, and continue decreasing medication dose with continued improvement. #Hyperlipidemia: Patient restarted rosuvastatin 5mg. No acute concerns. Most recent labs in June 2024 within normal limits. No change to treatment at this time. #Hypothyroidism: Patient has not taken levothyroxine in 1-2 months. TSH on 02/18/2024 was 1.47. Patient wishes to discontinue levothyroxine completely. Will discontinue medication, Monitor levels in the future. No concern at this time. # Vitamin D deficiency: Continue vitamin D # GERD: Patient on omeprazole 40mg for acid reflux. Reports having no reflux since restarting medication. Educated patient on long terms effects including decreased bone density and reliance on the medication. Talked to patient about cutting dose to 20mg a day. Patient understands and will try. # Elevated liver enzymes: Has had a CT showing fatty liver disease and cholesterol in her gallbladder. Tirzepatide has been proven to help at this time, but working on lifestyle/weight loss as well declines red flag symptoms.Most recent liver enzymes have almost normalized. Continue to encourage weight loss. # Patient up-to-date on all screening test, up-to-date on the flu obtain Tdap today. Declines COVID. Healthcare proxy filled out today 07/11/2024. # PHQ-9 with a total score 9. Patient does admit to slight depression, declines suicidal ideation but continues to decline any further conversation. Offered/recommended therapy, psychiatry, supplements, or pharmaceutical medications which she declines. Did offer support. Patient follow-up in 6 months, will call with results of x-ray in the meantime. [facility] in the meantime as well. Patient seen and examined. Comprehensive discussion was done on the following. 1. Nutrition: It is important to follow a healthy diet based on lots of vegetables and legumes and good fat. Avoid processed food and processed carbohydrates. Prepare your own meals. Read labels and avoid high fructose corn syrup, processed chemicals added to increase shelf life and preprepared meals. Avoid fast foods. Eat slowly and plan meals for a week. Try to count calories and be mindful off daily calorie intake. Get into the habit of keeping an eye on your weight by using an appropriate scale. Learn to log exercise and discussed fitness Apps like [employer] which can help keep log off calories taken versus calories burned. Local food should be preferred. Discussed Dirty Dozen Versus Clean Fifteen. Discussed healthy supplements like fish oil, Tumeric, Curcumin, Melatonin, Resveratrol, Probiotics, Vitamin-D, Alpha-Lipoic acid, Vitamin-D and coconut oil. 2. It is important to exercise regularly. Is a good habit to walk at least 30 minutes a day. Gentle weightlifting with standard precautions to protect the back. Finding activity like cycling or hiking and get into the habit of engaging in it. Stretching before and after the exercises important. It is also important to contact me if there are any problems like shortness of breath, chest pain, back pain and joint or muscle pain associated with the exercise. 3. Discussed age appropriate screening guidelines. Colonoscopy needs to start at age 50 with stool for occult blood as appropriate. There is a new test that can test for genetic abnormalities in the stool sample, Cologuard. This would not replace a colonoscopy but could be used as a screening tool for patients who do not want a colonoscopy. We discussed the importance of early detection of colon cancer. 4. Discussed current guidelines with respect to breast examination, mammogram and pap smear for early detection of breast and cervical cancer. Patient advised to follow up with these appointments. 5. Discussed safe driving and no use of smart phone while driving 6. Age-appropriate immunizations were discussed. A tetanus booster is needed every 10 years. Flu vaccine is recommended every year just before the start of the flu season. Shingles vaccine is recommended after age 50 but not all insurances cover it. Pneumonia vaccine is given after age 65 unless there are certain comorbidities for which it is started earlier. 7. Diagnostic labs were discussed. These could include/not limited to CBC CMP and lipids with fasting blood glucose and insulin levels. Vitamin D and hemoglobin A1c testing might be appropriate. All quetsions answered to patients satisfaction. Patient verbalized understanding of diagnosis and treatments explained. To call sooner prior to next visit it any questions/concerns arise. Case discussed with collaborating physician Aramis Walton who reviewed the assessment and plan. Chart, medications, labs, vital signs reviewed. Dictation was accomplished with the use of [employer] voice recognition software, prone to medical misidentifications and grammatical errors. This is unintentional and the practitioner does try to identify and correct these, but some could still be present. Please do not hesitate to contact practitioner for clarification. 02/22/2024 Mixed hyperlipidemia (ICD-10 - E78.2) #Diabetes Mellitus, PCOS: Patient discontinued IVF treatment. Patient currently takes Metformin 1000mg BID and Mounjaro 5mg. CBC on 02/18/2024 revealed glucose of 149 and HgbA1c of 7.5. HbgA1c in office 7.1. She is using Dexcom. Morning sugars range from 140-180. Will continue metformin 1000mg BID and will increase Mounjaro to 7.5mg. Will repeat labs and review in 4 months. #Hyperlipidemia: Patient restarted rosuvastatin 5mg. No acute concerns. Labs on 02/18/2024 reveal total cholesterol 177, triglycerides 121, HDL 63, and LDL 93. Continue rosuvastatin 5mg. #Hypothyroidism: Patient has not taken levothyroxine in 1-2 months. TSH on 02/18/2024 was 1.47. Patient wishes to discontinue levothyroxine completely. Will discontinue medication and continue to monitor TSH levels. # Vitamin D deficiency: Continue vitamin D # GERD: Patient on omeprazole 40mg for acid reflux. Reports having no reflux since restarting medication. Educated patient on long terms effects including decreased bone density and reliance on the medication. Talked to patient about cutting dose to 20mg a day. Patient understands and will try. # Elevated liver enzymes: Has had a CT showing fatty liver disease and cholesterol in her gallbladder. Tirzepatide has been proven to help at this time, but working on lifestyle/weight loss as well declines red flag symptoms. Follow-up in 4 months for complete physical with labs, sooner as needed All quetsions answered to patients satisfaction. Patient verbalized understanding of diagnosis and treatments explained. To call sooner prior to next visit it any questions/concerns arise. Case discussed with collaborating physician Aramis Walton who reviewed the assessment and plan. Chart, medications, labs, vital signs reviewed. Dictation was accomplished with the use of [employer] voice recognition software, prone to medical misidentifications and grammatical errors. This is unintentional and the practitioner does try to identify and correct these, but some could still be present. Please do not hesitate to contact practitioner for clarification. 02/22/2024 Infertility, female (ICD-10 - N97.9) #Diabetes Mellitus, PCOS: Patient discontinued IVF treatment. Patient currently takes Metformin 1000mg BID and Mounjaro 5mg. CBC on 02/18/2024 revealed glucose of 149 and HgbA1c of 7.5. HbgA1c in office 7.1. She is using Dexcom. Morning sugars range from 140-180. Will continue metformin 1000mg BID and will increase Mounjaro to 7.5mg. Will repeat labs and review in 4 months. #Hyperlipidemia: Patient restarted rosuvastatin 5mg. No acute concerns. Labs on 02/18/2024 reveal total cholesterol 177, triglycerides 121, HDL 63, and LDL 93. Continue rosuvastatin 5mg. #Hypothyroidism: Patient has not taken levothyroxine in 1-2 months. TSH on 02/18/2024 was 1.47. Patient wishes to discontinue levothyroxine completely. Will discontinue medication and continue to monitor TSH levels. # Vitamin D deficiency: Continue vitamin D # GERD: Patient on omeprazole 40mg for acid reflux. Reports having no reflux since restarting medication. Educated patient on long terms effects including decreased bone density and reliance on the medication. Talked to patient about cutting dose to 20mg a day. Patient understands and will try. # Elevated liver enzymes: Has had a CT showing fatty liver disease and cholesterol in her gallbladder. Tirzepatide has been proven to help at this time, but working on lifestyle/weight loss as well declines red flag symptoms. Follow-up in 4 months for complete physical with labs, sooner as needed All quetsions answered to patients satisfaction. Patient verbalized understanding of diagnosis and treatments explained. To call sooner prior to next visit it any questions/concerns arise. Case discussed with collaborating physician Aramis Walton who reviewed the assessment and plan. Chart, medications, labs, vital signs reviewed. Dictation was accomplished with the use of [employer] voice recognition software, prone to medical misidentifications and grammatical errors. This is unintentional and the practitioner does try to identify and correct these, but some could still be present. Please do not hesitate to contact practitioner for clarification. 07/11/2024 Infertility, female (ICD-10 - N97.9) Pleasant 34-year-old female here for complete physical exam. # Patient needs a letter of support from us fax over to general surgical care and bariatric surgery at [phone]. Will fill it out and fax over. # Admits to right hip pain, worse than left but does admit to bilateral hip pain for the past 3 months, on and off. Questioning arthritis and is hoping for x-rays. Physical exam overall benign. No red flag symptoms. Declines any numbness, tingling or weakness. Has been exercising more to try to assist with weight loss.Will order x-rays of bilateral hips. Call with concern. Discussed conservative treatments in the meantime. #Has an appoint with cardiology in August after an abnormal EKG with bariatric surgeon. Will try to obtain records for this.Patient is unsure any further information. #Referring to [facility] for psoriasis. Also has rash of the scalp, for which ketoconazole shampoo has worked in the past, will prescribe. #Diabetes Mellitus, PCOS: Patient discontinued IVF treatment. Patient currently takes Metformin 1000mg BID and Mounjaro 5mg. CBC on 02/18/2024 revealed glucose of 149 and HgbA1c of 7.5. HbgA1c in office 7.1. Most recent values June 2024 showing hemoglobin A1c 5.5, fasting sugars 111. Continuing Mounjaro 10 mg, decrease metformin to 500 mg twice daily, repeat labs in 6 months, and continue decreasing medication dose with continued improvement. #Hyperlipidemia: Patient restarted rosuvastatin 5mg. No acute concerns. Most recent labs in June 2024 within normal limits. No change to treatment at this time. #Hypothyroidism: Patient has not taken levothyroxine in 1-2 months. TSH on 02/18/2024 was 1.47. Patient wishes to discontinue levothyroxine completely. Will discontinue medication, Monitor levels in the future. No concern at this time. # Vitamin D deficiency: Continue vitamin D # GERD: Patient on omeprazole 40mg for acid reflux. Reports having no reflux since restarting medication. Educated patient on long terms effects including decreased bone density and reliance on the medication. Talked to patient about cutting dose to 20mg a day. Patient understands and will try. # Elevated liver enzymes: Has had a CT showing fatty liver disease and cholesterol in her gallbladder. Tirzepatide has been proven to help at this time, but working on lifestyle/weight loss as well declines red flag symptoms.Most recent liver enzymes have almost normalized. Continue to encourage weight loss. # Patient up-to-date on all screening test, up-to-date on the flu obtain Tdap today. Declines COVID. Healthcare proxy filled out today 07/11/2024. # PHQ-9 with a total score 9. Patient does admit to slight depression, declines suicidal ideation but continues to decline any further conversation. Offered/recommended therapy, psychiatry, supplements, or pharmaceutical medications which she declines. Did offer support. Patient follow-up in 6 months, will call with results of x-ray in the meantime. [facility] in the meantime as well. Patient seen and examined. Comprehensive discussion was done on the following. 1. Nutrition: It is important to follow a healthy diet based on lots of vegetables and legumes and good fat. Avoid processed food and processed carbohydrates. Prepare your own meals. Read labels and avoid high fructose corn syrup, processed chemicals added to increase shelf life and preprepared meals. Avoid fast foods. Eat slowly and plan meals for a week. Try to count calories and be mindful off daily calorie intake. Get into the habit of keeping an eye on your weight by using an appropriate scale. Learn to log exercise and discussed fitness Apps like [employer] which can help keep log off calories taken versus calories burned. Local food should be preferred. Discussed Dirty [employer]zen Versus Clean Fifteen. Discussed healthy supplements like fish oil, Tumeric, Curcumin, Melatonin, Resveratrol, Probiotics, Vitamin-D, Alpha-Lipoic acid, Vitamin-D and coconut oil. 2. It is important to exercise regularly. Is a good habit to walk at least 30 minutes a day. Gentle weightlifting with standard precautions to protect the back. Finding activity like cycling or hiking and get into the habit of engaging in it. Stretching before and after the exercises important. It is also important to contact me if there are any problems like shortness of breath, chest pain, back pain and joint or muscle pain associated with the exercise. 3. Discussed age appropriate screening guidelines. Colonoscopy needs to start at age 50 with stool for occult blood as appropriate. There is a new test that can test for genetic abnormalities in the stool sample, Cologuard. This would not replace a colonoscopy but could be used as a screening tool for patients who do not want a colonoscopy. We discussed the importance of early detection of colon cancer. 4. Discussed current guidelines with respect to breast examination, mammogram and pap smear for early detection of breast and cervical cancer. Patient advised to follow up with these appointments. 5. Discussed safe driving and no use of smart phone while driving 6. Age-appropriate immunizations were discussed. A tetanus booster is needed every 10 years. Flu vaccine is recommended every year just before the start of the flu season. Shingles vaccine is recommended after age 50 but not all insurances cover it. Pneumonia vaccine is given after age 65 unless there are certain comorbidities for which it is started earlier. 7. Diagnostic labs were discussed. These could include/not limited to CBC CMP and lipids with fasting blood glucose and insulin levels. Vitamin D and hemoglobin A1c testing might be appropriate. All quetsions answered to patients satisfaction. Patient verbalized understanding of diagnosis and treatments explained. To call sooner prior to next visit it any questions/concerns arise. Case discussed with collaborating physician Aramis Walton who reviewed the assessment and plan. Chart, medications, labs, vital signs reviewed. Dictation was accomplished with the use of [employer] voice recognition software, prone to medical misidentifications and grammatical errors. This is unintentional and the practitioner does try to identify and correct these, but some could still be present. Please do not hesitate to contact practitioner for clarification. 12/25/2024 Pain in right hip (ICD-10 - M25.551) # Patient had bariatric surgery with the gastric sleeve December 2024, doing really well. Last visit patient's weight 224, today 196. Taking B vitamins, still on pureed diet, following with a staff developer, and surgeon. Pleased with progress overall. Taking famotidine, Zofran as needed # Admits to right hip pain, worse than left but does admit to bilateral hip pain for the past 3 months, on and off. Questioning arthritis and is hoping for x-rays. Physical exam overall benign. No red flag symptoms. Declines any numbness, tingling or weakness. Has been exercising more to try to assist with weight loss. Patient followed with dermatology who diagnosed her with psoriatic arthritis, taking Otezla 30 mg twice daily with improvement in joint pain. #Referring to [facility] for psoriasis. Prescribed clobetasol and fluocinolone with improvement. Also prescribing Otezla for psoriatic arthritis. #Diabetes Mellitus, PCOS: Patient discontinued IVF treatment. Patient currently takes Metformin 1000mg BID and Mounjaro 5mg. CBC on 02/18/2024 revealed glucose of 149 and HgbA1c of 7.5. HbgA1c in office 7.1. Most recent values June 2024 showing hemoglobin A1c 5.5, fasting sugars 111. As of December 25, 2024, patient has discontinued metformin and Mounjaro as recommended by bariatric surgeon. She has been doing well, A1c in office December 25, 2024 5.1. #Hyperlipidemia: Patient restarted rosuvastatin 5mg. Has since discontinued by bariatric surgeon. Will repeat lipids and adjust as needed #Hypothyroidism: Patient has not taken levothyroxine in 1-2 months. TSH on 02/18/2024 was 1.47. Patient wishes to discontinue levothyroxine completely. Will discontinue medication, Ordering values for next visit. # Vitamin D deficiency: Continue vitamin D # GERD: Omeprazole discontinued, now taking famotidine 20 mg twice daily with improvement. # Elevated liver enzymes: Repeating values. # Patient up-to-date on all screening test She is interested in. Declines COVID. Healthcare proxy filled out 07/11/2024. # PHQ-9 with a total score 9. 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 Given information for [facility] Follow-up in July for complete physical, fasting labs prior, adjust treatment and medications as needed. All quetsions answered to patients satisfaction. Patient verbalized understanding of diagnosis and treatments explained. To call sooner prior to next visit it any questions/concerns arise. Case discussed with collaborating physician Aramis Walton who reviewed the assessment and plan. Chart, medications, labs, vital signs reviewed. Dictation was accomplished with the use of [employer] voice recognition software, prone to medical misidentifications and grammatical errors. This is unintentional and the practitioner does try to identify and correct these, but some could still be present. Please do not hesitate to contact practitioner for clarification. 12/25/2024 Pain in left hip (ICD-10 - M25.552) # Patient had bariatric surgery with the gastric sleeve December 2024, doing really well. Last visit patient's weight 224, today 196. Taking B vitamins, still on pureed diet, following with a staff developer, and surgeon. Pleased with progress overall. Taking famotidine, Zofran as needed # Admits to right hip pain, worse than left but does admit to bilateral hip pain for the past 3 months, on and off. Questioning arthritis and is hoping for x-rays. Physical exam overall benign. No red flag symptoms. Declines any numbness, tingling or weakness. Has been exercising more to try to assist with weight loss. Patient followed with dermatology who diagnosed her with psoriatic arthritis, taking Otezla 30 mg twice daily with improvement in joint pain. #Referring to [facility] for psoriasis. Prescribed clobetasol and fluocinolone with improvement. Also prescribing Otezla for psoriatic arthritis. #Diabetes Mellitus, PCOS: Patient discontinued IVF treatment. Patient currently takes Metformin 1000mg BID and Mounjaro 5mg. CBC on 02/18/2024 revealed glucose of 149 and HgbA1c of 7.5. HbgA1c in office 7.1. Most recent values June 2024 showing hemoglobin A1c 5.5, fasting sugars 111. As of December 25, 2024, patient has discontinued metformin and Mounjaro as recommended by bariatric surgeon. She has been doing well, A1c in office December 25, 2024 5.1. #Hyperlipidemia: Patient restarted rosuvastatin 5mg. Has since discontinued by bariatric surgeon. Will repeat lipids and adjust as needed #Hypothyroidism: Patient has not taken levothyroxine in 1-2 months. TSH on 02/18/2024 was 1.47. Patient wishes to discontinue levothyroxine completely. Will discontinue medication, Ordering values for next visit. # Vitamin D deficiency: Continue vitamin D # GERD: Omeprazole discontinued, now taking famotidine 20 mg twice daily with improvement. # Elevated liver enzymes: Repeating values. # Patient up-to-date on all screening test She is interested in. Declines COVID. Healthcare proxy filled out 07/11/2024. # PHQ-9 with a total score 9. 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 Given information for [facility] Follow-up in July for complete physical, fasting labs prior, adjust treatment and medications as needed. All quetsions answered to patients satisfaction. Patient verbalized understanding of diagnosis and treatments explained. To call sooner prior to next visit it any questions/concerns arise. Case discussed with collaborating physician Aramis Walton who reviewed the assessment and plan. Chart, medications, labs, vital signs reviewed. Dictation was accomplished with the use of [employer] voice recognition software, prone to medical misidentifications and grammatical errors. This is unintentional and the practitioner does try to identify and correct these, but some could still be present. Please do not hesitate to contact practitioner for clarification. 07/11/2024 Seasonal allergies (ICD-10 - J30.2) Pleasant 34-year-old female here for complete physical exam. # Patient needs a letter of support from us fax over to general surgical care and bariatric surgery at [phone]. Will fill it out and fax over. # Admits to right hip pain, worse than left but does admit to bilateral hip pain for the past 3 months, on and off. Questioning arthritis and is hoping for x-rays. Physical exam overall benign. No red flag symptoms. Declines any numbness, tingling or weakness. Has been exercising more to try to assist with weight loss.Will order x-rays of bilateral hips. Call with concern. Discussed conservative treatments in the meantime. #Has an appoint with cardiology in August after an abnormal EKG with bariatric surgeon. Will try to obtain records for this.Patient is unsure any further information. #Referring to [facility] for psoriasis. Also has rash of the scalp, for which ketoconazole shampoo has worked in the past, will prescribe. #Diabetes Mellitus, PCOS: Patient discontinued IVF treatment. Patient currently takes Metformin 1000mg BID and Mounjaro 5mg. CBC on 02/18/2024 revealed glucose of 149 and HgbA1c of 7.5. HbgA1c in office 7.1. Most recent values June 2024 showing hemoglobin A1c 5.5, fasting sugars 111. Continuing Mounjaro 10 mg, decrease metformin to 500 mg twice daily, repeat labs in 6 months, and continue decreasing medication dose with continued improvement. #Hyperlipidemia: Patient restarted rosuvastatin 5mg. No acute concerns. Most recent labs in June 2024 within normal limits. No change to treatment at this time. #Hypothyroidism: Patient has not taken levothyroxine in 1-2 months. TSH on 02/18/2024 was 1.47. Patient wishes to discontinue levothyroxine completely. Will discontinue medication, Monitor levels in the future. No concern at this time. # Vitamin D deficiency: Continue vitamin D # GERD: Patient on omeprazole 40mg for acid reflux. Reports having no reflux since restarting medication. Educated patient on long terms effects including decreased bone density and reliance on the medication. Talked to patient about cutting dose to 20mg a day. Patient understands and will try. # Elevated liver enzymes: Has had a CT showing fatty liver disease and cholesterol in her gallbladder. Tirzepatide has been proven to help at this time, but working on lifestyle/weight loss as well declines red flag symptoms.Most recent liver enzymes have almost normalized. Continue to encourage weight loss. # Patient up-to-date on all screening test, up-to-date on the flu obtain Tdap today. Declines COVID. Healthcare proxy filled out today 07/11/2024. # PHQ-9 with a total score 9. Patient does admit to slight depression, declines suicidal ideation but continues to decline any further conversation. Offered/recommended therapy, psychiatry, supplements, or pharmaceutical medications which she declines. Did offer support. Patient follow-up in 6 months, will call with results of x-ray in the meantime. [facility] in the meantime as well. Patient seen and examined. Comprehensive discussion was done on the following. 1. Nutrition: It is important to follow a healthy diet based on lots of vegetables and legumes and good fat. Avoid processed food and processed carbohydrates. Prepare your own meals. Read labels and avoid high fructose corn syrup, processed chemicals added to increase shelf life and preprepared meals. Avoid fast foods. Eat slowly and plan meals for a week. Try to count calories and be mindful off daily calorie intake. Get into the habit of keeping an eye on your weight by using an appropriate scale. Learn to log exercise and discussed fitness Apps like [employer] which can help keep log off calories taken versus calories burned. Local food should be preferred. Discussed Dirty Dozen Versus Clean Fifteen. Discussed healthy supplements like fish oil, Tumeric, Curcumin, Melatonin, Resveratrol, Probiotics, Vitamin-D, Alpha-Lipoic acid, Vitamin-D and coconut oil. 2. It is important to exercise regularly. Is a good habit to walk at least 30 minutes a day. Gentle weightlifting with standard precautions to protect the back. Finding activity like cycling or hiking and get into the habit of engaging in it. Stretching before and after the exercises important. It is also important to contact me if there are any problems like shortness of breath, chest pain, back pain and joint or muscle pain associated with the exercise. 3. Discussed age appropriate screening guidelines. Colonoscopy needs to start at age 50 with stool for occult blood as appropriate. There is a new test that can test for genetic abnormalities in the stool sample, Cologuard. This would not replace a colonoscopy but could be used as a screening tool for patients who do not want a colonoscopy. We discussed the importance of early detection of colon cancer. 4. Discussed current guidelines with respect to breast examination, mammogram and pap smear for early detection of breast and cervical cancer. Patient advised to follow up with these appointments. 5. Discussed safe driving and no use of smart phone while driving 6. Age-appropriate immunizations were discussed. A tetanus booster is needed every 10 years. Flu vaccine is recommended every year just before the start of the flu season. Shingles vaccine is recommended after age 50 but not all insurances cover it. Pneumonia vaccine is given after age 65 unless there are certain comorbidities for which it is started earlier. 7. Diagnostic labs were discussed. These could include/not limited to CBC CMP and lipids with fasting blood glucose and insulin levels. Vitamin D and hemoglobin A1c testing might be appropriate. All quetsions answered to patients satisfaction. Patient verbalized understanding of diagnosis and treatments explained. To call sooner prior to next visit it any questions/concerns arise. Case discussed with collaborating physician Aramis Walton who reviewed the assessment and plan. Chart, medications, labs, vital signs reviewed. Dictation was accomplished with the use of [employer] voice recognition software, prone to medical misidentifications and grammatical errors. This is unintentional and the practitioner does try to identify and correct these, but some could still be present. Please do not hesitate to contact practitioner for clarification. 02/22/2024 Seasonal allergies (ICD-10 - J30.2) #Diabetes Mellitus, PCOS: Patient discontinued IVF treatment. Patient currently takes Metformin 1000mg BID and Mounjaro 5mg. CBC on 02/18/2024 revealed glucose of 149 and HgbA1c of 7.5. HbgA1c in office 7.1. She is using Dexcom. Morning sugars range from 140-180. Will continue metformin 1000mg BID and will increase Mounjaro to 7.5mg. Will repeat labs and review in 4 months. #Hyperlipidemia: Patient restarted rosuvastatin 5mg. No acute concerns. Labs on 02/18/2024 reveal total cholesterol 177, triglycerides 121, HDL 63, and LDL 93. Continue rosuvastatin 5mg. #Hypothyroidism: Patient has not taken levothyroxine in 1-2 months. TSH on 02/18/2024 was 1.47. Patient wishes to discontinue levothyroxine completely. Will discontinue medication and continue to monitor TSH levels. # Vitamin D deficiency: Continue vitamin D # GERD: Patient on omeprazole 40mg for acid reflux. Reports having no reflux since restarting medication. Educated patient on long terms effects including decreased bone density and reliance on the medication. Talked to patient about cutting dose to 20mg a day. Patient understands and will try. # Elevated liver enzymes: Has had a CT showing fatty liver disease and cholesterol in her gallbladder. Tirzepatide has been proven to help at this time, but working on lifestyle/weight loss as well declines red flag symptoms. Follow-up in 4 months for complete physical with labs, sooner as needed All quetsions answered to patients satisfaction. Patient verbalized understanding of diagnosis and treatments explained. To call sooner prior to next visit it any questions/concerns arise. Case discussed with collaborating physician Aramis Walton who reviewed the assessment and plan. Chart, medications, labs, vital signs reviewed. Dictation was accomplished with the use of [employer] voice recognition software, prone to medical misidentifications and grammatical errors. This is unintentional and the practitioner does try to identify and correct these, but some could still be present. Please do not hesitate to contact practitioner for clarification. 02/22/2024 Acquired hypothyroidism (ICD-10 - E03.9) #Diabetes Mellitus, PCOS: Patient discontinued IVF treatment. Patient currently takes Metformin 1000mg BID and Mounjaro 5mg. CBC on 02/18/2024 revealed glucose of 149 and HgbA1c of 7.5. HbgA1c in office 7.1. She is using Dexcom. Morning sugars range from 140-180. Will continue metformin 1000mg BID and will increase Mounjaro to 7.5mg. Will repeat labs and review in 4 months. #Hyperlipidemia: Patient restarted rosuvastatin 5mg. No acute concerns. Labs on 02/18/2024 reveal total cholesterol 177, triglycerides 121, HDL 63, and LDL 93. Continue rosuvastatin 5mg. #Hypothyroidism: Patient has not taken levothyroxine in 1-2 months. TSH on 02/18/2024 was 1.47. Patient wishes to discontinue levothyroxine completely. Will discontinue medication and continue to monitor TSH levels. # Vitamin D deficiency: Continue vitamin D # GERD: Patient on omeprazole 40mg for acid reflux. Reports having no reflux since restarting medication. Educated patient on long terms effects including decreased bone density and reliance on the medication. Talked to patient about cutting dose to 20mg a day. Patient understands and will try. # Elevated liver enzymes: Has had a CT showing fatty liver disease and cholesterol in her gallbladder. Tirzepatide has been proven to help at this time, but working on lifestyle/weight loss as well declines red flag symptoms. Follow-up in 4 months for complete physical with labs, sooner as needed All quetsions answered to patients satisfaction. Patient verbalized understanding of diagnosis and treatments explained. To call sooner prior to next visit it any questions/concerns arise. Case discussed with collaborating physician Aramis Walton who reviewed the assessment and plan. Chart, medications, labs, vital signs reviewed. Dictation was accomplished with the use of [employer] voice recognition software, prone to medical misidentifications and grammatical errors. This is unintentional and the practitioner does try to identify and correct these, but some could still be present. Please do not hesitate to contact practitioner for clarification. 07/11/2024 Encounter for immunization (ICD-10 - Z23) Pleasant 34-year-old female here for complete physical exam. # Patient needs a letter of support from us fax over to general surgical care and bariatric surgery at [phone]. Will fill it out and fax over. # Admits to right hip pain, worse than left but does admit to bilateral hip pain for the past 3 months, on and off. Questioning arthritis and is hoping for x-rays. Physical exam overall benign. No red flag symptoms. Declines any numbness, tingling or weakness. Has been exercising more to try to assist with weight loss.Will order x-rays of bilateral hips. Call with concern. Discussed conservative treatments in the meantime. #Has an appoint with cardiology in August after an abnormal EKG with bariatric surgeon. Will try to obtain records for this.Patient is unsure any further information. #Referring to [facility] for psoriasis. Also has rash of the scalp, for which ketoconazole shampoo has worked in the past, will prescribe. #Diabetes Mellitus, PCOS: Patient discontinued IVF treatment. Patient currently takes Metformin 1000mg BID and Mounjaro 5mg. CBC on 02/18/2024 revealed glucose of 149 and HgbA1c of 7.5. HbgA1c in office 7.1. Most recent values June 2024 showing hemoglobin A1c 5.5, fasting sugars 111. Continuing Mounjaro 10 mg, decrease metformin to 500 mg twice daily, repeat labs in 6 months, and continue decreasing medication dose with continued improvement. #Hyperlipidemia: Patient restarted rosuvastatin 5mg. No acute concerns. Most recent labs in June 2024 within normal limits. No change to treatment at this time. #Hypothyroidism: Patient has not taken levothyroxine in 1-2 months. TSH on 02/18/2024 was 1.47. Patient wishes to discontinue levothyroxine completely. Will discontinue medication, Monitor levels in the future. No concern at this time. # Vitamin D deficiency: Continue vitamin D # GERD: Patient on omeprazole 40mg for acid reflux. Reports having no reflux since restarting medication. Educated patient on long terms effects including decreased bone density and reliance on the medication. Talked to patient about cutting dose to 20mg a day. Patient understands and will try. # Elevated liver enzymes: Has had a CT showing fatty liver disease and cholesterol in her gallbladder. Tirzepatide has been proven to help at this time, but working on lifestyle/weight loss as well declines red flag symptoms.Most recent liver enzymes have almost normalized. Continue to encourage weight loss. # Patient up-to-date on all screening test, up-to-date on the flu obtain Tdap today. Declines COVID. Healthcare proxy filled out today 07/11/2024. # PHQ-9 with a total score 9. Patient does admit to slight depression, declines suicidal ideation but continues to decline any further conversation. Offered/recommended therapy, psychiatry, supplements, or pharmaceutical medications which she declines. Did offer support. Patient follow-up in 6 months, will call with results of x-ray in the meantime. [facility] in the meantime as well. Patient seen and examined. Comprehensive discussion was done on the following. 1. Nutrition: It is important to follow a healthy diet based on lots of vegetables and legumes and good fat. Avoid processed food and processed carbohydrates. Prepare your own meals. Read labels and avoid high fructose corn syrup, processed chemicals added to increase shelf life and preprepared meals. Avoid fast foods. Eat slowly and plan meals for a week. Try to count calories and be mindful off daily calorie intake. Get into the habit of keeping an eye on your weight by using an appropriate scale. Learn to log exercise and discussed fitness Apps like [employer] which can help keep log off calories taken versus calories burned. Local food should be preferred. Discussed Dirty [employer]zen Versus Clean Fifteen. Discussed healthy supplements like fish oil, Tumeric, Curcumin, Melatonin, Resveratrol, Probiotics, Vitamin-D, Alpha-Lipoic acid, Vitamin-D and coconut oil. 2. It is important to exercise regularly. Is a good habit to walk at least 30 minutes a day. Gentle weightlifting with standard precautions to protect the back. Finding activity like cycling or hiking and get into the habit of engaging in it. Stretching before and after the exercises important. It is also important to contact me if there are any problems like shortness of breath, chest pain, back pain and joint or muscle pain associated with the exercise. 3. Discussed age appropriate screening guidelines. Colonoscopy needs to start at age 50 with stool for occult blood as appropriate. There is a new test that can test for genetic abnormalities in the stool sample, Cologuard. This would not replace a colonoscopy but could be used as a screening tool for patients who do not want a colonoscopy. We discussed the importance of early detection of colon cancer. 4. Discussed current guidelines with respect to breast examination, mammogram and pap smear for early detection of breast and cervical cancer. Patient advised to follow up with these appointments. 5. Discussed safe driving and no use of smart phone while driving 6. Age-appropriate immunizations were discussed. A tetanus booster is needed every 10 years. Flu vaccine is recommended every year just before the start of the flu season. Shingles vaccine is recommended after age 50 but not all insurances cover it. Pneumonia vaccine is given after age 65 unless there are certain comorbidities for which it is started earlier. 7. Diagnostic labs were discussed. These could include/not limited to CBC CMP and lipids with fasting blood glucose and insulin levels. Vitamin D and hemoglobin A1c testing might be appropriate. All quetsions answered to patients satisfaction. Patient verbalized understanding of diagnosis and treatments explained. To call sooner prior to next visit it any questions/concerns arise. Case discussed with collaborating physician Aramis Walton who reviewed the assessment and plan. Chart, medications, labs, vital signs reviewed. Dictation was accomplished with the use of [employer] voice recognition software, prone to medical misidentifications and grammatical errors. This is unintentional and the practitioner does try to identify and correct these, but some could still be present. Please do not hesitate to contact practitioner for clarification. 12/25/2024 Difficulty concentrating (ICD-10 - R41.840) # Patient had bariatric surgery with the gastric sleeve December 2024, doing really well. Last visit patient's weight 224, today 196. Taking B vitamins, still on pureed diet, following with a staff developer, and surgeon. Pleased with progress overall. Taking famotidine, Zofran as needed # Admits to right hip pain, worse than left but does admit to bilateral hip pain for the past 3 months, on and off. Questioning arthritis and is hoping for x-rays. Physical exam overall benign. No red flag symptoms. Declines any numbness, tingling or weakness. Has been exercising more to try to assist with weight loss. Patient followed with dermatology who diagnosed her with psoriatic arthritis, taking Otezla 30 mg twice daily with improvement in joint pain. #Referring to [facility] for psoriasis. Prescribed clobetasol and fluocinolone with improvement. Also prescribing Otezla for psoriatic arthritis. #Diabetes Mellitus, PCOS: Patient discontinued IVF treatment. Patient currently takes Metformin 1000mg BID and Mounjaro 5mg. CBC on 02/18/2024 revealed glucose of 149 and HgbA1c of 7.5. HbgA1c in office 7.1. Most recent values June 2024 showing hemoglobin A1c 5.5, fasting sugars 111. As of December 25, 2024, patient has discontinued metformin and Mounjaro as recommended by bariatric surgeon. She has been doing well, A1c in office December 25, 2024 5.1. #Hyperlipidemia: Patient restarted rosuvastatin 5mg. Has since discontinued by bariatric surgeon. Will repeat lipids and adjust as needed #Hypothyroidism: Patient has not taken levothyroxine in 1-2 months. TSH on 02/18/2024 was 1.47. Patient wishes to discontinue levothyroxine completely. Will discontinue medication, Ordering values for next visit. # Vitamin D deficiency: Continue vitamin D # GERD: Omeprazole discontinued, now taking famotidine 20 mg twice daily with improvement. # Elevated liver enzymes: Repeating values. # Patient up-to-date on all screening test She is interested in. Declines COVID. Healthcare proxy filled out 07/11/2024. # PHQ-9 with a total score 9. 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 Given information for [facility] Follow-up in July for complete physical, fasting labs prior, adjust treatment and medications as needed. All quetsions answered to patients satisfaction. Patient verbalized understanding of diagnosis and treatments explained. To call sooner prior to next visit it any questions/concerns arise. Case discussed with collaborating physician Aramis Walton who reviewed the assessment and plan. Chart, medications, labs, vital signs reviewed. Dictation was accomplished with the use of [employer] voice recognition software, prone to medical misidentifications and grammatical errors. This is unintentional and the practitioner does try to identify and correct these, but some could still be present. Please do not hesitate to contact practitioner for clarification. 12/25/2024 Hyperglycemia (ICD-10 - R73.9) # Patient had bariatric surgery with the gastric sleeve December 2024, doing really well. Last visit patient's weight 224, today 196. Taking B vitamins, still on pureed diet, following with a staff developer, and surgeon. Pleased with progress overall. Taking famotidine, Zofran as needed # Admits to right hip pain, worse than left but does admit to bilateral hip pain for the past 3 months, on and off. Questioning arthritis and is hoping for x-rays. Physical exam overall benign. No red flag symptoms. Declines any numbness, tingling or weakness. Has been exercising more to try to assist with weight loss. Patient followed with dermatology who diagnosed her with psoriatic arthritis, taking Otezla 30 mg twice daily with improvement in joint pain. #Referring to [facility] for psoriasis. Prescribed clobetasol and fluocinolone with improvement. Also prescribing Otezla for psoriatic arthritis. #Diabetes Mellitus, PCOS: Patient discontinued IVF treatment. Patient currently takes Metformin 1000mg BID and Mounjaro 5mg. CBC on 02/18/2024 revealed glucose of 149 and HgbA1c of 7.5. HbgA1c in office 7.1. Most recent values June 2024 showing hemoglobin A1c 5.5, fasting sugars 111. As of December 25, 2024, patient has discontinued metformin and Mounjaro as recommended by bariatric surgeon. She has been doing well, A1c in office December 25, 2024 5.1. #Hyperlipidemia: Patient restarted rosuvastatin 5mg. Has since discontinued by bariatric surgeon. Will repeat lipids and adjust as needed #Hypothyroidism: Patient has not taken levothyroxine in 1-2 months. TSH on 02/18/2024 was 1.47. Patient wishes to discontinue levothyroxine completely. Will discontinue medication, Ordering values for next visit. # Vitamin D deficiency: Continue vitamin D # GERD: Omeprazole discontinued, now taking famotidine 20 mg twice daily with improvement. # Elevated liver enzymes: Repeating values. # Patient up-to-date on all screening test She is interested in. Declines COVID. Healthcare proxy filled out 07/11/2024. # PHQ-9 with a total score 9. 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 Given information for [facility] Follow-up in July for complete physical, fasting labs prior, adjust treatment and medications as needed. All quetsions answered to patients satisfaction. Patient verbalized understanding of diagnosis and treatments explained. To call sooner prior to next visit it any questions/concerns arise. Case discussed with collaborating physician Aramis Walton who reviewed the assessment and plan. Chart, medications, labs, vital signs reviewed. Dictation was accomplished with the use of [employer] voice recognition software, prone to medical misidentifications and grammatical errors. This is unintentional and the practitioner does try to identify and correct these, but some could still be present. Please do not hesitate to contact practitioner for clarification. 07/11/2024 Pain in right hip (ICD-10 - M25.551) Pleasant 34-year-old female here for complete physical exam. # Patient needs a letter of support from us fax over to general surgical care and bariatric surgery at [phone]. Will fill it out and fax over. # Admits to right hip pain, worse than left but does admit to bilateral hip pain for the past 3 months, on and off. Questioning arthritis and is hoping for x-rays. Physical exam overall benign. No red flag symptoms. Declines any numbness, tingling or weakness. Has been exercising more to try to assist with weight loss.Will order x-rays of bilateral hips. Call with concern. Discussed conservative treatments in the meantime. #Has an appoint with cardiology in August after an abnormal EKG with bariatric surgeon. Will try to obtain records for this.Patient is unsure any further information. #Referring to [facility] for psoriasis. Also has rash of the scalp, for which ketoconazole shampoo has worked in the past, will prescribe. #Diabetes Mellitus, PCOS: Patient discontinued IVF treatment. Patient currently takes Metformin 1000mg BID and Mounjaro 5mg. CBC on 02/18/2024 revealed glucose of 149 and HgbA1c of 7.5. HbgA1c in office 7.1. Most recent values June 2024 showing hemoglobin A1c 5.5, fasting sugars 111. Continuing Mounjaro 10 mg, decrease metformin to 500 mg twice daily, repeat labs in 6 months, and continue decreasing medication dose with continued improvement. #Hyperlipidemia: Patient restarted rosuvastatin 5mg. No acute concerns. Most recent labs in June 2024 within normal limits. No change to treatment at this time. #Hypothyroidism: Patient has not taken levothyroxine in 1-2 months. TSH on 02/18/2024 was 1.47. Patient wishes to discontinue levothyroxine completely. Will discontinue medication, Monitor levels in the future. No concern at this time. # Vitamin D deficiency: Continue vitamin D # GERD: Patient on omeprazole 40mg for acid reflux. Reports having no reflux since restarting medication. Educated patient on long terms effects including decreased bone density and reliance on the medication. Talked to patient about cutting dose to 20mg a day. Patient understands and will try. # Elevated liver enzymes: Has had a CT showing fatty liver disease and cholesterol in her gallbladder. Tirzepatide has been proven to help at this time, but working on lifestyle/weight loss as well declines red flag symptoms.Most recent liver enzymes have almost normalized. Continue to encourage weight loss. # Patient up-to-date on all screening test, up-to-date on the flu obtain Tdap today. Declines COVID. Healthcare proxy filled out today 07/11/2024. # PHQ-9 with a total score 9. Patient does admit to slight depression, declines suicidal ideation but continues to decline any further conversation. Offered/recommended therapy, psychiatry, supplements, or pharmaceutical medications which she declines. Did offer support. Patient follow-up in 6 months, will call with results of x-ray in the meantime. [facility] in the meantime as well. Patient seen and examined. Comprehensive discussion was done on the following. 1. Nutrition: It is important to follow a healthy diet based on lots of vegetables and legumes and good fat. Avoid processed food and processed carbohydrates. Prepare your own meals. Read labels and avoid high fructose corn syrup, processed chemicals added to increase shelf life and preprepared meals. Avoid fast foods. Eat slowly and plan meals for a week. Try to count calories and be mindful off daily calorie intake. Get into the habit of keeping an eye on your weight by using an appropriate scale. Learn to log exercise and discussed fitness Apps like [employer] which can help keep log off calories taken versus calories burned. Local food should be preferred. Discussed Dirty Dozen Versus Clean Fifteen. Discussed healthy supplements like fish oil, Tumeric, Curcumin, Melatonin, Resveratrol, Probiotics, Vitamin-D, Alpha-Lipoic acid, Vitamin-D and coconut oil. 2. It is important to exercise regularly. Is a good habit to walk at least 30 minutes a day. Gentle weightlifting with standard precautions to protect the back. Finding activity like cycling or hiking and get into the habit of engaging in it. Stretching before and after the exercises important. It is also important to contact me if there are any problems like shortness of breath, chest pain, back pain and joint or muscle pain associated with the exercise. 3. Discussed age appropriate screening guidelines. Colonoscopy needs to start at age 50 with stool for occult blood as appropriate. There is a new test that can test for genetic abnormalities in the stool sample, Cologuard. This would not replace a colonoscopy but could be used as a screening tool for patients who do not want a colonoscopy. We discussed the importance of early detection of colon cancer. 4. Discussed current guidelines with respect to breast examination, mammogram and pap smear for early detection of breast and cervical cancer. Patient advised to follow up with these appointments. 5. Discussed safe driving and no use of smart phone while driving 6. Age-appropriate immunizations were discussed. A tetanus booster is needed every 10 years. Flu vaccine is recommended every year just before the start of the flu season. Shingles vaccine is recommended after age 50 but not all insurances cover it. Pneumonia vaccine is given after age 65 unless there are certain comorbidities for which it is started earlier. 7. Diagnostic labs were discussed. These could include/not limited to CBC CMP and lipids with fasting blood glucose and insulin levels. Vitamin D and hemoglobin A1c testing might be appropriate. All quetsions answered to patients satisfaction. Patient verbalized understanding of diagnosis and treatments explained. To call sooner prior to next visit it any questions/concerns arise. Case discussed with collaborating physician Aramis Walton who reviewed the assessment and plan. Chart, medications, labs, vital signs reviewed. Dictation was accomplished with the use of [employer] voice recognition software, prone to medical misidentifications and grammatical errors. This is unintentional and the practitioner does try to identify and correct these, but some could still be present. Please do not hesitate to contact practitioner for clarification. 02/22/2024 Elevated liver enzymes (ICD-10 - R74.8) #Diabetes Mellitus, PCOS: Patient discontinued IVF treatment. Patient currently takes Metformin 1000mg BID and Mounjaro 5mg. CBC on 02/18/2024 revealed glucose of 149 and HgbA1c of 7.5. HbgA1c in office 7.1. She is using Dexcom. Morning sugars range from 140-180. Will continue metformin 1000mg BID and will increase Mounjaro to 7.5mg. Will repeat labs and review in 4 months. #Hyperlipidemia: Patient restarted rosuvastatin 5mg. No acute concerns. Labs on 02/18/2024 reveal total cholesterol 177, triglycerides 121, HDL 63, and LDL 93. Continue rosuvastatin 5mg. #Hypothyroidism: Patient has not taken levothyroxine in 1-2 months. TSH on 02/18/2024 was 1.47. Patient wishes to discontinue levothyroxine completely. Will discontinue medication and continue to monitor TSH levels. # Vitamin D deficiency: Continue vitamin D # GERD: Patient on omeprazole 40mg for acid reflux. Reports having no reflux since restarting medication. Educated patient on long terms effects including decreased bone density and reliance on the medication. Talked to patient about cutting dose to 20mg a day. Patient understands and will try. # Elevated liver enzymes: Has had a CT showing fatty liver disease and cholesterol in her gallbladder. Tirzepatide has been proven to help at this time, but working on lifestyle/weight loss as well declines red flag symptoms. Follow-up in 4 months for complete physical with labs, sooner as needed All quetsions answered to patients satisfaction. Patient verbalized understanding of diagnosis and treatments explained. To call sooner prior to next visit it any questions/concerns arise. Case discussed with collaborating physician Aramis Walton who reviewed the assessment and plan. Chart, medications, labs, vital signs reviewed. Dictation was accomplished with the use of [employer] voice recognition software, prone to medical misidentifications and grammatical errors. This is unintentional and the practitioner does try to identify and correct these, but some could still be present. Please do not hesitate to contact practitioner for clarification. 07/11/2024 Pain in left hip (ICD-10 - M25.552) Pleasant 34-year-old female here for complete physical exam. # Patient needs a letter of support from us fax over to general surgical care and bariatric surgery at [phone]. Will fill it out and fax over. # Admits to right hip pain, worse than left but does admit to bilateral hip pain for the past 3 months, on and off. Questioning arthritis and is hoping for x-rays. Physical exam overall benign. No red flag symptoms. Declines any numbness, tingling or weakness. Has been exercising more to try to assist with weight loss.Will order x-rays of bilateral hips. Call with concern. Discussed conservative treatments in the meantime. #Has an appoint with cardiology in August after an abnormal EKG with bariatric surgeon. Will try to obtain records for this.Patient is unsure any further information. #Referring to [facility] for psoriasis. Also has rash of the scalp, for which ketoconazole shampoo has worked in the past, will prescribe. #Diabetes Mellitus, PCOS: Patient discontinued IVF treatment. Patient currently takes Metformin 1000mg BID and Mounjaro 5mg. CBC on 02/18/2024 revealed glucose of 149 and HgbA1c of 7.5. HbgA1c in office 7.1. Most recent values June 2024 showing hemoglobin A1c 5.5, fasting sugars 111. Continuing Mounjaro 10 mg, decrease metformin to 500 mg twice daily, repeat labs in 6 months, and continue decreasing medication dose with continued improvement. #Hyperlipidemia: Patient restarted rosuvastatin 5mg. No acute concerns. Most recent labs in June 2024 within normal limits. No change to treatment at this time. #Hypothyroidism: Patient has not taken levothyroxine in 1-2 months. TSH on 02/18/2024 was 1.47. Patient wishes to discontinue levothyroxine completely. Will discontinue medication, Monitor levels in the future. No concern at this time. # Vitamin D deficiency: Continue vitamin D # GERD: Patient on omeprazole 40mg for acid reflux. Reports having no reflux since restarting medication. Educated patient on long terms effects including decreased bone density and reliance on the medication. Talked to patient about cutting dose to 20mg a day. Patient understands and will try. # Elevated liver enzymes: Has had a CT showing fatty liver disease and cholesterol in her gallbladder. Tirzepatide has been proven to help at this time, but working on lifestyle/weight loss as well declines red flag symptoms.Most recent liver enzymes have almost normalized. Continue to encourage weight loss. # Patient up-to-date on all screening test, up-to-date on the flu obtain Tdap today. Declines COVID. Healthcare proxy filled out today 07/11/2024. # PHQ-9 with a total score 9. Patient does admit to slight depression, declines suicidal ideation but continues to decline any further conversation. Offered/recommended therapy, psychiatry, supplements, or pharmaceutical medications which she declines. Did offer support. Patient follow-up in 6 months, will call with results of x-ray in the meantime. [facility] in the meantime as well. Patient seen and examined. Comprehensive discussion was done on the following. 1. Nutrition: It is important to follow a healthy diet based on lots of vegetables and legumes and good fat. Avoid processed food and processed carbohydrates. Prepare your own meals. Read labels and avoid high fructose corn syrup, processed chemicals added to increase shelf life and preprepared meals. Avoid fast foods. Eat slowly and plan meals for a week. Try to count calories and be mindful off daily calorie intake. Get into the habit of keeping an eye on your weight by using an appropriate scale. Learn to log exercise and discussed fitness Apps like [employer] which can help keep log off calories taken versus calories burned. Local food should be preferred. Discussed Dirty [employer] Versus [employer] Fifteen. Discussed healthy supplements like fish oil, Tumeric, Curcumin, Melatonin, Resveratrol, Probiotics, Vitamin-D, Alpha-Lipoic acid, Vitamin-D and coconut oil. 2. It is important to exercise regularly. Is a good habit to walk at least 30 minutes a day. Gentle weightlifting with standard precautions to protect the back. Finding activity like cycling or hiking and get into the habit of engaging in it. Stretching before and after the exercises important. It is also important to contact me if there are any problems like shortness of breath, chest pain, back pain and joint or muscle pain associated with the exercise. 3. Discussed age appropriate screening guidelines. Colonoscopy needs to start at age 50 with stool for occult blood as appropriate. There is a new test that can test for genetic abnormalities in the stool sample, Cologuard. This would not replace a colonoscopy but could be used as a screening tool for patients who do not want a colonoscopy. We discussed the importance of early detection of colon cancer. 4. Discussed current guidelines with respect to breast examination, mammogram and pap smear for early detection of breast and cervical cancer. Patient advised to follow up with these appointments. 5. Discussed safe driving and no use of smart phone while driving 6. Age-appropriate immunizations were discussed. A tetanus booster is needed every 10 years. Flu vaccine is recommended every year just before the start of the flu season. Shingles vaccine is recommended after age 50 but not all insurances cover it. Pneumonia vaccine is given after age 65 unless there are certain comorbidities for which it is started earlier. 7. Diagnostic labs were discussed. These could include/not limited to CBC CMP and lipids with fasting blood glucose and insulin levels. Vitamin D and hemoglobin A1c testing might be appropriate. All quetsions answered to patients satisfaction. Patient verbalized understanding of diagnosis and treatments explained. To call sooner prior to next visit it any questions/concerns arise. Case discussed with collaborating physician Aramis Walton who reviewed the assessment and plan. Chart, medications, labs, vital signs reviewed. Dictation was accomplished with the use of [employer] voice recognition software, prone to medical misidentifications and grammatical errors. This is unintentional and the practitioner does try to identify and correct these, but some could still be present. Please do not hesitate to contact practitioner for clarification. PLAN OF TREATMENT Pending Test Test Name Order Date X ray : Hip, bilateral 07/11/2024 MRCP 04/16/2023 MRI : Brain without Contrast 06/11/2023 25OH VITAMIN D 03/06/2021 CBC (COMPLETE BLOOD COUNT) 09/24/2021 COMPREHENSIVE METABOLIC PANEL 09/24/2021 HEMOGLOBIN A1C 09/24/2021 LIPID PANEL 09/24/2021 URINALYSIS W/REFLEX CULTURE 09/24/2021 MRI Abdomen w Contrast 04/12/2023 XR Foot 3+ Views LT 09/27/2020 LIPID PANEL, STANDARD 11/11/2021 LIPID PANEL, STANDARD 05/01/2022 LIPID PANEL, STANDARD 12/10/2023 LIPID PANEL, STANDARD 02/22/2024 LIPID PANEL, STANDARD 12/25/2024 MICROALBUMIN, RANDOM URINE (W/CREATININE ) 05/01/2022 COMPREHENSIVE METABOLIC PANEL 05/01/2022 COMPREHENSIVE METABOLIC PANEL 02/22/2024 COMPREHENSIVE METABOLIC PANEL 12/10/2023 COMPREHENSIVE METABOLIC PANEL 12/25/2024 CBC (INCLUDES DIFF/PLT) 12/25/2024 CBC (INCLUDES DIFF/PLT) 12/10/2023 CBC (INCLUDES DIFF/PLT) 02/22/2024 CBC (INCLUDES DIFF/PLT) 05/01/2022 URINALYSIS, COMPLETE 05/01/2022 URINALYSIS, COMPLETE 12/10/2023 URINALYSIS, COMPLETE 02/22/2024 URINALYSIS, COMPLETE 12/25/2024 HEMOGLOBIN A1c 12/25/2024 HEMOGLOBIN A1c 02/22/2024 HEMOGLOBIN A1c 12/10/2023 HEMOGLOBIN A1c 05/01/2022 HEMOGLOBIN A1c 11/11/2021 VITAMIN B12 03/11/2023 VITAMIN B12 12/25/2024 T4, FREE 03/11/2023 TSH 03/11/2023 TSH 12/10/2023 TSH 02/22/2024 VITAMIN D,25-OH,TOTAL,IA 12/25/2024 MR Abdomen W WO 04/16/2023 US Abdomen 03/11/2023 LYME AB SCREEN 06/11/2023 URINE HCG QUAL 12/14/2022 US Liver 03/11/2023 TSH+T4F+T3Free 12/25/2024 PPC Hemoglobin A1C 12/25/2024 Future Test Test Name Order Date ALKALINE PHOSPHATASE 02/05/2021 ALT (SGPT) 02/05/2021 AST (SGOT) 02/05/2021 HEMOGLOBIN A1C 02/05/2021 Next Appt Details Provider Name:NEHEMIAS BOURNE, 07/18/2025 08:00:00 AM, [address], [place], [address], Insurance Providers Payer Name Payer Address Payer Phone Subscriber Number Group Number Insured Name Patient Relationship to Insured Coverage Start Date Coverage End Date [facility] [address] [place] [address] [id number] CODY OREILLY Self - patient is the insured MEDICAL (GENERAL) HISTORY Medical History History ICD Code Diabetes mellitus with no complication E 11.9 Seasonal allergies J30.2 Hyperlipidemia, mild E78.5 GERD without esophagitis K21.9 Vitamin D deficiency E55.9 Psoriatic arthritis L40.50 Surgical History Surgery Date(Month/Year) egg retrevial 11/2023 gastric sleeve 12/07/24
--- OUTSIDE RECORDS SUMMARY | 2024-12-28 07:48 | XMS_ITS ---
Author Organization [facility] Address [address] [place] [id number] Care Team Providers Care Scientific Affairs Manager Name Role Phone NEHEMIAS BOURNE Unavailable [phone] ALLERGIES Allergen (clinical drug ingredient) Drug/Non Drug Allergy documented on EMR Reaction Allergy Type Onset Date Status Feathers feathers (uncoded) Unknown Allergy A ctive grass (uncoded) Unknown Allergy Acti ve dulaglutide Trulicity rash Drug Allergy Activ e Dust Mites Unknown Allergy Active Pollen Pollen Unknown Allergy Active REASON FOR VISIT pt in office today for 6 month f/u. 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 See 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 PROBLEMS Problem Type ICD Code Onset Dates Problem Status W/U Status Risk SNOMED Code Notes Problem Psoriatic arthritis (L40.50) Active confirmed Psoriatic arthritis (818014253) Problem Difficulty concentrating (R41.840) Active confirmed 70834589 VITAL SIGNS Blood pressure systolic 126 mm Hg 12/26/19 25 Blood pressure diastolic 82 mm Hg 025 Heart Rate 101 /min 12/25/2024 Height 64 in 12/25/2024 Weight 196.8 lbs 12/25/2024 BMI 33.78 kg/m2 12/25/2024 Oximetry 97 % 12/25/2024 Encounters Encounter Location Date Provider Diagnosis [facility] [address] [place] [address] 12/25/2024 NEHEMIAS BOURNE GERD without esophag itis K21.9 ; Psoriatic arthritis L40.50 ; Mixed hyperlipidemia E78.2 ; Infertility, female N97.9 ; Seasonal allergies J30.2 ; Pain in right hip M25.551 ; Pain in left hip M25.552 ; Difficulty concentrating R41.840 and Hyperglycemia R73.9 ASSESSMENTS Encounter Date Diagnosis Assessment Notes Treatment Notes Treatment Clinical Notes Section Notes 12/25/2024 GERD without esophagitis (ICD-10 - K21.9) # Patient had bariatric surgery with the gastric sleeve December 2024, doing really well. Last visit patient's weight 224, today 196. Taking B vitamins, still on pureed diet, following with a surgical aides teacher, and surgeon. Pleased with progress overall. Taking [...] with improvement in joint pain. #Referring to [facility] for psoriasis. Prescribed clobetasol and fluocinolone [...] admits to some inattentiveness. Given information for [facility] Follow-up in July [...] Dictation was accomplished with the use of Trendabl voice recognition software, prone to medical misidentifications and grammatical errors. This is unintentional and the practitioner does try to identify and correct these, but some could still be present. Please do not hesitate to contact practitioner for clarification. 12/25/2024 Psoriatic arthritis (ICD-10 - L40.50) # Patient had bariatric surgery with the gastric sleeve December 2024, doing really well. Last visit patient's weight 224, today 196. Taking B vitamins, still on pureed diet, following with a surgical aides teacher, and surgeon. Pleased with progress overall. Taking [...] with improvement in joint pain. #Referring to [facility] for psoriasis. Prescribed clobetasol and fluocinolone [...] admits to some inattentiveness. Given information for [facility] Follow-up in July [...] Dictation was accomplished with the use of Trendabl voice recognition software, prone to medical misidentifications [...] still on pureed diet, following with a surgical aides teacher, and surgeon. Pleased with progress overall. Taking [...] with improvement in joint pain. #Referring to [facility] for psoriasis. Prescribed clobetasol and fluocinolone [...] admits to some inattentiveness. Given information for [facility] Follow-up in July [...] Dictation was accomplished with the use of Trendabl voice recognition software, prone to medical misidentifications and grammatical errors. This is unintentional and the practitioner does try to identify and correct these, but some could still be present. Please do not hesitate to contact practitioner for clarification. 12/25/2024 Infertility, female (ICD-10 - N97.9) # Patient had bariatric surgery with the gastric sleeve December 2024, doing really well. Last visit patient's weight 224, today 196. Taking B vitamins, still on pureed diet, following with a surgical aides teacher, and surgeon. Pleased with progress overall. Taking [...] with improvement in joint pain. #Referring to [facility] for psoriasis. Prescribed clobetasol and fluocinolone [...] admits to some inattentiveness. Given information for [facility] Follow-up in July [...] Dictation was accomplished with the use of Trendabl voice recognition software, prone to medical misidentifications [...] still on pureed diet, following with a surgical aides teacher, and surgeon. Pleased with progress overall. Taking [...] with improvement in joint pain. #Referring to [facility] for psoriasis. Prescribed clobetasol and fluocinolone [...] admits to some inattentiveness. Given information for [facility] Follow-up in July [...] Dictation was accomplished with the use of Trendabl voice recognition software, prone to medical misidentifications [...] still on pureed diet, following with a surgical aides teacher, and surgeon. Pleased with progress overall. Taking [...] with improvement in joint pain. #Referring to [facility] for psoriasis. Prescribed clobetasol and fluocinolone [...] admits to some inattentiveness. Given information for [facility] Follow-up in July [...] Dictation was accomplished with the use of Trendabl voice recognition software, prone to medical misidentifications [...] still on pureed diet, following with a surgical aides teacher, and surgeon. Pleased with progress overall. Taking [...] with improvement in joint pain. #Referring to [facility] for psoriasis. Prescribed clobetasol and fluocinolone [...] admits to some inattentiveness. Given information for [facility] Follow-up in July [...] Dictation was accomplished with the use of Trendabl voice recognition software, prone to medical misidentifications [...] still on pureed diet, following with a surgical aides teacher, and surgeon. Pleased with progress overall. Taking [...] with improvement in joint pain. #Referring to [facility] for psoriasis. Prescribed clobetasol and fluocinolone [...] admits to some inattentiveness. Given information for [facility] Follow-up in July [...] Dictation was accomplished with the use of Trendabl voice recognition software, prone to medical misidentifications [...] still on pureed diet, following with a surgical aides teacher, and surgeon. Pleased with progress overall. Taking [...] with improvement in joint pain. #Referring to [facility] for psoriasis. Prescribed clobetasol and fluocinolone [...] admits to some inattentiveness. Given information for [facility] Follow-up in July [...] Dictation was accomplished with the use of Trendabl voice recognition software, prone to medical misidentifications and grammatical errors. This is unintentional and the practitioner does try to identify and correct these, but some could still be present. Please do not hesitate to contact practitioner for clarification. PLAN OF TREATMENT Pending Test Test Name Order Date LIPID PANEL, STANDARD 12/25/2024 COMPREHENSIVE METABOLIC PANEL 12/25/2024 CBC (INCLUDES DIFF/PLT) 12/25/2024 URINALYSIS, COMPLETE 12/25/2024 HEMOGLOBIN A1c 12/25/2024 VITAMIN B12 12/25/2024 VITAMIN D,25-OH,TOTAL,IA 12/25/2024 TSH+T4F+T3Free 12/25/2024 PPC Hemoglobin A1C 12/25/2024 Next Appt Details Provider Name:NEHEMIAS BOURNE, 07/18/2025 08:00:00 AM, [address], [place], [address], Progress Notes * CODY BUTTERFIELDDOB:[birth year] (34 yo F)Acc No.[id number]:12/25/2024 Progress Notes Patient:??CODY BUTTERFIELD Provider:??NEHEMIAS BARLOW PA-C :1990?Age:34 Y?Sex:Fe male Date:12/25/2024 Address:[address] [place] [address], [facility] Subjective: * Chief Complaints: * ?1. pt in office today for 6 month f/u. A1C done in office. 2. Pt had no questions or concerns. * HPI: ?Constitutional:? Cody Is a pleasant 34-year-old female who presents the office for follow-up visit. Past medical history including but not limited to type 2 diabetes, seasonal allergies, hyperlipidemia, GERD, vitamin D deficiency, obesity. Patient last seen for complete physical on 07/11/2024, following up today for repeat A1c in office. Labs completed on 07/05/2024 with glucose 150, ALT 52, A1c at that time 5.5. A1c in office today December 25, 2024 5.1, she is feeling very well. Her gastric sleeve surgery was December 07, 2024, and the surgeon discontinued her Dexcom, her metformin, her Mounjaro, and her rosuvastatin. She is feeling very well. Has been still eating a pureed diet. Weight 196 today, following regularly with a surgical aides teacher, next visit with the surgeon is in February. 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 Like to follow with psychiatrist for evaluation. ?Patient also saw dermatology, they treated her with topical clobetasol, and fluocinolone, as well as oral Otezla 30 mg twice daily. This is also been helping her joint pain as she was diagnosed with psoriatic arthritis. * ROS:?Constitutional: Patient denies any excessive fatigue with exercise, no weight loss, no fever, no night sweats, no changes in sleep. ???Cardiovascular: No chest pain, no dyspnea on exertion, no PND, no orthopnea, no irregular pulse, no palpitations, no claudication, no diaphoresis, no claudication. ???Respiratory: No chronic cough, no hemoptysis, no sputum, no wheezing, no SOB, no pleuritic pain. ???GI: No diarrhea, no constipation, no blood in the stools, no pain associated with eating, no indigestion, no difficulty swallowing, no appetite change. ???Genitourinary: No painful urination, no hesitancy, no blood in the urine, no incontinence, no frequency, no urgency, no abnormal discharge. ???Neurological: No history of seizures, no memory loss, no language dysfunction, + inability to concentrate, no localized weakness, no sensation loss, no confusion, no dizziness, no tremor, no numbness, no tingling. ???Psychiatric: no anxiety, no depression, no suicidal thoughts, feels safe at home. * Medical History:??Diabetes m ellitus with no complication, Seasonal allergies, Hyperlipidemia, mild, GERD without esophagitis, Vitamin D deficiency, Psoriatic arthritis. * Surgical History:??egg retre vial 11/2023, gastric sleeve 12/07/24. * Hospitalization/Major Diagno stic Procedure:??Denies Past Hospitalization. * Family History:??Father: dec eased.??Mother: alive.??3 brother(s) - healthy. .?? mother: DM father: DM, HTN, liver disease, kisney disease with dialysis, hx drug abuse. 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 * Medications:??Taking Otezla 30 MG Tablet 1 tablet Orally Twice a day , Taking Famotidine 20 MG Tablet 1 tablet as needed Orally Twice a day , Taking Vitamin B-1 , Taking CVS D3 50 MCG (2000 UT) Capsule 1 capsule Orally Once a day , Taking Albuterol Sulfate (2.5 MG/3ML) 0.083% Nebulization Solution 3 mL as needed Inhalation every 6 hrs , Taking Montelukast Sodium 10 MG Tablet 1 tablet Orally Once a day , Taking Loratadine 10 MG Tablet TAKE 1 TABLET BY MOUTH EVERY DAY FOR 90 DAYS , Taking Vitamin D3 50 MCG (2000 UT) Capsule TAKE 1 CAPSULE BY MOUTH EVERY DAY FOR 90 DAYS , Taking Clobetasol Propionate 0.05 % Shampoo PLEASE SEE ATTACHED FOR DETAILED DIRECTIONS External , Taking Fluocinolone Acetonide 0.01 % Oil APPLY 3-4 DROPS TO BOTH EAR DAILY UNTIL SYMPTOMS IMPROVED. THEN USE NEEDED FOR MAINTENANCE. Otic , Taking Docusate Sodium 100 MG Capsule TAKE 1 CAPSULE BY MOUTH TWICE A DAY Oral , Discontinued 27-1 MG Tablet 1 tablet Orally Once a day , Discontinued Dexcom G6 Slurry Control Operator Helper - Device daily e11.9 , Discontinued Omeprazole 40 MG Capsule Delayed Release 1 capsule 30 minutes before morning meal Orally Once a day , Discontinued Ketoconazole 2 % Foam 1 application Externally Twice a day , Discontinued metFORMIN HCl 1000 MG Tablet TAKE 1 TABLET BY MOUTH TWICE A DAY WITH MEALS , Discontinued Mucinex 600 MG Tablet Extended Release 12 Hour 1 tablet as needed Orally every 12 hrs , Discontinued guaiFENesin-Codeine 100-10 MG/5ML Solution 10 ml Orally every 6 hrs As needed cough, Discontinued Mounjaro 10 MG/0.5ML Solution Pen-injector 10 mg Subcutaneous weekly , Discontinued Rosuvastatin Calcium 5 MG Tablet TAKE 1 TABLET BY MOUTH EVERY DAY , Medication List reviewed and reconciled with the patient * Allergies:??Pollen: Allergy - Criticality Low, Dust Mites: Allergy - Criticality Low, grass, feathers, Trulicity: rash. Objective: * Vitals:??HR:101/min, BP:126/ 82mm Hg, Wt:196.8lbs, BMI:33.78Index, Ht: 64 in, Oxygen sat %:97%. * Physical Examination:?General: Age appropriate female, well appearing, no acute distress, speaking in full sentences without respiratory compromise. Well groomed, well developed. Alert, Interactive. ?Skin: Warm, dry and intact. ?HEENT: Normocephalic/atraumatic. ?Lung: Clear to auscultation bilaterally, no wheezes, rales or rhonchi. No barrel chest. Equal chest rise and fall bilaterally. ?Cardiac: S1 and S2 appreciated. No murmurs/rubs or gallops. ?Neuro: CN II-XI grossly intact. Steady gait with ambulation observed. ?Psych: Stable mood and affect. Assessment: * Assessment: 1.??Psoriatic arthritis - L4 0.50 (Primary)??2.??GERD without esophagitis - K21.9??3.??Mixed hyperlipidemia - E78.2??4.??Infertility, female - N97.9??5.??Seasonal allergies - J30.2??6.??Pain in right hip - M25.551??7.??Pain in left hip - M25.552??8.??Difficulty concentrating - R41.840??9.??Hyperglycemia - R73.9?? # Patient had bariatric surg nancie with the gastric sleeve December 2024, doing really well. Last visit patient's weight 224, today 196. Taking B vitamins, still on pureed diet, following with a surgical aides teacher, and surgeon. Pleased with progress overall. Taking [...] with improvement in joint pain. #Referring to [facility] for psoriasis. Prescribed clobetasol and fluocinolone [...] admits to some inattentiveness. Given information for [facility] Follow-up in July [...] Dictation was accomplished with the use of Trendabl voice recognition software, prone to medical misidentifications and grammatical errors. This is unintentional and the practitioner does try to identify and correct these, but some could still be present. Please do not hesitate to contact practitioner for clarification. Plan: * Treatment: * Labs:?? * ?Lab: PPC Hemoglobi n A1C ?Lab: HEMOGLOBIN A1c?Lab: VITAMIN D,25-OH,TOTAL,IA? Lab: URINALYSIS, COMPLETE?Lab: TSH+T4F+T3Free?Lab: COMPREHENSIVE METABOLIC PANEL?Lab: CBC (INCLUDES DIFF/PLT)? Lab: VITAMIN B12 * Procedure Codes:??92630 GLYC ATED HEMOGLOBIN TEST, Modifiers: QW * Images: Billing Information: * Visit Code:?? 52792 Office Visit, Est Pt., Level 4. Modifiers: SA * Procedure Codes:?? 54540 GLYCATED HEMOGLOBIN TEST. Modifiers: QW Care Plan Details* * Sign off status: Completed true * Provider:??NEHEMIAS BARLOW PA-C Date:??12/06 History and Physical Notes * HPI (History of Present Illness) Category Sub-Category Detail Notes Category Not es Constitutional Cody Is a pleasant 34-year-old female who presents the office for follow-up visit. Past medical history including but not limited to type 2 diabetes, seasonal allergies, hyperlipidemia, GERD, vitamin D deficiency, obesity. Patient last seen for complete physical on 07/11/2024, following up today for repeat A1c in office. Labs completed on 07/05/2024 with glucose 150, ALT 52, A1c at that time 5.5. A1c in office today December 25, 2024 5.1, she is feeling very well. Her gastric sleeve surgery was December 07, 2024, and the surgeon discontinued her Dexcom, her metformin, her Mounjaro, and her rosuvastatin. She is feeling very well. Has been still eating a pureed diet. Weight 196 today, following regularly with a surgical aides teacher, next visit with the surgeon is in February. 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 Like to follow with psychiatrist for evaluation. Patient also saw dermatology, they treated her with topical clobetasol, and fluocinolone, as well as oral Otezla 30 mg twice daily. This is also been helping her joint pain as she was diagnosed with psoriatic arthritis. Physical Examination Category Sub-Category Detail Notes Section Note s General: Age appropriate female, well appearing, no acute distress, speaking in full sentences without respiratory compromise. Well groomed, well developed. Alert, Interactive. Skin: Warm, dry and intact. HEENT: Normocephalic/atraumatic. Lung: Clear to auscultation bilaterally, no wheezes, rales or rhonchi. No barrel chest. Equal chest rise and fall bilaterally. Cardiac: S1 and S2 appreciated. No murmurs/rubs or gallops. Neuro: CN II-XI grossly intact. Steady gait with ambulation observed. Psych: Stable mood and affect.
--- OUTSIDE RECORDS SUMMARY | 2024-12-28 07:49 | XMS_ITS ---
Author Organization [facility] Address [address] [place] [address] Care Team Providers Care Police Captain Name Role Phone NEHEMIAS BOURNE Unavailable [phone] REASON FOR VISIT Refills MEDICATIONS Medication SIG (Take, Route, Fr equency, Duration) Notes Start Date End Date Status Mounjaro 10 MG/0.5ML 10 mg Subcutaneous weekly for 28 days Active Encounters Encounter Location Date Provider Diagnosis [facility] [address] [place] [id number] 09/27/2024 NEHEMIAS BOURNE PLAN OF TREATMENT Medication Medication Name Sig Start Date Stop Date Notes Mounjaro 10 MG/0.5ML 10 mg Subcutaneous weekly for 28 days Next Appt Details Provider Name:NEHEMIAS SINGHNER, 07/18/2025 08:00:00 AM, [address] , [place], [address], Progress Notes * GREER BIBCLARKDOB:[birth year] (34 yo F)Acc No.[id number]:09/27/2024 Patient:??CODY BUTTERFIELD :1990?Age:34 Y?Sex:Fe male Address:[address] [place] [id number] * Refills?? Refill Mounjaro Solution Pen-injector, 10 MG/0.5ML, Subcutaneous, 4, 10 mg, weekly, 28 days, Refills=0 * true * Date:??
--- OUTSIDE RECORDS SUMMARY | 2024-12-28 07:49 | XMS_ITS ---
Author Organization [facility] Address [address] [place] [address] Care Team Providers Care Fabricator Foam [employer]ber Name Role Phone NEHEMIAS BOURNE Unavailable [phone] REASON FOR VISIT New Refill Request MEDICATIONS Medication SIG (Take, Route, Fr equency, Duration) Notes Start Date End Date Status Mounjaro 10 MG/0.5ML 10 mg Subcutaneous weekly for 28 days Active Encounters Encounter Location Date Provider Diagnosis [facility] [address] [place] [id number] 10/30/2024 NEHEMIAS BOURNE PLAN OF TREATMENT Medication Medication Name Sig Start Date Stop Date Notes Mounjaro 10 MG/0.5ML 10 mg Subcutaneous weekly for 28 days Next Appt Details Provider Name:NEHEMIAS TAYLA, 07/18/2025 08:00:00 AM, [address], [place], [id number], Progress Notes * GREER BIBCLARKDOB:[birth year] (34 yo F)Acc No.[id number]:10/30/2024 Patient:??CODY BUTTERFIELD :1990?Age:34 Y?Sex:Fe male Address:[address] [place] [id number] * Refills?? Refill Mounjaro Solution Pen-injector, 10 MG/0.5ML, Subcutaneous, 4, 10 mg, weekly, 28 days, Refills=0 * true * Date:??
== END 2024-12-28 08:15 | disposition home or self-care (01) ==
LOC: HO.HWS 07:45
PROVIDERS: PCP Internal Medicine; Visit Provider Advanced Practice Midwife
DX: N92.6 Irregular menstruation, unspecified (principal); Z30.431 Encounter for routine checking of intrauterine contraceptive device
CPT/HCPCS: 99213

== ENCOUNTER 2024-12-28 07:45 | Outpatient (REF) | payer OTHER, SELFPAY ==
[2024-12-28 16:44] LABS: Bacterial Vaginosis PCR NEGATIVE (Negative); Candida Group PCR NOT DETECTED (Not Detect); Candida glab krusei PCR NOT DETECTED (Not Detect); Trichomonas vaginalis PCR NOT DETECTED (Not Detect)
== END 2024-12-28 07:46 | disposition home or self-care (01) ==
LOC: HO.LAB 07:45
PROVIDERS: PCP Internal Medicine; Visit Provider Advanced Practice Midwife
DX: N92.6 Irregular menstruation, unspecified (principal)
CPT/HCPCS: 81515

== ENCOUNTER 2025-01-16 14:14 | Outpatient (REF) | payer OTHER, SELFPAY ==
--- NOTE | ~2025-01-16 | US_ITS ---
EXAMINATION: US PELVIS TRANSABDOMINAL AND TRANSVAGINAL HISTORY: N92.6 - Irregular menstruation, unspecified COMPARISON: Comparison is made to the prior examination dated 01/06/2022. TECHNIQUE: Transabdominal and endovaginal real-time 2D shine-scale ultrasound was performed. FINDINGS: Uterus: The uterus is normal in size, measuring 8.6 x 3.7 x 5.4 cm. Myometrium has a normal echotexture. No fibroids are identified. Endometrium: The endometrial stripe measures 5 mm in thickness. An IUD is noted in appropriate position in the endometrial cavity. Right ovary: The right ovary measures 4.5x 3.0 x 2.7 cm. The right ovary is normal in size and echotexture. Left ovary: The left ovary measures 4.0 x 2.7 x 2.5 cm. The left ovary is normal in size and echotexture. Pelvic fluid: none. US/US pelvic and transvaginal IMPRESSION: Unremarkable pelvic ultrasound. IUD in appropriate position in the endometrial cavity. Electronically signed by: Ephraim Rider MD 01/16/2025 03:37 PM EDT
--- OUTSIDE RECORDS SUMMARY | 2025-01-16 15:28 | XMS_ITS | Patient Health Record ---
Author Organization [facility] Address [address] [place] [address] Care Team Providers Care Financial Dealers Name Role Phone NEHEMIAS BOURNE Unavailable [phone] DOUGLAS DOUGLAS Unavailable [phone] ALLERGIES Allergen (clinical drug ingredient) Drug/Non Drug Allergy documented on EMR Reaction Allergy Type Onset Date Status Feathers feathers (uncoded) Unknown Allergy A ctive grass (uncoded) Unknown Allergy Acti ve dulaglutide Trulicity rash Drug Allergy Activ e Dust Mites Unknown Allergy Active Pollen Pollen Unknown Allergy Active RESULTS Component Value Reference Range Notes Hemoglobin [id number] Reviewed date:02/19/2024 09:05:53 AM Interpretation: Performing Lab:[facility], [address] [place] [address], Phone - [phone], Director - Jassi Notes/Report: Hemoglobin A1c 7.5 4.8-5.6 % . Prediabetes: 5.7 - 6.4 Diabetes: >6.4 Glycemic control for adults with diabetes: <7.0 Vitamin [id number] Reviewed date:01/10/2025 03:37:29 PM Interpretation: Performing Lab:[facility], [facility], Phone - [phone], Director - Jassi Notes/Report: Vitamin B12 893 000-9423 pg/mL Urinalysis, Routine-[id number] Reviewed date:07/05/2024 08:01:37 AM Interpretation: Performing Lab:[facility], [facility], Phone - [phone], Director - Jassi Notes/Report: Specific [place] 1.007 1.005-1.030 pH 6.5 5.0-7.5 Urine-Color Yellow Yellow Appearance Clear Clear WBC Esterase Negative Negative Protein Negative Negative/Trace Glucose Negative Negative Ketones Negative Negative Occult Blood Negative Negative Bilirubin Negative Negative Urobilinogen,Semi-Qn 0.2 0.2-1.0 mg/dL Nitrite, Urine Negative Negative Microscopic Examination Micr oscopic not indicated and not performed. Urinalysis, Complete-[id number] Reviewed date:01/16/2025 08:50:46 AM Interpretation: Performing [facility], [address] [place] [address], Phone - [phone], Director - [facility] Notes/Report: Specific [place] 1.020 1.005-1.030 pH 5.5 5.0-7.5 Urine-Color Yellow Yellow Appearance Clear Clear WBC Esterase 1+ Negative Protein 1+ Negative/Trace Glucose Negative Negative Ketones 1+ Negative Occult Blood 3+ Negative Bilirubin Negative Negative Urobilinogen,Semi-Qn 0.2 0.2-1.0 mg/dL Nitrite, Urine Negative Negative Microscopic Examination See below: Micr oscopic was indicated and was performed. Microscopic Examination WBC 11-30 0 - 5 /hpf RBC 11-30 0 - 2 /hpf Epithelial Cells (non renal) >10 0 - 10 /hpf Epithelial Cells (renal) Casts None seen None seen /lpf Cast Type Crystals Present N/A Crystal Type Calcium Oxalate N/A Mucus Threads Bacteria Few None seen/Few Yeast Trichomonas Comment Urinalysis, Complete-[id number] Reviewed date:02/19/2024 09:06:01 AM Interpretation: Performing Lab[facility], [address] [place] [address], Phone - [phone], Director - Jassi Notes/Report: Specific [place] 1.011 1.005-1.030 pH 7.5 5.0-7.5 Urine-Color Yellow [...] Bacteria Few None seen/Few Yeast Trichomonas Comment TSH-[id number] Reviewed date:02/19/2024 08:56:27 AM Interpretation: Performing Lab:[facility], [address] [place] [address], Phone - [phone], Director - [facility] Notes/Report: TSH 1.470 0.450-4.500 uIU/mL TSH-[id number] Reviewed date:01/10/2025 03:37:52 PM Interpretation: Performing Lab:[facility] [place], [address] [place] [address], Phone - [phone], Director - MDdry Notes/Report: TSH 1.270 0.450-4.500 uIU/mL TSH-[id number] Reviewed date:07/05/2024 08:01:37 AM Interpretation: Performing [facility], [address] [place] [address], Phone - [phone], Director - [facility] Notes/Report: TSH 2.160 0.450-4.500 uIU/mL CBC With Differential/Platel et-[id number] Reviewed date:07/05/2024 08:01:37 AM Interpretation: Performing Lab:[facility] [place], [address] [place] [address], Phone - [phone], Director - MDdry Notes/Report: WBC 8.3 3.4-10.8 x10E3/uL RBC 4.26 [...] x10E3/uL NRBC Hematology Comments: CBC With Differential/Platel et-[id number] Reviewed date:01/10/2025 03:40:05 PM Interpretation: Performing Lab:[facility], [address] [facility], Phone - [phone], Director - Kayleey Notes/Report: WBC 4.4 3.4-10.8 x10E3/uL RBC 4.45 3.77-5.28 x10E6/uL Hemoglobin 13.1 11.1-15.9 g/dL Hematocrit 39.5 34.0-46.6 % MCV 89 79-97 fL MCH 29.4 26.6-33.0 pg MCHC 33.2 31.5-35.7 g/dL RDW 14.5 11.7-15.4 % Platelets 208 150-450 x10E3/uL Neutrophils 54 Not Estab. % Lymphs 33 Not Estab. % Monocytes 9 Not Estab. % Eos 3 Not Estab. % Basos 1 Not Estab. % Immature Cells Neutrophils (Absolute) 2.4 1.4-7.0 x10E3/uL Lymphs (Absolute) 1.4 0.7-3.1 x10E3/uL Monocytes(Absolute) 0.4 0.1-0.9 x10E3/uL Eos (Absolute) 0.1 0.0-0.4 x10E3/uL Baso (Absolute) 0.0 0.0-0.2 x10E3/uL Immature Granulocytes 0 Not Estab. % Immature Grans (Abs) 0.0 0.0-0.1 x10E3/uL NRBC Hematology Comments: CBC With Differential/Platel et-[id number] Reviewed date:02/19/2024 08:56:27 AM Interpretation: Performing Lab:[facility], [address] [facility], [place], Phone - [phone], Director - Jassi Notes/Report: WBC 8.2 3.4-10.8 [...] % Immature Grans (Abs) 0.0 0.0-0.1 x10E3/uL NR Hematology Comments: Vitamin D, 64-Aeyjjiy-[id number] Reviewed date:01/10/2025 03:37:29 PM Interpretation: Performing Lab:[facility], [address] [place] [address], [place], Phone - [phone], Director - Jassi Notes/Report: Vitamin D, 25-Hydroxy 45.4 30.0-100.0 ng/mL Vitamin D deficiency has been defined by the [place] of [employer] and an Endocrine Society practice guideline as a level of serum 25-OH vitamin D less than 20 ng/mL (1,2). The Endocrine Society went on to further define vitamin D insufficiency as a level between 21 and 29 ng/mL (2). 1. IOM ([place] of Medicine). 2010. Dietary reference intakes for calcium and D. [place]: The National Academies Press. 2. Phillip MF, Hazel NC, Sarah ADAN, et al. Evaluation, treatment, and prevention of vitamin D deficiency: an Endocrine Society clinical practice guideline. JCEM. 2010; 96(7):1911-30. Hgb A1c with eAG Estimation- [id number] Reviewed date:07/05/2024 08:01:37 AM Interpretation: Performing Lab:[facility], [address] [place] [address], Phone - [phone], Director - Jassi Notes/Report: Hemoglobin A1c 5.5 4.8-5.6 % . Prediabetes: 5.7 - 6.4 Diabetes: >6.4 Glycemic control for adults with diabetes: <7.0 Estim. Avg Glu (eAG) 111 Lipid Panel-[id number] Reviewed date:07/05/2024 08:01:37 AM Interpretation: Performing Lab:[facility] [place], [address] [place] [address], Phone - [phone], Director - Jassi Notes/Report: Cholesterol, Total 140 100-199 mg/dL Triglycerides 119 0-149 mg/dL HDL Cholesterol 53 >39 mg/dL VLDL Cholesterol Alexis 21 5-40 mg/dL LDL Chol Calc (NIH) 66 0-99 mg/dL LDL Calc Comment: Lipid Panel-[id number] Reviewed date:01/16/2025 08:50:46 AM Interpretation: Performing Lab:[facility], [address] [place] [address], Phone - [phone], Director - Jassi Notes/Report: Cholesterol, Total 185 100-199 mg/dL Triglycerides 110 0-149 mg/dL HDL Cholesterol 48 >39 mg/dL VLDL Cholesterol Alexis 20 5-40 mg/dL LDL Chol Calc (NIH) 117 0-99 mg/dL LDL Calc Comment: Lipid Panel-[id number] Reviewed date:02/19/2024 08:56:27 AM Interpretation: Performing Lab:[facility] [address] [place] [address], Phone - [phone], Director - Jassi Notes/Report: Cholesterol, Total 177 100-199 mg/dL Triglycerides 121 0-149 mg/dL HDL Cholesterol 63 >39 mg/dL VLDL Cholesterol Alexis 21 5-40 mg/dL LDL Chol Calc (NIH) 93 0-99 mg/dL LDL Calc Comment: Comp. Metabolic Panel (14)-3 Reviewed date:02/19/2024 09:06:10 AM Interpretation: Performing Lab:[facility] [address] [place] [address], Phone - [phone], Director - Jassi Notes/Report: Glucose 149 70-99 mg/dL BUN 11 [...] (SGPT) 131 0-32 IU/L Comp. Metabolic Panel (14)- Reviewed date:01/16/2025 08:50:46 AM Interpretation: Performing Lab:[facility], [address] [facility], Phone - [phone], Director - MDJodry Notes/Report: Glucose 107 70-99 mg/dL BUN 11 6-20 mg/dL Creatinine 0.72 0.57-1.00 mg/dL eGFR 111 >59 mL/min/1.73 BUN/Creatinine Ratio 15 9-23 Sodium 143 134-144 mmol/L Potassium 3.8 3.5-5.2 mmol/L Chloride 105 96-106 mmol/L Carbon Dioxide, Total 20 20-29 mmol/L Calcium 9.6 8.7-10.2 mg/dL Protein, Total 7.2 6.0-8.5 g/dL Albumin 4.4 3.9-4.9 g/dL Globulin, Total 2.8 1.5-4.5 g/dL Bilirubin, Total 0.6 0.0-1.2 mg/dL Alkaline Phosphatase 85 44-121 IU/L AST (SGOT) 21 0-40 IU/L ALT (SGPT) 18 0-32 IU/L Comp. Metabolic Panel (14)- Reviewed date:07/05/2024 08:09:41 AM Interpretation: Performing Lab:[facility], [address] [facility], Phone - [phone], Director - MDJodry Notes/Report: Glucose 150 70-99 mg/dL BUN 12 [...] 0-40 IU/L ALT (SGPT) 52 0-32 IU/L Hemoglobin A1c Reviewed date:01/10/2025 03:37:52 PM Interpretation: Performing Lab:[facility], [address] [facility], [place], Phone - [phone], Director - Jassi Notes/Report: Hemoglobin A1c 5.0 Reference Range: [place] Diabetes Association (ADA) Guidelines: <5.7: Decreased risk for diabetes 5.7 - 6.4: Increased risk for diabetes >6.4: Ongoing Hyperglycemia of any cause <7.0: Glycemic control for adults with diabetes Estimated Average Glucose 97 T4F+T3Free Reviewed date:01/10/2025 03:37:52 PM Interpretation: Performing Lab:[facility], [address] [facility], [place], Phone - [phone], Director - Jassi Notes/Report: Thyroxine (T-4), Serum 9.5 Reference Range: Adults: 4.2 - 13.0 Free T-3 3.1 Reference Range: >=20y: 2.0 - 4.4 Triiodothyronine (T-3), Serum 111 Reference Range: Adults: 55 - 170 Free Thyroxine 1.44 Reference Range: >=20y: 0.82 - 1.77 REASON FOR REFERRAL Diagnosis 1 Psoriasis, unspecifi ed (L40.9) Referral Organization [facility] Referring Provider First Name NEHEMIAS Referring Provider Last Name TAYLA Referring Provider Speciality Internal M edicine Referred Provider Specialty Dermatology General Notes Rubia Figueroa 2023 09:55:51 AM > referral sent to [facility] , [address], [address], [place] [address], [email or web address], , Referral Priority Routine MEDICATIONS Medication SIG [...] Are you a nonsmoker Section Notes: medical practice assistant medical practice assistant See HPI medical practice assistant medical practice assistant medical practice assistant medical practice assistant medical practice assistant medical practice assistant medical practice assistant medical practice assistant See HPI medical practice assistant medical practice assistant medical practice assistant medical practice assistant medical practice assistant medical practice assistant See HPI medical practice assistant medical practice assistant medical practice assistant medical practice assistant medical practice assistant medical practice assistant PROBLEMS Problem Type ICD Code Onset Dates Problem Status W/U Status Risk SNOMED Code Notes Problem Diabetes mellitus due to underlying 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 complications (E08.9) Active confirmed Secondary endoc rine diabetes mellitus (128740879) Problem Type 2 diabetes mellitus with hyperglycemia (E11.65) Active confirmed Hyperglycemia d ue to type 2 diabetes mellitus (649610065577560) Problem Type 2 diabetes mellitus with unspecified complications (E11.8) Active confirmed 48906684 Problem Diabetes insipidus (E23.2) Active confirmed Diabetes insipi dus (8457968231) Problem Vitamin D deficiency, unspecified (E55.9) Active confirmed 57616479 Problem Morbid (severe) obesity due to excess calories (E66.01) Active confirmed 810243508 Problem Mixed hyperlipidemia (E78.2) Active confirmed Mixed hyperlipi demia (407675490) Problem Hyperlipidemia, unspecified (E78.5) Active confirmed Hyperlipidemia (56704474) Problem Psoriasis, unspecified (L40.9) Active confirmed Psoriasis (7902861) Problem Nasal congestion (R09.81) Active confirmed Nasal congestio n (18722769) Problem Encounter for general adult medical examination without abnormal findings (Z00.00) Active confirmed 270625877 Problem Hyperlipidemia, unspecified hyperlipidemia type (E78.5) Active confirmed 70787223 Problem Acquired hypothyroidism (E03.9) Active confirmed 221534573 Problem Psoriatic arthritis (L40.50) Active confirmed Psoriatic arthritis (802786780) Problem Gall stones (K80.20) Active confirmed Gallstone (242911762) Problem Hypothyroidism, unspecified type (E03.9) Active confirmed 06127249 Problem Annual physical exam (Z00.00) Active confirmed Annual health maintenance examination (04787415) Problem Seasonal allergies (J30.2) Active confirmed 556639450 Problem Vitamin D deficiency (E55.9) Active confirmed Vitamin D deficiency (12660806) Problem Elevated liver enzymes (R74.8) Active confirmed Elevated shirley er enzymes level (869168965) Problem Fatty liver (K76.0) Active confirmed Fatty liver (879184314) Problem СЕРГЕЙ (obstructive sleep apnea) (G47.33) Active confirmed Obstructive sle ep apnea syndrome (04740099) Problem BMI 40.0-44.9, adult (Z68.41) Active confirmed 741967020 Problem Gastroesophageal reflux disease without esophagitis (K21.9) Active confirmed Gastroesophagea l reflux disease without esophagitis (398993161) Problem Type 2 diabetes mellitus without complication, unspecified whether computer terminal operator insulin use (E11.9) Active confirmed 60145994 Problem Mild intermittent asthma without complication (J45.20) Active confirmed 443262320 Problem Gastroesophageal reflux disease, unspecified whether esophagitis present (K21.9) Active confirmed 367740192 Problem PCOS (polycystic ovarian syndrome) (E28.2) Active confirmed Polycystic ovar y syndrome (disorder) (686660201) Problem High blood pressure determined by examination (I10) Active confirmed Essential hypertension (00792904) Problem Anemia due to vitamin B12 deficiency, 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) Active confirmed 95878480 Problem Type 2 diabetes mellitus with hyperglycemia, without long-term current use of insulin (E11.65) Active confirmed 36758541 Problem Mass of left axilla (R22.32) Active confirmed 368430854204087365 Problem GERD without esophagitis (K21.9) Active confirmed Gastroesophagea l reflux disease (127301901) Problem Memory changes (R41.3) Active confirmed Amnesia (47622334) Problem Gallstones (K80.20) Active confirmed Gallstones (729607422) Problem Lipid screening (Z13.220) Active confirmed 932912238 Problem Difficulty concentrating (R41.840) Active confirmed 17960712 Problem Infertility, female (N97.9) Active confirmed Female infert ility (0108630) VITAL SIGNS Heart Rate 101 /min 12/25/2024 Oximetry 97 % 12/25/2024 Blood pressure diastolic 82 mm Hg 12/25/2024 Height 64 in 12/25/2024 Blood pressure systolic 126 mm Hg 12/25/2024 Weight 196.8 lbs 12/25/2024 BMI 33.78 kg/m2 12/25/2024 Encounters Encounter Location Date Provider Diagnosis [facility] [address] [place] [address] 06/29/2024 NEHEMIAS BOURNE [facility] [address] [place] [address] 02/22/2024 NEHEMIAS BOURNE GERD without esophag itis K21.9 ; Hypothyroidism, unspecified type E03.9 ; Type 2 diabetes mellitus with hyperglycemia E11.65 ; Gastroesophageal reflux disease without esophagitis K21.9 ; Mixed hyperlipidemia E78.2 ; Infertility, female N97.9 ; Seasonal allergies J30.2 ; Acquired hypothyroidism E03.9 and Elevated liver enzymes R74.8 [facility] [address] [place] [address] 07/11/2024 NEHEMIAS BOURNE GERD without esophag itis K21.9 ; Wellness examination Z00.00 ; Type 2 diabetes mellitus with hyperglycemia E11.65 ; Gastroesophageal reflux disease without esophagitis K21.9 ; Mixed hyperlipidemia E78.2 ; Infertility, female N97.9 ; Seasonal allergies J30.2 ; Encounter for immunization Z23 ; Pain in right hip M25.551 and Pain in left hip M25.552 [facility] [address] [place] [address] 09/12/2024 DOUGLAS COLE Close exposure to 2019-nCoV Z20.822 ; RSV (respiratory syncytial virus infection) B33.8 ; RSV exposure Z20.828 and Acute cough R05.1 [facility] [address] [place] [address] 12/25/2024 NEHEMIAS BOURNE GERD without esophag itis K21.9 ; Psoriatic arthritis L40.50 ; Mixed hyperlipidemia E78.2 ; Infertility, female N97.9 ; Seasonal allergies J30.2 ; Pain in right hip M25.551 ; Pain in left hip M25.552 ; Difficulty concentrating R41.840 and Hyperglycemia R73.9 [facility] [address] [place] [address] 05/18/2024 NEHEMIAS [facility] [address] [place] [address] 07/07/2024 NEHEMIAS BOURNE [address] [facility] [address] [place] [address] 07/11/2024 NEHEMIAS BOURNE [address] [facility] [address] [place] [address] 09/[facility] [address] [place] [address] 01/02/2025 NEHEMIAS BOURNE Need for hepatitis B screening test Z11.59 and Immunity to measles, mumps, and rubella determined by serologic test Z01.84 [facility] [address] [place] [address] 01/16/2025 [facility] [address] [place] [address] 03/10/2024 NEHEMIAS BOURNE [address] [facility] [address] [place] [address] 04/12/2024 NEHEMIAS BOURNE [address] [facility] [address] [place] [address] 05/18/2024 NEHEMIAS BOURNE [address] [facility] [address] [place] [address] 06/23/2024 NEHEMIAS BOURNE [address] [facility] [address] [place] [address] 07/20/2024 NEHEMIAS BOURNE [address] [facility] [address] [place] [address] 08/23/2024 NEHEMIAS BOURNE [address] [facility] [address] [place] [address] 09/12/2024 NEHEMIAS BOURNE [address] [facility] [address] [place] [address] 09/27/2024 NEHEMIAS BOURNE [address] [facility] [address] [place] [address] 10/30/2024 NEHEMIAS BOURNE [address] [facility] [address] [place] [address] 01/04/2025 NEHEMIAS BOURNE Encounter for genera l adult medical examination without abnormal findings Z00.[address] [facility] [address] [place] [address] 01/08/2025 NEHEMIAS BOURNE [address] [facility] [address] [place] [address] 01/09/2025 NEHEMIAS BOURNE [address] [facility] [address] [place] [address] 01/15/2025 NEHEMIAS BOURNE Encounter for genera l adult medical examination without abnormal findings Z00.[address] [facility] [address] [place] [address] 01/15/2025 NEHEMIAS SINGHNER ASSESSMENTS Encounter Date Diagnosis Assessment Notes Treatment Notes Treatment Clinical Notes Section Notes 02/22/2024 GERD without esophagitis (ICD-10 - K21.9) [...] Dictation was accomplished with the use of Waveseer voice recognition software, prone to medical misidentifications [...] general surgical care and bariatric surgery at [phone]. Will fill it out and fax over. [...] is unsure any further information. #Referring to [facility] for psoriasis. Also has rash of [...] with results of x-ray in the meantime. [facility] in the meantime as well. Patient [...] log exercise and discussed fitness Apps like YOHO which can help keep log off calories [...] Dictation was accomplished with the use of Waveseer voice recognition software, prone to medical misidentifications [...] general surgical care and bariatric surgery at [phone]. Will fill it out and fax over. [...] is unsure any further information. #Referring to [facility] for psoriasis. Also has rash of [...] with results of x-ray in the meantime. [facility] in the meantime as well. Patient [...] log exercise and discussed fitness Apps like myfitnesspal which can help keep log off calories [...] Dictation was accomplished with the use of Waveseer voice recognition software, prone to medical misidentifications [...] Dictation was accomplished with the use of Waveseer voice recognition software, prone to medical misidentifications [...] Dictation was accomplished with the use of Waveseer voice recognition software, prone to medical misidentifications [...] still on pureed diet, following with a logistics intern, and surgeon. Pleased with progress overall. Taking [...] with improvement in joint pain. #Referring to [facility] for psoriasis. Prescribed clobetasol and fluocinolone [...] admits to some inattentiveness. Given information for [facility] Follow-up in [...] Dictation was accomplished with the use of Waveseer voice recognition software, prone to medical misidentifications [...] still on pureed diet, following with a logistics intern, and surgeon. Pleased with progress overall. Taking [...] with improvement in joint pain. #Referring to [facility] for psoriasis. Prescribed clobetasol and fluocinolone [...] admits to some inattentiveness. Given information for [facility] Follow-up in [...] Dictation was accomplished with the use of Waveseer voice recognition software, prone to medical misidentifications and grammatical errors. This is unintentional and the practitioner does try to identify and correct these, but some could still be present. Please do not hesitate to contact practitioner for clarification. 01/02/2025 Need for hepatitis B screening test (ICD-10 - Z11.59) 01/04/2025 Encounter for general adult medical examination without abnormal findings (ICD-10 - Z00.00) 01/15/2025 Encounter for general adult medical examination without abnormal findings (ICD-10 - Z00.00) 01/02/2025 Immunity to measles, mumps, and rubella determined by serologic test (ICD-10 - Z01.84) 12/25/2024 Mixed hyperlipidemia (ICD-10 - E78.2) # Patient had bariatric surgery with the gastric sleeve December 2024, doing really well. Last visit patient's weight 224, today 196. Taking B vitamins, still on pureed diet, following with a logistics intern, and surgeon. Pleased with progress overall. Taking [...] with improvement in joint pain. #Referring to [facility] for psoriasis. Prescribed clobetasol and fluocinolone [...] admits to some inattentiveness. Given information for [facility] Follow-up in [...] Dictation was accomplished with the use of Stadionauton voice recognition software, prone to medical misidentifications [...] Dictation was accomplished with the use of Waveseer voice recognition software, prone to medical misidentifications [...] general surgical care and bariatric surgery at [phone]. Will fill it out and fax over. [...] is unsure any further information. #Referring to [facility] for psoriasis. Also has rash of [...] with results of x-ray in the meantime. [facility] in the meantime as well. Patient [...] log exercise and discussed fitness Apps like YOHO which can help keep log off calories [...] Dictation was accomplished with the use of Waveseer voice recognition software, prone to medical misidentifications [...] Dictation was accomplished with the use of Waveseer voice recognition software, prone to medical misidentifications [...] Dictation was accomplished with the use of Waveseer voice recognition software, prone to medical misidentifications [...] Dictation was accomplished with the use of Waveseer voice recognition software, prone to medical misidentifications [...] general surgical care and bariatric surgery at [phone]. Will fill it out and fax over. [...] is unsure any further information. #Referring to [facility] for psoriasis. Also has rash of [...] with results of x-ray in the meantime. [facility] in the meantime as well. Patient [...] log exercise and discussed fitness Apps like YOHO which can help keep log off calories [...] Dictation was accomplished with the use of [employer] voice recognition software, prone to medical misidentifications [...] Dictation was accomplished with the use of [employer] voice recognition software, prone to medical misidentifications [...] still on pureed diet, following with a logistics intern, and surgeon. Pleased with progress overall. Taking [...] with improvement in joint pain. #Referring to [facility] for psoriasis. Prescribed clobetasol and fluocinolone [...] admits to some inattentiveness. Given information for [facility] Follow-up in [...] Dictation was accomplished with the use of [employer] voice recognition software, prone to medical misidentifications [...] still on pureed diet, following with a logistics intern, and surgeon. Pleased with progress overall. Taking [...] with improvement in joint pain. #Referring to [facility] for psoriasis. Prescribed clobetasol and fluocinolone [...] admits to some inattentiveness. Given information for [facility] Follow-up in [...] Dictation was accomplished with the use of [employer] voice recognition software, prone to medical misidentifications [...] general surgical care and bariatric surgery at [phone]. Will fill it out and fax over. [...] is unsure any further information. #Referring to [facility] for psoriasis. Also has rash of [...] with results of x-ray in the meantime. [facility] in the meantime as well. Patient [...] log exercise and discussed fitness Apps like YOHO which can help keep log off calories [...] Dictation was accomplished with the use of [employer] voice recognition software, prone to medical misidentifications [...] Dictation was accomplished with the use of [employer] voice recognition software, prone to medical misidentifications [...] Dictation was accomplished with the use of [employer] voice recognition software, prone to medical misidentifications [...] general surgical care and bariatric surgery at [phone]. Will fill it out and fax over. [...] is unsure any further information. #Referring to [facility] for psoriasis. Also has rash of [...] with results of x-ray in the meantime. [facility] in the meantime as well. Patient [...] log exercise and discussed fitness Apps like [employer] which can help keep log off calories [...] Dictation was accomplished with the use of [employer] voice recognition software, prone to medical misidentifications [...] still on pureed diet, following with a logistics intern, and surgeon. Pleased with progress overall. Taking [...] with improvement in joint pain. #Referring to [facility] for psoriasis. Prescribed clobetasol and fluocinolone [...] admits to some inattentiveness. Given information for [facility] Follow-up in [...] Dictation was accomplished with the use of [employer] voice recognition software, prone to medical misidentifications [...] still on pureed diet, following with a logistics intern, and surgeon. Pleased with progress overall. Taking [...] with improvement in joint pain. #Referring to [facility] for psoriasis. Prescribed clobetasol and fluocinolone [...] admits to some inattentiveness. Given information for [facility] Follow-up in [...] Dictation was accomplished with the use of [employer] voice recognition software, prone to medical misidentifications [...] general surgical care and bariatric surgery at [phone]. Will fill it out and fax over. [...] is unsure any further information. #Referring to [facility] for psoriasis. Also has rash of [...] with results of x-ray in the meantime. [facility] in the meantime as well. Patient [...] log exercise and discussed fitness Apps like YOH[employer] which can help keep log off calories [...] Dictation was accomplished with the use of [employer] voice recognition software, prone to medical misidentifications [...] Dictation was accomplished with the use of [employer] voice recognition software, prone to medical misidentifications [...] Dictation was accomplished with the use of [employer] voice recognition software, prone to medical misidentifications [...] general surgical care and bariatric surgery at [phone]. Will fill it out and fax over. [...] is unsure any further information. #Referring to [facility] for psoriasis. Also has rash of [...] with results of x-ray in the meantime. [facility] in the meantime as well. Patient [...] log exercise and discussed fitness Apps like [employer] which can help keep log off calories [...] Dictation was accomplished with the use of [employer] voice recognition software, prone to medical misidentifications [...] still on pureed diet, following with a logistics intern, and surgeon. Pleased with progress overall. Taking [...] with improvement in joint pain. #Referring to [facility] for psoriasis. Prescribed clobetasol and fluocinolone [...] to some inattentiveness. Given information for [facility] Follow-up in [...] Dictation was accomplished with the use of [employer] voice recognition software, prone to medical misidentifications [...] still on pureed diet, following with a logistics intern, and surgeon. Pleased with progress overall. Taking [...] with improvement in joint pain. #Referring to [facility] for psoriasis. Prescribed clobetasol and fluocinolone [...] admits to some inattentiveness. Given information for [facility] Follow-up in [...] Dictation was accomplished with the use of [employer] voice recognition software, prone to medical misidentifications [...] general surgical care and bariatric surgery at [phone]. Will fill it out and fax over. [...] is unsure any further information. #Referring to [facility] for psoriasis. Also has rash of [...] with results of x-ray in the meantime. [facility] in the meantime as well. Patient [...] log exercise and discussed fitness Apps like Y[employer] which can help keep log off calories [...] Dictation was accomplished with the use of [employer] voice recognition software, prone to medical misidentifications [...] Dictation was accomplished with the use of [employer] voice recognition software, prone to medical misidentifications [...] general surgical care and bariatric surgery at [phone]. Will fill it out and fax over. [...] is unsure any further information. #Referring to [facility] for psoriasis. Also has rash of [...] with results of x-ray in the meantime. [facility] in the meantime as well. Patient [...] log exercise and discussed fitness Apps like Y[employer] which can help keep log off calories [...] Dictation was accomplished with the use of [employer] voice recognition software, prone to medical misidentifications [...] 09/24/2021 HEMOGLOBIN A1C 09/24/2021 LIPID PANEL 09/24/2021 MMR (MEASLES, MUMPS, RUBELLA) IGG TITER 01/02/2025 URINALYSIS W/REFLEX CULTURE 09/24/2021 VARICELLA ANTIBODY, IGG 01/02/2025 MRI Abdomen w Contrast 04/12/2023 XR Foot 3+ Views LT 09/27/2020 LIPID PANEL, STANDARD 11/11/2021 LIPID PANEL, STANDARD 12/25/2024 LIPID PANEL, STANDARD 12/10/2023 LIPID PANEL, STANDARD 05/01/2022 LIPID PANEL, STANDARD 02/22/2024 MICROALBUMIN, RANDOM URINE (W/CREATININE ) 05/01/2022 COMPREHENSIVE METABOLIC PANEL 02/22/2024 COMPREHENSIVE METABOLIC PANEL 05/01/2022 COMPREHENSIVE METABOLIC PANEL 12/25/2024 COMPREHENSIVE METABOLIC PANEL 12/10/2023 CBC (INCLUDES DIFF/PLT) 12/10/2023 CBC (INCLUDES DIFF/PLT) 12/25/2024 CBC (INCLUDES DIFF/PLT) 05/01/2022 CBC (INCLUDES DIFF/PLT) 02/22/2024 URINALYSIS, COMPLETE 05/01/2022 URINALYSIS, COMPLETE 02/22/2024 URINALYSIS, COMPLETE 12/10/2023 URINALYSIS, COMPLETE 12/25/2024 HEMOGLOBIN A1c 12/25/2024 HEMOGLOBIN A1c 12/10/2023 HEMOGLOBIN A1c 11/11/2021 HEMOGLOBIN A1c 05/01/2022 HEMOGLOBIN A1c 02/22/2024 VITAMIN B12 03/11/2023 VITAMIN B12 12/25/2024 T4, FREE 03/11/2023 TSH 03/11/2023 TSH 12/10/2023 TSH 02/22/2024 VITAMIN D,25-OH,TOTAL,IA 12/25/2024 MR Abdomen W WO 04/16/2023 HEPATITIS B SURFACE ANTIBODY 01/02/2025 US Abdomen 03/11/2023 LYME AB SCREEN 06/11/2023 URINE HCG QUAL 12/14/2022 US Liver 03/11/2023 TSH+T4F+T3Free 12/25/2024 PPC Hemoglobin A1C 12/25/2024 Future Test Test Name Order Date ALKALINE PHOSPHATASE 02/05/2021 ALT (SGPT) 02/05/2021 AST (SGOT) 02/05/2021 HEMOGLOBIN A1C 02/05/2021 Next Appt Details Provider Name:NEHEMIAS BOURNE, 07/18/2025 08:00:00 AM, [address], [place], [address], Insurance Providers Payer Name Payer Address Payer Phone Subscriber Number Group Number Insured Name Patient Relationship to Insured Coverage Start Date Coverage End Date [facility] [address] [place] [address] [id number] CODY OREILLY Self - patient is the insured MEDICAL (GENERAL) HISTORY Medical History History ICD Code Diabetes mellitus with no complication E 11.9 Seasonal allergies J30.2 Hyperlipidemia, mild E78.5 GERD without esophagitis K21.9 Vitamin D deficiency E55.9 Psoriatic arthritis L40.50 Surgical History Surgery Date(Month/Year) egg retrevial 11/2023 gastric sleeve 12/07/24
--- OUTSIDE RECORDS SUMMARY | 2025-01-16 15:28 | XMS_ITS ---
Author Organization [facility] Address [address] [place] [address] Care Team Providers Care Lead Vulcanizing Operator Name Role Phone NEHEMIAS BOURNE Unavailable [phone] REASON FOR VISIT Labs Encounters Encounter Location Date Provider Diagnosis [address] [address] 01/15/2025 NEHEMIAS BOURNE Encounter for genera l adult medical examination without abnormal findings Z00.00 ASSESSMENTS Encounter Date Diagnosis Assessment Notes Treatment Notes Treatment Clinical Notes Section Notes 01/15/2025 Encounter for general adult medical examination without abnormal findings (ICD-10 - Z00.00) PLAN OF TREATMENT Pending Test Test Name Order Date CBC (H/H, RBC, INDICES, WBC, PLT) 2024 PROCALCITONIN 01/15/2025 Next Appt Details Provider Name:NEHEMIAS BOURNE, 07/18/2025 08:00:00 AM, [address] [facility], [place], [address], Progress Notes * GREER BIBCLARKDOB:[birth year] (34 yo F)Acc No.[id number]:01/15/2025 Patient:??CODY BUTTERFIELD :1990?Age:34 Y?Sex:Fe male Address:[address] [place] [address], [place] [address] Subjective: * Chief Complaints: * ?Labs * Medical History:?? * Surgical History:?? * Hospitalization/Major Diagno stic Procedure:?? * Medications:?? Objective: Assessment: * Assessment: 1.??Encounter for general ad ult medical examination without abnormal findings - Z00.00?? Plan: * Treatment: ?LAB: PROCALCITONIN* JOHANNE MARION 01/15/2025 09: 32:47 AM > Labs faxed [phone] * Procedure Codes:?? * true * Date:??
--- OUTSIDE RECORDS SUMMARY | 2025-01-16 15:28 | XMS_ITS ---
Author Organization [facility] Address [address] [place] [address] Care Team Providers Care Mud Jack Nozzle Worker Name Role Phone BRYAN BOURNEY Unavailable [phone] REASON FOR VISIT Labs Encounters Encounter Location Date Provider Diagnosis [address] [address] 01/15/2025 NEHEMIAS BOURNE PLAN OF TREATMENT Next Appt Details Provider Name:NEHEMIAS BOURNE, 07/18/2025 08:00:00 AM, [address], [place], [address], Progress Notes * BIB BUTTERFIELDCLARKDOB:[birth year] (34 yo F)Acc No.[id number]:01/15/2025 Patient:??CODY BUTTERFIELD :1990?Age:34 Y?Sex:Fe male Address:[address] [place] [address] Subjective: * Chief Complaints: * ?Labs * Medical History:?? * Surgical History:?? * Hospitalization/Major Diagno stic Procedure:?? * Medications:?? Objective: Assessment: Plan: * Treatment: * Procedure Codes:?? * true * Date:??
--- OUTSIDE RECORDS SUMMARY | 2025-01-16 15:28 | XMS_ITS ---
Author Organization [facility] Address [address] [place] [address] Care Team Providers Care Sheet Rock Applicator Name Role Phone NEHEMIAS BOURNE Unavailable [phone] REASON FOR VISIT Lab review Encounters Encounter Location Date Provider Diagnosis [facility] [address] [place] [address] 01/16/2025 NEHEMIAS BOURNE PLAN OF TREATMENT Next Appt Details Provider Name:NEHEMAIS BOURNE, 07/18/2025 08:00:00 AM, [address], [place], [address], Progress Notes * CODY BUTTERFIELDDOB:[birth year] (34 yo F)Acc No.[id number]:01/16/2025 Patient:??GREER BIBCLARK :1990?Age:34 Y?Sex:Fe male Address:[address] [place] [address] * true * Date:??
== END 2025-01-16 14:15 | disposition home or self-care (01) ==
LOC: HO.HMGCX 14:14
PROVIDERS: PCP Internal Medicine; Visit Provider Advanced Practice Midwife
DX: Z30.431 Encounter for routine checking of intrauterine contraceptive device (principal); N92.6 Irregular menstruation, unspecified
CPT/HCPCS: 76830; 76856

== ENCOUNTER → 2025-01-16 14:20 | Outpatient (BNV) | payer OTHER, SELFPAY | PROVIDERS: PCP Internal Medicine; Visit Provider Radiology Diagnostic Radiology | DX: N92.6 Irregular menstruation, unspecified (principal) | CPT/HCPCS: 76830; 76856 ==

== ENCOUNTER 2025-02-07 12:16 | Outpatient (AMB) | payer OTHER, SELFPAY ==
--- NOTE | 2025-02-07 12:17 | MHC.OFFVIS ---
Intake Visit Reasons: Ultrasound Follow up Tactical Air Control Party: Tactical Air Control Party Present Allergies No Known Allergies Allergy (Verified 12/28/24 07:49) Is last menstrual period known: Yes HPI Comments Details: Tele Health Visit Total time I personally spent on visit and management today: 17 minutes. Time spent included review of pertinent office notes in the electronic health record; review of laboratory and imaging results; review of personal family medical history; discussing diagnosis and plan of care with the patient; documenting the encounter in the EMR. Patient presents to discuss: Follow up ultrasound results, history of irregular bleeding and recent IUD insertion 11/29/2024 about 1 week prior to her bariatric surgery. She reports approximately 30+ lb weight loss. She reports spotting episodes up to 3 weeks of brown bled. Some cramping with her cycle, not happy with bleeding daily. [facility] Medical History IUD check up Irregular bleeding IUD (intrauterine device) in place Diabetes mellitus Family History Mother Diabetes Father Diabetes Hypertension Kidney failure Maternal Aunt Colon cancer Social History Household Members: Significant Other Alcohol intake: current Alcohol intake frequency: holidays/special occasions only Patient Tobacco Use Status: Never used Tobacco Sexual orientation: Straight/Heterosexual Gender identity: Female Female Reproductive History Menstrual Age of Menarche: 8 Review of Systems Const All systems reviewed & are unremarkable except as noted in HPI and below Endo Reports no additional complaints Physical Exam Const General: cooperative, healthy appearing and no acute distress Psych Appearance: well kempt Attitude: cooperative Thought process: Normal thought process present Telehealth Telehealth Telehealth Platform: Little1 Location of provider rendering services: practice address Location of patient: address on file Patient Identification confirmed using: Name, : Yes Telehealth method: video Patient verbally consented to treatment: Yes Patient verbally consented to billing insurance company: Yes Patient informed of any privacy concerns related to visit: Yes Results Reviewed Results Reviewed: [facility] [address] [place] [address] [place] [address] Ultrasound Report Signed Patient: Evan Andrew MR#: [id number] : 1990 Acct:[id number] Age/Sex: 34 / F ADM Date: 01/16/25 Loc: HO.HMGCX Attending Dr: Suzanne Coronado CNM Ordering Physician: Suzanne Coronado CNM Date of Service: 01/16/25 Procedure(s): US pelvic and transvaginal Accession Number(s): [id number] cc: Freddy Walton MD; Suzanne Coronado CNM~ EXAMINATION: US PELVIS TRANSABDOMINAL AND TRANSVAGINAL HISTORY: N92.6 - Irregular menstruation, unspecified COMPARISON: Comparison is made to the prior examination dated 01/06/2022. TECHNIQUE: Transabdominal and endovaginal real-time 2D shine-scale ultrasound was performed. FINDINGS: Uterus: The uterus is normal in size, measuring 8.6 x 3.7 x 5.4 cm. Myometrium has a normal echotexture. No fibroids are identified. Endometrium: The endometrial stripe measures 5 mm in thickness. An IUD is noted in appropriate position in the endometrial cavity. Right ovary: The right ovary measures 4.5x 3.0 x 2.7 cm. The right ovary is normal in size and echotexture. Left ovary: The left ovary measures 4.0 x 2.7 x 2.5 cm. The left ovary is normal in size and echotexture. Pelvic fluid: none. US/US pelvic and transvaginal IMPRESSION: Unremarkable pelvic ultrasound. IUD in appropriate position in the endometrial cavity. Electronically signed by: Ephraim Rider MD 01/16/2025 03:37 PM EDT Dictated By: Ephraim Rider MD Signed By: <Electronically signed by Ephriam Rider MD in OV> 01/16/25 1537 DD/ 1441 TD/TT: 01/16/25 1458 Public Speaking Teacher: Assessment & Plan Assessment & Plan (1) Irregular bleeding: Code(s): N92.6 - Irregular menstruation, unspecified Category: Medical Plan: Discussed: Anticipatory guidance for bleeding pattern with Mirena IUD, plan to observe for now and report any heavier prolonged episodes. Check in in about 1 month patient to call when ready. The patient expressed understanding and agreement with the plan of care. All of her questions and concerns were addressed to the best of my ability. (2) IUD surveillance: Code(s): Z30.431 - Encounter for routine checking of intrauterine contraceptive device Plan Discussed: Ultrasound findings-IMPRESSION: Unremarkable pelvic ultrasound. IUD in appropriate position in the endometrial cavity. The patient expressed understanding and agreement with the plan of care. All of her questions and concerns were addressed to the best of my ability. This note is constructed using voice recognition software. While every effort has been made to ensure accuracy, gas leak inspector helper errors may have been included. Coding Level of Care Code Tele Est Pt Level 3 (39342) Diagnoses Irregular bleeding N92.6 IUD surveillance Z30.431
--- OUTSIDE RECORDS SUMMARY | 2025-02-07 12:53 | XMS_ITS | Patient Health Record ---
Author Organization [facility] [address] [address] Address [address] [place] [address] Care Team Providers Care Salvage Cutter Name Role Phone NEHEMIAS BOURNE Unavailable [phone] DOUGLAS DOUGLAS Unavailable [phone] Allergies Allergen (clinical drug ingredient) Drug/Non Drug Allergy documented on EMR Reaction Allergy Type Onset Date Status Feathers feathers (uncoded) Unknown Allergy A ctive grass (uncoded) Unknown Allergy Acti ve dulaglutide Trulicity rash Drug Allergy Activ e Dust Mites Unknown Allergy Active Pollen Pollen Unknown Allergy Active Results Component Value Reference Range Notes QuantiFERON-TB Gold Plus-[id number] Reviewed date:01/18/2025 07:54:16 AM Interpretation: Performing Lab:[facility] Acevedo, [address] [place] [address], [place], Phone - [phone], Director - Jassi Notes/Report: QuantiFERON Incubation Incubation performed. QuantiFERON-TB Gold Plus Negative Negative No response to M tuberculosis antigens detected. Infection with M tuberculosis is unlikely, but high risk individuals should be considered for additional testing (ATS/IDSA/CDC Clinical Practice Guidelines, 2017). The reference range is an Antigen minus Nil result of <0.35 IU/mL. Chemiluminescence immunoassay methodology QuantiFERON Criteria QuantiFERON-TB Gold Plus is a qualitative indirect test for M tuberculosis infection (including disease) and is intended for use in conjunction with risk assessment, radiography, and other medical and diagnostic evaluations. The QuantiFERON-TB Gold Plus result is determined by subtracting the Nil value from either TB antigen (Ag) value. The Mitogen tube serves as a control for the test. QuantiFERON TB1 Ag Value 0.07 QuantiFERON TB2 Ag Value 0.05 QuantiFERON Nil Value 0.04 QuantiFERON Mitogen Value 7.28 Hepatitis B Surf Ab Quant-00 [id number] Reviewed date:01/18/2025 07:54:16 AM Interpretation: Performing Lab:[facility]asbir Acevedo, [address] [facility], [place], Phone - [phone], Director - Jassi Notes/Report: Hepatitis B Surf Ab Quant 30.7 Immunity>10 mIU /mL Status of Immunity Anti-HBs Level Inconsistent with Immunity 0.0 - 10.0 Consistent with Immunity >10.0 Comp. Metabolic Panel (14)-3 Reviewed date:07/05/2024 08:09:41 AM Interpretation: Performing Lab:Jasbir Acevedo, [address] [facility], [place], Phone - [phone], Director - Kayleey Notes/Report: Glucose 150 70-99 mg/dL BUN 12 [...] 0-40 IU/L ALT (SGPT) 52 0-32 IU/L Lipid Panel-[id number] Reviewed date:07/05/2024 08:01:37 AM Interpretation: Performing Lab:Jasbir Acevedo, [address] [facility], [place], Phone - [phone], Director - MDYuridiay Notes/Report: Cholesterol, Total 140 100-199 mg/dL Triglycerides 119 0-149 mg/dL HDL Cholesterol 53 >39 mg/dL VLDL Cholesterol Alexis 21 5-40 mg/dL LDL Chol Calc (NIH) 66 0-99 mg/dL Hgb A1c with eAG Estimation- [id number] Reviewed date:07/05/2024 08:01:37 AM Interpretation: Performing Lab:[facility] [place], [address] [place] [address], [place], Phone - [phone], Director - Kayleey Notes/Report: Hemoglobin A1c 5.5 4.8-5.6 % . Prediabetes: 5.7 - 6.4 Diabetes: >6.4 Glycemic control for adults with diabetes: <7.0 Estim. Avg Glu (eAG) 111 CBC With Differential/Platel et-[id number] Reviewed date:07/05/2024 08:01:37 AM Interpretation: Performing Lab:[facility] [place], [address] [facility], Phone - [phone], Director - Jassi Notes/Report: WBC 8.3 3.4-10.8 x10E3/uL RBC 4.26 3.77-5.28 x10E6/uL Hemoglobin 12.4 11.1-15.9 g/dL Hematocrit 37.8 34.0-46.6 % MCV 89 79-97 fL MCH 29.1 26.6-33.0 pg MCHC 32.8 31.5-35.7 g/dL RDW 13.9 11.7-15.4 % Platelets 307 150-450 x10E3/uL Neutrophils 70 Not Estab. % Lymphs 20 Not Estab. % Monocytes 6 Not Estab. % Eos 3 Not Estab. % Basos 1 Not Estab. % Neutrophils (Absolute) 5.8 1.4-7.0 x10E3/uL Lymphs (Absolute) 1.7 0.7-3.1 x10E3/uL Monocytes(Absolute) 0.5 0.1-0.9 x10E3/uL Eos (Absolute) 0.3 0.0-0.4 x10E3/uL Baso (Absolute) 0.0 0.0-0.2 x10E3/uL Immature Granulocytes 0 Not Estab. % Immature Grans (Abs) 0.0 0.0-0.1 x10E3/uL TSH-[id number] Reviewed date:07/05/2024 08:01:37 AM Interpretation: Performing Lab:[facility], [address] [facility], [place], Phone - [phone], Director - Kayleey Notes/Report: TSH 2.160 0.450-4.500 uIU/mL Urinalysis, Routine-[id number] Reviewed date:07/05/2024 08:01:37 AM Interpretation: Performing Lab:[facility] [address] [place] [address], Phone - [phone], Director - Jassi Notes/Report: Specific Etna 1.007 1.005-1.030 pH 6.5 5.0-7.5 Urine-Color Yellow Yellow Appearance Clear Clear WBC Esterase Negative Negative Protein Negative Negative/Trace Glucose Negative Negative Ketones Negative Negative Occult Blood Negative Negative Bilirubin Negative Negative Urobilinogen,Semi-Qn 0.2 0.2-1.0 mg/dL Nitrite, Urine Negative Negative Microscopic Examination Micr oscopic not indicated and not performed. Comp. Metabolic Panel (14-3 [id number] Reviewed date:02/19/2024 09:06:10 AM Interpretation: Performing Lab:[facility] [place], [address] [place] [address], Phone - [phone], Director - Jassi Notes/Report: Glucose 149 70-99 [...] 0-40 IU/L ALT (SGPT) 131 0-32 IU/L Lipid Panel-[id number] Reviewed date:02/19/2024 08:56:27 AM Interpretation: Performing Lab:[facility] [place], [address] [place] [address], Phone - [phone], Director - Jassi Notes/Report: Cholesterol, Total 177 100-199 mg/dL Triglycerides 121 0-149 mg/dL HDL Cholesterol 63 >39 mg/dL VLDL Cholesterol Alexis 21 5-40 mg/dL LDL Chol Calc ([facility]) 93 0-99 mg/dL CBC With Differential/Platel et-[id number] Reviewed date:02/19/2024 08:56:27 AM Interpretation: Performing Lab:[facility], [address] [place] [address], Phone - [phone], Director - MDYuridiay Notes/Report: WBC 8.2 3.4-10.8 x10E3/uL RBC 4.57 3.77-5.28 x10E6/uL Hemoglobin 13.5 11.1-15.9 g/dL Hematocrit 41.2 34.0-46.6 % MCV 90 79-97 fL MCH 29.5 26.6-33.0 pg MCHC 32.8 31.5-35.7 g/dL RDW 14.1 11.7-15.4 % Platelets 335 150-450 x10E3/uL Neutrophils 70 Not Estab. % Lymphs 21 Not Estab. % Monocytes 6 Not Estab. % Eos 2 Not Estab. % Basos 1 Not Estab. % Neutrophils (Absolute) 5.7 1.4-7.0 x10E3/uL Lymphs (Absolute) 1.7 0.7-3.1 x10E3/uL Monocytes(Absolute) 0.5 0.1-0.9 x10E3/uL Eos (Absolute) 0.2 0.0-0.4 x10E3/uL Baso (Absolute) 0.0 0.0-0.2 x10E3/uL Immature Granulocytes 0 Not Estab. % Immature Grans (Abs) 0.0 0.0-0.1 x10E3/uL TSH-[id number] Reviewed date:02/19/2024 08:56:27 AM Interpretation: Performing Lab:[facility] [place], [address] [place] [address], Phone - [phone], Director - MDJodry Notes/Report: TSH 1.470 0.450-4.500 uIU/mL Urinalysis, Complete-[id number] Reviewed date:02/19/2024 09:06:01 AM Interpretation: Performing Lab:[facility], [address] [place] [address], Phone - [phone], Director - MDYuridiay Notes/Report: Specific Etna 1.011 1.005-1.030 pH 7.5 5.0-7.5 Urine-Color Yellow Yellow Appearance Cloudy Clear WBC Esterase Trace Negative Protein 1+ Negative/Trace Glucose Negative Negative Ketones Negative Negative Occult Blood Negative Negative Bilirubin Negative Negative Urobilinogen,Semi-Qn 0.2 0.2-1.0 mg/dL Nitrite, Urine Negative Negative Microscopic Examination See below: Micr oscopic was indicated and was performed. WBC 0-5 0 - 5 /hpf RBC None seen 0 - 2 /hpf Epithelial Cells (non renal) >10 0 - 10 /hpf Casts None seen None seen /lpf Bacteria Few None seen/Few Hemoglobin [id number]-[id number] Reviewed date:02/19/2024 09:05:53 AM Interpretation: Performing Lab:[facility] [place], [address] [facility], [place], Phone - [phone], Director - [facility] Notes/Report: Hemoglobin A1c 7.5 4.8-5.6 % . Prediabetes: 5.7 - 6.4 Diabetes: >6.4 Glycemic control for adults with diabetes: <7.0 N.Meningitidis A/C/W-135/Y I gG Reviewed date:01/19/2025 10:17:42 AM Interpretation: Performing Lab:[facility], [address] [place] [address], Phone - [phone], Director - [facility] Notes/Report: N.Meningitidis Type A IgG 10.1 N.Meningitidis Type C IgG 2.9 N.Meningitids Type Y IgG 1.8 INTERPRETIVE INFORMATION: N. meningitidis A, C, W-135 and Y IgG 0.9 ug/mL or less....... Antibody concentration not protective. 1.0-2.0 ug/mL........... Equivocal. 2.1 ug/mL or greater.... Antibody to Neisseria Meningitides detected. Suggestive of protection. Responder status is determined according to the ratio of the one month post-vaccination concentration to pre-vaccination concentration of IgG antibodies to N. meningitidis (Types A, C, Y, and W-135) as follows: 1. If the one month post-vaccination concentration is less than 3.0 ug/mL, the patient is considered to be a non-responder. 2. If the one month post-vaccination concentration is greater than or equal to 3.0 ug/mL, a patient with a ratio of greater than or equal to 4 is a good responder, a ratio of 2-4 is a weak responder, and a ratio of less than 2 is considered a non-responder. This test was developed and its performance characteristics determined by [facility]. It has not been cleared or approved by the US Food and Drug Administration. This test was performed in a CLIA certified laboratory and is intended for clinical purposes. N.Meninigitidis Type W-135 IgG 1.2 T4F+T3Free Reviewed date:01/10/2025 03:37:52 PM Interpretation: Performing Lab:[facility], [facility], [place], Phone - [phone], Director - Jassi Notes/Report: Thyroxine (T-4), Serum 9.5 Reference Range: Adults: 4.2 - 13.0 Free T-3 3.1 Reference Range: >=20y: 2.0 - 4.4 Triiodothyronine (T-3), Serum 111 Reference Range: Adults: 55 - 170 Free Thyroxine 1.44 Reference Range: >=20y: 0.82 - 1.77 Hemoglobin A1c Reviewed date:01/10/2025 03:37:52 PM Interpretation: Performing Lab:[facility], [facility], [place], Phone - [phone], Director - Jassi Notes/Report: Hemoglobin A1c 5.0 Reference Range: [place] Diabetes Association (ADA) Guidelines: <5.7: Decreased risk for diabetes 5.7 - 6.4: Increased risk for diabetes >6.4: Ongoing Hyperglycemia of any cause <7.0: Glycemic control for adults with diabetes Estimated Average Glucose 97 Comp. Metabolic Panel (14)-3 Reviewed date:01/16/2025 08:50:46 AM Interpretation: Performing Lab:[facility], [facility], [place], Phone - [phone], Director - Jassi Notes/Report: Glucose 107 70-99 mg/dL BUN 11 [...] 0-40 IU/L ALT (SGPT) 18 0-32 IU/L Lipid Panel-[id number] Reviewed date:01/16/2025 08:50:46 AM Interpretation: Performing Lab:[facility], [address] [place] [address], [place], Phone - [phone], Director - Jassi Notes/Report: Cholesterol, Total 185 100-199 mg/dL Triglycerides 110 0-149 mg/dL HDL Cholesterol 48 >39 mg/dL VLDL Cholesterol Alexis 20 5-40 mg/dL LDL Chol Calc (NIH) 117 0-99 mg/dL Vitamin D, 88-Duveylu-[id number] Reviewed date:01/10/2025 03:37:29 PM Interpretation: Performing Lab:[facility], [address] [place] [address], [place], Phone - [phone], Director - Jassi Notes/Report: Vitamin D, 25-Hydroxy 45.4 30.0-100.0 ng/mL Vitamin D deficiency has been defined by the [place] of [employer] and an Endocrine Society practice guideline as a level of serum 25-OH vitamin D less than 20 ng/mL (1,2). The Endocrine Society went on to further define vitamin D insufficiency as a level between 21 and 29 ng/mL (2). 1. IOM ([place] of [employer]). 2010. Dietary reference intakes for calcium and D. [place]: The National Academies Press. 2. Phillip MF, Hazel NC, Sarah ADAN, et al. Evaluation, treatment, and prevention of vitamin D deficiency: an Endocrine Society clinical practice guideline. JCEM. 2010; 96(7):1911-30. CBC With Differential/Platel et-[id number] Reviewed date:01/10/2025 03:40:05 PM Interpretation: Performing Lab:[facility], [facility], Phone - [phone], Director - MEJodry Notes/Report: WBC 4.4 3.4-10.8 x10E3/uL RBC 4.45 3.77-5.28 x10E6/uL Hemoglobin 13.1 11.1-15.9 g/dL Hematocrit 39.5 34.0-46.6 % MCV 89 79-97 fL MCH 29.4 26.6-33.0 pg MCHC 33.2 31.5-35.7 g/dL RDW 14.5 11.7-15.4 % Platelets 208 150-450 x10E3/uL Neutrophils 54 Not Estab. % Lymphs 33 Not Estab. % Monocytes 9 Not Estab. % Eos 3 Not Estab. % Basos 1 Not Estab. % Neutrophils (Absolute) 2.4 1.4-7.0 x10E3/uL Lymphs (Absolute) 1.4 0.7-3.1 x10E3/uL Monocytes(Absolute) 0.4 0.1-0.9 x10E3/uL Eos (Absolute) 0.1 0.0-0.4 x10E3/uL Baso (Absolute) 0.0 0.0-0.2 x10E3/uL Immature Granulocytes 0 Not Estab. % Immature Grans (Abs) 0.0 0.0-0.1 x10E3/uL TSH-[id number] Reviewed date:01/10/2025 03:37:52 PM Interpretation: Performing Lab:[facility] [place], [address] [facility], Phone - [phone], Director [facility] Notes/Report: TSH 1.270 0.450-4.500 uIU/mL Urinalysis, Complete-[id number] Reviewed date:01/16/2025 08:50:46 AM Interpretation: Performing Lab:[facility] [place], [address] [facility], Phone - [phone], Director - MDJodry Notes/Report: Specific Etna 1.020 1.005-1.030 pH 5.5 5.0-7.5 Urine-Color Yellow Yellow Appearance Clear Clear WBC Esterase 1+ Negative Protein 1+ Negative/Trace Glucose Negative Negative Ketones 1+ Negative Occult Blood 3+ Negative Bilirubin Negative Negative Urobilinogen,Semi-Qn 0.2 0.2-1.0 mg/dL Nitrite, Urine Negative Negative Microscopic Examination See below: Micr oscopic was indicated and was performed. WBC 11-30 0 - 5 /hpf RBC 11-30 0 - 2 /hpf Epithelial Cells (non renal) >10 0 - 10 /hpf Casts None seen None seen /lpf Crystals Present N/A Crystal Type Calcium Oxalate N/A Bacteria Few None seen/Few Vitamin [id number] Reviewed date:01/10/2025 03:37:29 PM Interpretation: Performing Lab:[facility] [place], [address] [facility], [place], Phone - [phone], Director - Jassi Notes/Report: Vitamin B12 500 348-9924 pg/mL Reason For Referral Diagnosis 1 Psoriasis, unspecifi ed (L40.9) Referral Organization [facility] KRISTYN ROBERT Referring Provider First Name NEHEMIAS Referring Provider Last Name TAYLA Referring Provider Speciality Internal M edicine Referred Provider Specialty Dermatology General Notes Rubia Figueroa 2023 09:55:51 AM > referral sent to [facility] , [address] [place] [address], [address], [place] [address], [email or web address], , Referral Priority Routine Medications Medication SIG (Take, Route, Frequency, Duration) Notes [...] for 90 Active Vitamin D3 50 MCG (1999) TAKE 1 CAPSU LE BY MOUTH EVERY [...] needed O rally Twice a day Active Immunizations Vaccine Route Administration Date Status Comme nts Tdap IM Intramuscular 07/11/2024 Administered Social History Tobacco Use: Social History Observation Description Date Details (start date - stop date) Never Smoker NA - NA Tobacco Use/Smoking Question Answer Notes Are you a nonsmoker Section Notes: medical staff services manager medical staff services manager medical staff services manager medical staff services manager See HPI medical staff services manager medical staff services manager medical staff services manager medical staff services manager medical staff services manager medical staff services manager medical staff services manager medical staff services manager medical staff services manager medical staff services manager medical staff services manager See HPI medical staff services manager medical staff services manager medical staff services manager medical staff services manager medical staff services manager medical staff services manager medical staff services manager See HPI Problems Problem Type SNOMED Code ICD Code Onset Dates Problem Status W/U Status Risk Notes Problem 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 mellitus due to underlying 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 complications (E08.9) Active confirmed Problem Hyperglycemia due to type 2 diabetes mellitus (316594585856722) Type 2 diabetes mellitus with hyperglycemia (E11.65) Active confirmed Problem 91781333 Type 2 diabetes mellitus with unspecified complications (E11.8) Active confirmed Problem Diabetes insipidus (8685922454) Diabetes insipidus (E23.2) Active confirmed Problem 14298766 Vitamin D deficiency, unspecified (E55.9) Active confirmed Problem 930212897 Morbid (severe) obesity due to excess calories (E66.01) Active confirmed Problem Mixed hyperlipidemia (343424113) Mixed hyperlipidemia (E78.2) Active confirmed Problem Hyperlipidemia (15579724) Hyperlipidemia, unspecified (E78.5) Active confirmed Problem Psoriasis (2261497) Psoriasis, unspecified (L40.9) Active confirmed Problem Nasal congestion (58211792) Nasal congestion (R09.81) Active confirmed Problem 676832374 Encounter for general adult medical examination without abnormal findings (Z00.00) Active confirmed Problem 53496492 Hyperlipidemia, unspecified hyperlipidemia type (E78.5) Active confirmed Problem 237883114 Acquired hypothyroidism (E03.9) Active confirmed Problem Psoriatic arthritis (051417755) Psoriatic arthritis (L40.50) Active confirmed Problem Gallstone (528317193) Gall stones (K80.20) Active confirmed Problem 88806541 Hypothyroidism, unspecified type (E03.9) Active confirmed Problem Annual health maintenance examination (09431892) Annual physical exam (Z00.00) Active confirmed Problem 266823799 Seasonal allergi es (J30.2) Active confirmed Problem Vitamin D deficiency (14044573) Vitamin D deficiency (E55.9) Active confirmed Problem Elevated liver enzymes level (994640163) Elevated liver enzymes (R74.8) Active confirmed Problem Fatty liver (275773066) Fatty liver (K76.0) Active confirmed Problem Obstructive sleep apnea syndrome (46844190) СЕРГЕЙ (obstructive sleep apnea) (G47.33) Active confirmed Problem 106764037 BMI 40.0-44.9, adult (Z68.41) Active confirmed Problem Gastroesophageal reflux disease without esophagitis (514501808) Gastroesophageal reflux disease without esophagitis (K21.9) Active confirmed Problem 14122035 Type 2 diabetes mellitus without complication, unspecified whether exterminator insulin use (E11.9) Active confirmed Problem 819054178 Mild intermitten t asthma without complication (J45.20) Active confirmed Problem 759399885 Gastroesophageal reflux disease, unspecified whether esophagitis present (K21.9) Active confirmed Problem Polycystic ovary syndrome (disorder) (292020465) PCOS (polycystic ovarian syndrome) (E28.2) Active confirmed Problem Essential hypertension (13767340) High blood pressure determined by examination (I10) Active confirmed Problem 02203517 Anemia due to vitamin B12 deficiency, 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) Active confirmed Problem 85540572 Type 2 diabetes mellitus with hyperglycemia, without long-term current use of insulin (E11.65) Active confirmed Problem 506699246804330617 Mass of left axilla (R22.32) Active confirmed Problem Gastroesophageal reflux disease (006410380) GERD without esophagitis (K21.9) Active confirmed Problem Amnesia (31810078) Memory change s (R41.3) Active confirmed Problem Gallstones (347779289) Gallstones (K80.20) Active confirmed Problem 448920573 Lipid screening (Z13.220) Active confirmed Problem 73658216 Difficulty concentrating (R41.840) Active confirmed Problem Female infertility (9473512) Infertility, female (N97.9) Active confirmed Vital Signs Heart Rate 101 /min 12/25/2024 Oximetry 97 % 12/25/2024 Blood pressure diastolic 82 mm Hg 12/25/2024 Height 64 in 12/25/2024 Blood pressure systolic 126 mm Hg 12/25/2024 Weight 196.8 lbs 12/25/2024 BMI 33.78 kg/m2 12/25/2024 Encounters Encounter Location Date Provider Diagnosis [facility] [address] [place] [address] 02/22/2024 NEHEMIAS BOURNE GERD without esophag itis K21.9 ; Hypothyroidism, unspecified type E03.9 ; Type 2 diabetes mellitus with hyperglycemia E11.65 ; Gastroesophageal reflux disease without esophagitis K21.9 ; Mixed hyperlipidemia E78.2 ; Infertility, female N97.9 ; Seasonal allergies J30.2 ; Acquired hypothyroidism E03.9 and Elevated liver enzymes R74.[address] [facility] [address] [place], [place] 07/11/2024 NEHEMIAS BOURNE GERD without esophag itis K21.9 ; Wellness examination Z00.00 ; Type 2 diabetes mellitus with hyperglycemia E11.65 ; Gastroesophageal reflux disease without esophagitis K21.9 ; Mixed hyperlipidemia E78.2 ; Infertility, female N97.9 ; Seasonal allergies J30.2 ; Encounter for immunization Z23 ; Pain in right hip M25.551 and Pain in left hip M25.[address] [facility] [address] [place] [address] 09/12/2024 DOUGLAS DOUGLAS Close exposure to 2019-nCoV Z20.822 ; RSV (respiratory syncytial virus infection) B33.8 ; RSV exposure Z20.828 and Acute cough R05.[address] [facility] [address] [place], [place] 12/25/2024 NEHEMIAS BOURNE GERD without esophag itis K21.9 ; Psoriatic arthritis L40.50 ; Mixed hyperlipidemia E78.2 ; Infertility, female N97.9 ; Seasonal allergies J30.2 ; Pain in right hip M25.551 ; Pain in left hip M25.552 ; Difficulty concentrating R41.840 and Hyperglycemia R73.[address] [place] [address] 05/18/2024 NEHEMIAS BOURNE [facility] [address] [place] [address] 07/07/2024 NEHEMIAS BOURNE [facility] [address] [place] [address] 07/11/2024 NEHEMIAS SINGHNER [facility] [address] [place] [address] 09/12/2024 NEHEMIAS BOURNE [facility] [address] [place] [address] 01/02/2025 NEHEMIAS BOURNE Need for hepatitis B screening test Z11.59 and Immunity to measles, mumps, and rubella determined by serologic test Z01.[address] [facility] [address] [place] [address] 01/16/2025 NEHEMIAS BOURNE [facility] [address] [place] [address] 01/23/2025 NEHEMIAS BOURNE [facility] [address] [place] [address] 01/25/2025 NEHEMIAS BOURNE [facility] [address] [place] [address] 03/10/2024 NEHEMIASYasmin BOURNE [facility] [address] [place] [address] 04/12/2024 NEHEMIASYasmin BOURNE [facility] [address] [place] [address] 05/18/2024 NEHEMIASYasmin BOURNE [facility] [address] [place] [address] 06/23/2024 NEHEMIASYasmin BOURNE [facility] [address] [place] [address] 07/20/2024 NEHEMIAS BOURNE [facility] [address] [place] [address] 08/23/2024 NEHEMIAS BOURNE [facility] [address] [place] [address] 09/12/2024 NEHEMIAS BOURNE [facility] [address] [place] [address] 09/27/2024 NEHEMIASYasmin BOURNE [facility] [address] [place] [address] 10/30/2024 NEHEMIAS SINGHNER [facility] [address] [place] [address] 01/04/2025 NEHEMIAS BOURNE Encounter for genera l adult medical examination without abnormal findings Z00.00 [facility] [address] [address] 01/08/2025 NEHEMIAS BOURNE [facility] [address] [address] 01/09/2025 NEHEMIAS BOURNE [facility] [address] [address] 01/15/2025 NEHEMIAS BOURNE Encounter for genera l adult medical examination without abnormal findings Z00.00 [facility] [address] [address] 01/15/2025 NEHEMIAS BOURNE [facility] [address] [address] 01/22/2025 NEHEMIAS BOURNE Assessments Encounter Date Diagnosis (ICD Code) Assessment Notes Treatment Notes Treatment Clinical Notes [...] Dictation was accomplished with the use of [employer] voice recognition software, prone to medical misidentifications [...] general surgical care and bariatric surgery at [phone]. Will fill it out and fax over. [...] is unsure any further information. #Referring to [facility] for psoriasis. Also has rash of [...] with results of x-ray in the meantime. [facility] in the meantime as well. Patient [...] log exercise and discussed fitness Apps like [employer] which can help keep log off calories [...] Dictation was accomplished with the use of [employer] voice recognition software, prone to medical misidentifications [...] general surgical care and bariatric surgery at [phone]. Will fill it out and fax over. [...] is unsure any further information. #Referring to [facility] for psoriasis. Also has rash of [...] with results of x-ray in the meantime. [facility] in the meantime as well. Patient [...] log exercise and discussed fitness Apps like [employer] which can help keep log off calories [...] Dictation was accomplished with the use of [employer] voice recognition software, prone to medical misidentifications [...] Dictation was accomplished with the use of [employer] voice recognition software, prone to medical misidentifications [...] Dictation was accomplished with the use of [employer] voice recognition software, prone to medical misidentifications [...] still on pureed diet, following with a nail polish brush machine feeder, and surgeon. Pleased with progress overall. Taking [...] with improvement in joint pain. #Referring to [facility] for psoriasis. Prescribed clobetasol and fluocinolone [...] admits to some inattentiveness. Given information for [facility] Follow-up in July for complete physical, fasting labs prior, adjust treatment and medications as needed. All quetsions answered to patients satisfaction. Patient verbalized understanding of diagnosis and treatments explained. To call sooner prior to next visit it any questions/concerns arise. Case discussed with collaborating physician Aramis Watlon who reviewed the assessment and plan. Chart, medications, labs, vital signs reviewed. Dictation was accomplished with the use of [employer] voice recognition software, prone to medical misidentifications [...] still on pureed diet, following with a nail polish brush machine feeder, and surgeon. Pleased with progress overall. Taking [...] with improvement in joint pain. #Referring to [facility] for psoriasis. Prescribed clobetasol and fluocinolone [...] to some inattentiveness. Given information for [facility] Follow-up in July [...] Dictation was accomplished with the use of [employer] voice recognition software, prone to medical misidentifications [...] still on pureed diet, following with a nail polish brush machine feeder, and surgeon. Pleased with progress overall. Taking [...] with improvement in joint pain. #Referring to [facility] for psoriasis. Prescribed clobetasol and fluocinolone [...] admits to some inattentiveness. Given information for [facility] Follow-up in [...] Dictation was accomplished with the use of [employer] voice recognition software, prone to medical misidentifications [...] Dictation was accomplished with the use of [employer] voice recognition software, prone to medical misidentifications [...] general surgical care and bariatric surgery at [phone]. Will fill it out and fax over. [...] is unsure any further information. #Referring to [facility] for psoriasis. Also has rash of [...] with results of x-ray in the meantime. [facility] in the meantime as well. Patient [...] log exercise and discussed fitness Apps like [employer] which can help keep log off calories [...] Dictation was accomplished with the use of [employer] voice recognition software, prone to medical misidentifications [...] Dictation was accomplished with the use of [employer] voice recognition software, prone to medical misidentifications [...] Dictation was accomplished with the use of [employer] voice recognition software, prone to medical misidentifications [...] Dictation was accomplished with the use of [employer] voice recognition software, prone to medical misidentifications [...] general surgical care and bariatric surgery at [phone]. Will fill it out and fax over. [...] is unsure any further information. #Referring to [facility] for psoriasis. Also has rash of [...] with results of x-ray in the meantime. [facility] in the meantime as well. Patient [...] log exercise and discussed fitness Apps like [employer] which can help keep log off calories [...] Dictation was accomplished with the use of [employer] voice recognition software, prone to medical misidentifications [...] Dictation was accomplished with the use of [employer] voice recognition software, prone to medical misidentifications [...] still on pureed diet, following with a nail polish brush machine feeder, and surgeon. Pleased with progress overall. Taking [...] with improvement in joint pain. #Referring to [facility] for psoriasis. Prescribed clobetasol and fluocinolone [...] to some inattentiveness. Given information for [facility] Follow-up in July [...] Dictation was accomplished with the use of [employer] voice recognition software, prone to medical misidentifications [...] still on pureed diet, following with a nail polish brush machine feeder, and surgeon. Pleased with progress overall. Taking [...] with improvement in joint pain. #Referring to [facility] for psoriasis. Prescribed clobetasol and fluocinolone [...] admits to some inattentiveness. Given information for [facility] Follow-up in [...] Dictation was accomplished with the use of [employer] voice recognition software, prone to medical misidentifications [...] general surgical care and bariatric surgery at [phone]. Will fill it out and fax over. [...] is unsure any further information. #Referring to [facility] for psoriasis. Also has rash of [...] with results of x-ray in the meantime. [facility] in the meantime as well. Patient [...] log exercise and discussed fitness Apps like [employer] which can help keep log off calories [...] Dictation was accomplished with the use of [employer] voice recognition software, prone to medical misidentifications [...] Dictation was accomplished with the use of [employer] voice recognition software, prone to medical misidentifications [...] Dictation was accomplished with the use of [employer] voice recognition software, prone to medical misidentifications [...] general surgical care and bariatric surgery at [phone]. Will fill it out and fax over. [...] is unsure any further information. #Referring to [facility] for psoriasis. Also has rash of [...] with results of x-ray in the meantime. [facility] in the meantime as well. Patient [...] log exercise and discussed fitness Apps like [employer] which can help keep log off calories [...] Dictation was accomplished with the use of [employer] voice recognition software, prone to medical misidentifications [...] still on pureed diet, following with a nail polish brush machine feeder, and surgeon. Pleased with progress overall. Taking [...] with improvement in joint pain. #Referring to [facility] for psoriasis. Prescribed clobetasol and fluocinolone [...] admits to some inattentiveness. Given information for [facility] Follow-up in [...] Dictation was accomplished with the use of [employer] voice recognition software, prone to medical misidentifications [...] still on pureed diet, following with a nail polish brush machine feeder, and surgeon. Pleased with progress overall. Taking [...] with improvement in joint pain. #Referring to [facility] for psoriasis. Prescribed clobetasol and fluocinolone [...] admits to some inattentiveness. Given information for [facility] Follow-up in [...] Dictation was accomplished with the use of [employer] voice recognition software, prone to medical misidentifications [...] general surgical care and bariatric surgery at [phone]. Will fill it out and fax over. [...] is unsure any further information. #Referring to [facility] for psoriasis. Also has rash of [...] with results of x-ray in the meantime. [facility] in the meantime as well. Patient [...] log exercise and discussed fitness Apps like H[employer] which can help keep log off calories [...] Dictation was accomplished with the use of [employer] voice recognition software, prone to medical misidentifications [...] Dictation was accomplished with the use of [employer] voice recognition software, prone to medical misidentifications [...] Dictation was accomplished with the use of [employer] voice recognition software, prone to medical misidentifications [...] general surgical care and bariatric surgery at [phone]. Will fill it out and fax over. [...] is unsure any further information. #Referring to [facility] for psoriasis. Also has rash of [...] with results of x-ray in the meantime. [facility] in the meantime as well. Patient [...] log exercise and discussed fitness Apps like [employer] which can help keep log off calories [...] Dictation was accomplished with the use of [employer] voice recognition software, prone to medical misidentifications [...] still on pureed diet, following with a nail polish brush machine feeder, and surgeon. Pleased with progress overall. Taking [...] with improvement in joint pain. #Referring to [facility] for psoriasis. Prescribed clobetasol and fluocinolone [...] admits to some inattentiveness. Given information for [facility] Follow-up in [...] Dictation was accomplished with the use of [employer] voice recognition software, prone to medical misidentifications [...] still on pureed diet, following with a nail polish brush machine feeder, and surgeon. Pleased with progress overall. Taking [...] with improvement in joint pain. #Referring to [facility] for psoriasis. Prescribed clobetasol and fluocinolone [...] admits to some inattentiveness. Given information for [facility] Follow-up in [...] Dictation was accomplished with the use of [employer] voice recognition software, prone to medical misidentifications [...] general surgical care and bariatric surgery at [phone]. Will fill it out and fax over. [...] is unsure any further information. #Referring to [facility] for psoriasis. Also has rash of [...] with results of x-ray in the meantime. [facility] in the meantime as well. Patient [...] log exercise and discussed fitness Apps like [employer] which can help keep log off calories [...] Dictation was accomplished with the use of [employer] voice recognition software, prone to medical misidentifications [...] Dictation was accomplished with the use of [employer] voice recognition software, prone to medical misidentifications [...] general surgical care and bariatric surgery at [phone]. Will fill it out and fax over. [...] is unsure any further information. #Referring to [facility] for psoriasis. Also has rash of [...] with results of x-ray in the meantime. [facility] in the meantime as well. Patient [...] log exercise and discussed fitness Apps like [employer] which can help keep log off calories [...] Dictation was accomplished with the use of [employer] voice recognition software, prone to medical misidentifications and grammatical errors. This is unintentional and the practitioner does try to identify and correct these, but some could still be present. Please do not hesitate to contact practitioner for clarification. Plan Of Treatment Pending Test Test Name Order Date X [...] BOURNE, 07/18/2025 08:00:00 AM, [address], [place], [id number], Insurance Providers Payer Name Payer Address Payer Phone Subscriber Number Group Number Insured Name Patient Relationship to Insured Coverage Start Date Coverage End Date [facility] [address] [place] [address] [id number] CODY OREILLY Self - patient is the insured Medical (General) History Medical History History ICD Code Diabetes mellitus with no complication E 11.9 Seasonal allergies J30.2 Hyperlipidemia, mild E78.5 GERD without esophagitis K21.9 Vitamin D deficiency E55.9 Psoriatic arthritis L40.50 Surgical History Surgery Date(Month/Year) egg retrevial 11/2023 gastric sleeve 12/07/24
== END 2025-02-07 14:07 | disposition home or self-care (01) ==
LOC: HO.HWS 12:16
PROVIDERS: PCP Internal Medicine; Visit Provider Advanced Practice Midwife
DX: N92.6 Irregular menstruation, unspecified (principal); Z30.431 Encounter for routine checking of intrauterine contraceptive device
CPT/HCPCS: 99213

== ENCOUNTER → 2025-02-07 12:16 | Outpatient (BNVA) | payer OTHER, SELFPAY | PROVIDERS: PCP Internal Medicine; Visit Provider Advanced Practice Midwife ==

== ENCOUNTER 2025-03-21 13:54 | Outpatient (REF) | payer OTHER, SELFPAY ==
[2025-03-21 20:54] LABS: Bacterial Vaginosis PCR NEGATIVE (Negative); Candida Group PCR NOT DETECTED (Not Detect); Candida glab krusei PCR NOT DETECTED (Not Detect); Trichomonas vaginalis PCR NOT DETECTED (Not Detect)
[2025-03-21 21:47] LABS: CT PCR NOT DETECTED (Not Detect.); NG PCR NOT DETECTED (Not Detect.)
== END 2025-03-21 13:55 | disposition home or self-care (01) ==
LOC: HO.LNP 13:54
PROVIDERS: PCP Internal Medicine; Visit Provider Advanced Practice Midwife
DX: Z01.411 Encounter for gynecological examination (general) (routine) with abnormal findings (principal); Z11.3 Encounter for screening for infections with a predominantly sexual mode of transmission; E11.9 Type 2 diabetes mellitus without complications; N92.6 Irregular menstruation, unspecified; Z98.84 Bariatric surgery status
CPT/HCPCS: 81515; 87491; 87591; 87626; 88175

== ENCOUNTER 2025-03-21 13:54 | Outpatient (AMB) | payer OTHER, SELFPAY ==
--- NOTE | 2025-03-21 13:57 | MHC.OFFVIS ---
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 Doing well with superintendent terminal concerns: cramping with the IUD, random pelvic pain occurring 3 to 4 times a week lasting 1-2 minutes enough to use a heating pad. Random bleeding patterns lasting up to several weeks at a time. Pelvic ultrasound in January revealed normal IUD placement and normal pelvic anatomy. Considering removal and using the NuvaRing. Currently is sexually active. She tries to eat healthy, status post bariatric surgery, and stays active with exercise. Denies family history of breast or ovarian, family history colon cancer. Last pap smear 2021, negative. [facility] Medical History (Updated 03/21/25 @ 14:36 by Suzanne Coronado CNM) IUD check up Irregular bleeding IUD (intrauterine device) in place Diabetes mellitus Surgical History (Updated 03/21/25 @ 14:34 by Suzanne Coronado CNM) S/P gastric sleeve procedure Family History Mother Diabetes Father Diabetes Hypertension Kidney failure Maternal Aunt Colon cancer Social History Household Members: Significant Other Alcohol intake: current Alcohol intake frequency: holidays/special occasions only Patient Tobacco Use Status: Never used Tobacco Sexual orientation: Straight/Heterosexual Gender identity: Female Female Reproductive History Menstrual Age of Menarche: 8 Duration of menses: 8-10 days Date of last menstrual period: 02/22/25 control method: progestin IUCD (Mirena ) Total pregnancies: 0 Date of last pap smear: 10/30/21 (negative pap smear, negative hpv) Review of Systems Const All systems reviewed & are unremarkable except as noted in HPI and below Reports as per HPI Eyes Reports no additional complaints ENT Reports no additional complaints Card Reports no additional complaints Resp Reports no additional complaints GI Reports as per HPI and Reports no additional complaints Reports as per HPI Musc Reports no additional complaints Skin/Breast Reports as per HPI Neuro Reports no additional complaints Psych Reports no additional complaints Endo Reports no additional complaints Feliz/Lymph Reports no additional complaints Aller/Immun Reports no additional complaints Physical Exam Vital Signs: Last Vital Signs BP 134/72 03/21/25 14:02 BMI result Body Mass Index 31.8 Const General: cooperative, healthy appearing, no acute distress, well developed and alert Orientation/consciousness: patient oriented x3 HEENT Head: Yes normal to inspection Eyes General: appearance normal, both eyes and all related structures Neck Neck: Yes normal visual inspection Thyroid: Thyroid normal Chest Chest palpation & inspection: normal inspection of the chest and other (no puckering, dimpling, peau de orange, retraction, discharge, masses) Breast/axilla inspection: normal inspection of the breasts Breast/axilla palpation: normal palpation of the breasts Resp Effort & Inspection: normal respiratory effort GI Inspection: Yes normal to inspection and Yes scar Palpation (GI): Soft to palpation Rectal Exam - Female: deferred General: Yes bladder normal to palpation External Female Exam: normal external appearance and normal appearance of the urethra Speculum Exam - Vagina: normal appearance of the vagina, normal palpation, normal vaginal discharge and vaginal bleeding Speculum Exam - Cervix: normal appearance of the cervix, normal palpation, 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) and Other cervical findings present (IUD strings present at the os) Bimanual exam- vagina & uterus: normal bimanual exam, normal palpation, uterine size normal, bladder normal to palpation, normal palpation and non-tender Bimanual Exam- Adnexa, other: no masses OB/external & speculum: vaginal bleeding Skin General skin exam: no rashes or lesions noted Rashes: no rashes Neuro General: patient oriented x3 Cognition (Neuro): normal cognition Extrem General: Yes normal to inspection Psych Attitude: cooperative Thought process: Normal thought process present Assessment & Plan Assessment & Plan (1) Irregular bleeding: Code(s): N92.6 - Irregular menstruation, unspecified Category: Medical Plan: chlamydia and BV panel obtained await results for final plan of care. Counseled regarding control options we will consider the NuvaRing start on the day of IUD removal we will schedule IUD removal appointment after her vacation in April. The patient expressed understanding and agreement with the plan of care. All of her questions and concerns were addressed to the best of my ability. This note is constructed using voice recognition software. (2) Encounter for well woman exam with routine gynecological exam: Code(s): Z01.419 - Encounter for gynecological examination (general) (routine) without abnormal findings Category: Medical Plan Discussed: Current recommendations for pap smears per ASCCP guidelines. Pap obtained. Breast awareness and periodic breast exams. Maintain a healthy lifestyle including a well balanced diet and routine exercise. GC chlamydia and BV panel obtained. Patient verbalizes understanding and agrees to the plan of care. She was given opportunity to ask questions and all questions were answered to the best of my ability. RTO in one year for annual superintendent terminal examination. This note is constructed using voice recognition software. While every effort has been made to ensure accuracy, word processing specialist errors may have been included. Coding Level of Care Code Est Pt Prev Care 18-39y([id number]) Diagnoses Irregular bleeding N92.6 Encounter for well woman exam with routine gynecological exam Z01.419
[2025-03-21 14:02] VITALS: BP 134/72; BMI 31.8
--- OUTSIDE RECORDS SUMMARY | 2025-03-21 14:45 | XMS_ITS | Patient Health Record ---
Author Organization [facility] [address] Address [address] [place] [address] Care Team Providers Care Interior Mechanic Name Role Phone NEHEMIAS BOURNE Unavailable [phone] JANELL COLEEN Unavailable [phone] Allergies Allergen (clinical drug ingredient) Drug/Non Drug Allergy documented on EMR Reaction Allergy Type Onset Date Status Feathers feathers (uncoded) Unknown Allergy A ctive grass (uncoded) Unknown Allergy Acti ve dulaglutide Trulicity rash Drug Allergy Activ e Dust Mites Unknown Allergy Active Pollen Pollen Unknown Allergy Active Results Component Value Reference Range Notes N.Meningitidis A/C/W-135/Y I gG Reviewed date:01/19/2025 10:17:42 AM Interpretation: Performing Lab:[facility], [address] [place] [address], Phone - [phone], Director - [facility] Notes/Report: N.Meningitidis Type A IgG 10.1 N.Meningitidis [...] developed and its performance characteristics determined by [facility]. It has not been cleared or approved by the US Food and Drug Administration. This test was performed in a CLIA certified laboratory and is intended for clinical purposes. N.Jamestidis Type W-135 IgG 1.2 T4F+T3Free Reviewed date:01/10/2025 03:37:52 PM Interpretation: Performing Lab:[facility] [place], Phone - [phone], Director - Jassi Notes/Report: Thyroxine (T-4), Serum 9.5 Reference Range: Adults: 4.2 - 13.0 Free T-3 3.1 Reference Range: >=20y: 2.0 - 4.4 Triiodothyronine (T-3), Serum 111 Reference Range: Adults: 55 - 170 Free Thyroxine 1.44 Reference Range: >=20y: 0.82 - 1.77 Hemoglobin A1c Reviewed date:01/10/2025 03:37:52 PM Interpretation: Performing Lab:[facility] [place], Phone - [phone], Director - Jassi Notes/Report: Hemoglobin A1c 5.0 Reference Range: [place] Diabetes Association (ADA) Guidelines: <5.7: Decreased risk for diabetes 5.7 - 6.4: Increased risk for diabetes >6.4: Ongoing Hyperglycemia of any cause <7.0: Glycemic control for adults with diabetes Estimated Average Glucose 97 Comp. Metabolic Panel (14)-3 [id number] Reviewed date:01/16/2025 08:50:46 AM Interpretation: Performing Lab:[facility] [place], Phone - [phone], Director - Jassi Notes/Report: Glucose 107 70-99 [...] IU/L ALT (SGPT) 18 0-32 IU/L Lipid Panel-[id number] Reviewed date:01/16/2025 08:50:46 AM Interpretation: Performing Lab:Jasbir Aceveod, [address] [facility], Phone - [phone], Director - [facility] Notes/Report: Cholesterol, Total 185 100-199 mg/dL Triglycerides 110 0-149 mg/dL HDL Cholesterol 48 >39 mg/dL VLDL Cholesterol Alexis 20 5-40 mg/dL LDL Chol Calc (NIH) 117 0-99 mg/dL Vitamin D, 84-Jebzetb-[id number] Reviewed date:01/10/2025 03:37:29 PM Interpretation: Performing Lab:Jasbir Acevedo, [address] [facility], [place], Phone - [phone], Director - [facility] Notes/Report: Vitamin D, 25-Hydroxy 45.4 30.0-100.0 ng/mL Vitamin D deficiency has been defined by the [place] of [employer] and an Endocrine Society practice guideline as a level of serum 25-OH vitamin D less than 20 ng/mL (1,2). The Endocrine Society went on to further define vitamin D insufficiency as a level between 21 and 29 ng/mL (2). 1. IOM ([place] of [employer]). 2010. Dietary reference intakes for calcium and D. [place]: The National Academies Press. 2. Phillip MF, Hazel NC, Sarah ADAN, et al. Evaluation, treatment, and prevention of vitamin D deficiency: an Endocrine Society clinical practice guideline. JCEM. 2010; 96(7):1911-30. CBC With Differential/Platel et-[id number] Reviewed date:01/10/2025 03:40:05 PM Interpretation: Performing Lab:Jasbir Acevedo, [address] [place] [address], Phone - [phone], Director - MDJodry Notes/Report: WBC 4.4 3.4-10.8 x10E3/uL RBC 4.45 [...] % Immature Grans (Abs) 0.0 0.0-0.1 x10E3/uL TSH-[id number] Reviewed date:01/10/2025 03:37:52 PM Interpretation: Performing Lab:Jasbir Acevedo, [address] [place] [address], Phone - [phone], Director - MDJodry Notes/Report: TSH 1.270 0.450-4.500 uIU/mL Urinalysis, Complete-[id number] Reviewed date:01/16/2025 08:50:46 AM Interpretation: Performing Lab:Jasbir Acevedo [address] [place] [address], Phone - [phone], Director - MDJodry Notes/Report: Specific [place] 1.020 1.005-1.030 pH 5.5 5.0-7.5 Urine-Color Yellow [...] Oxalate N/A Bacteria Few None seen/Few Vitamin [id number] Reviewed date:01/10/2025 03:37:29 PM Interpretation: Performing Lab:[facility] [place], [address] [place] [address], Phone - [phone], Director - MDJodry Notes/Report: Vitamin B12 176 681-4319 pg/mL Comp. Metabolic Panel (14)-3 Reviewed date:07/05/2024 08:09:41 AM Interpretation: Performing Lab:[facility] [place], [address] [place] [address], Phone - [phone], Director - MDJodry Notes/Report: Glucose 150 70-99 [...] IU/L ALT (SGPT) 52 0-32 IU/L Lipid Panel-[id number] Reviewed date:07/05/2024 08:01:37 AM Interpretation: Performing Lab:[facility] [place], [address] [place] [address], Phone - [phone], Director - MDJodry Notes/Report: Cholesterol, Total 140 100-199 mg/dL Triglycerides 119 0-149 mg/dL HDL Cholesterol 53 >39 mg/dL VLDL Cholesterol Alexis 21 5-40 mg/dL LDL Chol Calc ([facility]) 66 0-99 mg/dL Hgb A1c with eAG Estimation- [id number] Reviewed date:07/05/2024 08:01:37 AM Interpretation: Performing Lab:[facility], [address] [facility], [place], Phone - [phone], Director - MDJodry Notes/Report: Hemoglobin A1c 5.5 4.8-5.6 % . Prediabetes: 5.7 - 6.4 Diabetes: >6.4 Glycemic control for adults with diabetes: <7.0 Estim. Avg Glu (eAG) 111 CBC With Differential/Platel et-[id number] Reviewed date:07/05/2024 08:01:37 AM Interpretation: Performing Lab:[facility], [address] [facility], [place], Phone - [phone], Director - MDJoy Notes/Report: WBC 8.3 3.4-10.8 x10E3/uL RBC 4.26 [...] % Immature Grans (Abs) 0.0 0.0-0.1 x10E3/uL TSH-[id number] Reviewed date:07/05/2024 08:01:37 AM Interpretation: Performing Lab:[facility], [address], [place], Phone - [phone], Director - [facility] Notes/Report: TSH 2.160 0.450-4.500 uIU/mL Urinalysis, Routine-[id number] Reviewed date:07/05/2024 08:01:37 AM Interpretation: Performing Lab:[facility], [address] [place] [address], Phone - [phone], Director - [facility] Notes/Report: Specific [place] 1.007 1.005-1.030 pH 6.5 5.0-7.5 Urine-Color Yellow Yellow Appearance Clear Clear WBC Esterase Negative Negative Protein Negative Negative/Trace Glucose Negative Negative Ketones Negative Negative Occult Blood Negative Negative Bilirubin Negative Negative Urobilinogen,Semi-Qn 0.2 0.2-1.0 mg/dL Nitrite, Urine Negative Negative Microscopic Examination Micr oscopic not indicated and not performed. QuantiFERON-TB Gold Plus-[id number] Reviewed date:01/18/2025 07:54:16 AM Interpretation: Performing Lab:[facility], [address] [place] [address], Phone - [phone], Director - [facility] Notes/Report: QuantiFERON Incubation Incubation performed. QuantiFERON-TB Gold [...] 6530 Reviewed date:01/18/2025 07:54:16 AM Interpretation: Performing Lab:[address], Phone - [phone], Director - Jassi Notes/Report: Hepatitis B Surf Ab Quant 30.7 Immunity>10 mIU /mL Status of Immunity Anti-HBs Level Inconsistent with Immunity 0.0 - 10.0 Consistent with Immunity >10.0 Reason For Referral Diagnosis 1 Psoriasis, unspecifi ed (L40.9) Referral Organization [facility] Referring Provider First Name NEHEMIAS Referring Provider Last Name TAYLA Referring Provider Speciality Internal M edicine Referred Provider Specialty Dermatology General Notes Rubia Figueroa 2023 09:55:51 AM > referral sent to [facility] , [address] [place] [address], [address], [place] [address], [email or web address] , Referral Priority Routine Medications Medication SIG (Take, Route, Frequency, Duration) Notes Start Date End Date Status Docusate Sodium 100 MG TAKE 1 CAPSULE BY MOUTH TWICE A DAY Oral; Duration: 30 Days Active Rosuvastatin Calcium 5 MG TAKE 1 TABLET BY MOUTH EVERY DAY; Duration: 90 Active Clobetasol Propionate 0.05 % PLEASE SEE ATTACHED FOR DETAILED DIRECTIONS External; Duration: 30 Days Active Fluocinolone Acetonide 0.01 % APPLY 3-4 DROPS TO BOTH EAR DAILY UNTIL SYMPTOMS IMPROVED. THEN USE NEEDED FOR MAINTENANCE. Otic; Duration: 30 Days Active Loratadine 10 MG TAKE 1 TABLET BY BLAISE TH EVERY DAY FOR 90 DAYS; Duration: 90 Active Vitamin D3 50 MCG (2000 UT) TAKE 1 CAPSU LE BY MOUTH EVERY DAY FOR 90 DAYS; Duration: 90 Active Albuterol Sulfate (2.5 MG/3ML) 0.083% 3 mL as needed Inhalation every 6 hrs; Duration: 30 days 09/12/2024 Active Montelukast Sodium 10 MG 1 tablet Orally Once a day; Duration: 90 days Active Vitamin B-1 Active CVS D3 50 MCG (2000 UT) 1 capsule Orally Once a day; Duration: 90 days Active Otezla 30 MG 1 [...] Are you a nonsmoker Section Notes: medical reviewer medical reviewer medical reviewer See HPI medical reviewer medical reviewer medical reviewer medical reviewer medical reviewer medical reviewer See HPI medical reviewer medical reviewer medical reviewer medical reviewer medical reviewer medical reviewer medical reviewer See HPI medical reviewer medical reviewer medical reviewer medical reviewer medical reviewer medical reviewer Problems Problem Type SNOMED Code ICD Code Onset Dates Problem Status W/U Status Risk Notes Problem 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 underlying 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 complications (E08.9) Active confirmed Problem Hyperglycemia due to type 2 diabetes mellitus (248869954106599) Type 2 diabetes mellitus with hyperglycemia (E11.65) Active confirmed Problem Disorder due to type 2 diabetes mellitus (243799200) Type 2 diabetes mellitus with unspecified complications (E11.8) Active confirmed Problem Diabetes insipidus (5994743540) Diabetes insipidus (E23.2) Active confirmed Problem Vitamin D deficiency (57119562) Vitamin D deficiency, unspecified (E55.9) Active confirmed Problem Morbid obesity (disorder) (450354847) Morbid (severe) obesity due to excess calories (E66.01) Active confirmed Problem Mixed hyperlipidemia (872652966) Mixed hyperlipidemia (E78.2) Active confirmed Problem Hyperlipidemia (07700934) Hyperlipidemia, unspecified (E78.5) Active confirmed Problem Psoriasis (1536296) Psoriasis, unspecified (L40.9) Active confirmed Problem Nasal congestion (13722526) Nasal congestion (R09.81) Active confirmed Problem Adult health examination (504204438) Encounter for general adult medical examination without abnormal findings (Z00.00) Active confirmed Problem Hyperlipidaemia (65352865) Hyperlipidemia, unspecified hyperlipidemia type (E78.5) Active confirmed Problem Acquired hypothyroidism (209606972) Acquired hypothyroidism (E03.9) Active confirmed Problem Psoriatic arthritis (582864691) Psoriatic arthritis (L40.50) Active confirmed Problem Gallstone (699225922) Gall stones (K80.20) Active confirmed Problem Hypothyroidism (90189472) Hypothyroidism, unspecified type (E03.9) Active confirmed Problem Annual health maintenance examination (43588970) Annual physical exam (Z00.00) Active confirmed Problem Seasonal allergy (449954883) Seasonal allergies (J30.2) Active confirmed Problem Vitamin D deficiency (84845526) Vitamin D deficiency (E55.9) Active confirmed Problem Elevated liver enzymes level (038012330) Elevated liver enzymes (R74.8) Active confirmed Problem Fatty liver (627708345) Fatty liver (K76.0) Active confirmed Problem Obstructive sleep apnea syndrome (77287473) СЕРГЕЙ (obstructive sleep apnea) (G47.33) Active confirmed Problem Body mass index 40+ - morbidly obese (281906121) BMI 40.0-44.9, adult (Z68.41) Active confirmed Problem Gastroesophageal reflux disease without esophagitis (176054423) Gastroesophageal reflux disease without esophagitis (K21.9) Active confirmed Problem Type II diabetes mellitus without complication (303494754) Type 2 diabetes mellitus without complication, unspecified whether superintendent container terminal insulin use (E11.9) Active confirmed Problem Mild intermittent asthma (632164363) Mild intermittent asthma without complication (J45.20) Active confirmed Problem Gastroesophageal reflux disease (018594434) Gastroesophageal reflux disease, unspecified whether esophagitis present (K21.9) Active confirmed Problem Polycystic ovary syndrome (disorder) (153808316) PCOS (polycystic ovarian syndrome) (E28.2) Active confirmed Problem Essential hypertension (03416477) High blood pressure determined by examination (I10) Active confirmed Problem Vitamin B>12< deficiency anaemia (46781638) Anemia due to vitamin B12 deficiency, 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) Active confirmed Problem Hyperglycemia due to type 2 diabetes mellitus (232865123125334) Type 2 diabetes mellitus with hyperglycemia, without long-term current use of insulin (E11.65) Active confirmed Problem Mass of axilla (567974287) Mass of left axilla (R22.32) Active confirmed Problem Gastroesophageal reflux disease (729637171) GERD without esophagitis (K21.9) Active confirmed Problem Amnesia (18031094) Memory change s (R41.3) Active confirmed Problem Gallstones (985878202) Gallstones (K80.20) Active confirmed Problem Lipid screening (362009843) Lipid screening (Z13.220) Active confirmed Problem Unable to concentrate (finding) (62782842) Difficulty concentrating (R41.840) Active confirmed Problem Female infertility (7124405) Infertility, female (N97.9) Active confirmed Vital Signs Heart Rate 101 /min 12/25/2024 Oximetry 97 % 12/25/2024 Blood pressure diastolic 82 mm Hg 12/25/2024 Height 64 in 12/25/2024 Blood pressure systolic 126 mm Hg 12/25/2024 Weight 196.8 lbs 12/25/2024 BMI 33.78 kg/m2 12/25/2024 Encounters Encounter Location Date Provider Diagnosis [facility] [address] [place], [place] 07/11/2024 NEHEMIAS BOURNE GERD without esophag itis K21.9 ; Wellness examination Z00.00 ; Type 2 diabetes mellitus with hyperglycemia E11.65 ; Gastroesophageal reflux disease without esophagitis K21.9 ; Mixed hyperlipidemia E78.2 ; Infertility, female N97.9 ; Seasonal allergies J30.2 ; Encounter for immunization Z23 ; Pain in right hip M25.551 and Pain in left hip M25.[address] [facility] [address] [place], [place] 09/12/2024 DOUGLAS COLE Close exposure to 2019-nCoV Z20.822 ; RSV (respiratory syncytial virus infection) B33.8 ; RSV exposure Z20.828 and Acute cough R05.[address] [facility] [address] [place], [place] 12/25/2024 NEHEMIAS BOURNE GERD without esophag itis K21.9 ; Psoriatic arthritis L40.50 ; Mixed hyperlipidemia E78.2 ; Infertility, female N97.9 ; Seasonal allergies J30.2 ; Pain in right hip M25.551 ; Pain in left hip M25.552 ; Difficulty concentrating R41.840 and Hyperglycemia R73.[address] [place], [place] 05/18/2024 NE[address]MIAS BOURNE [facility] [address] [place], [place] 07/07/2024 NEHEMIAS BOURNE [facility] [address] [facility] [address] [place] [address] 07/11/2024 NEHEMIAS BOURNE [facility] [address] [facility] [address] [place] [address] 09/12/2024 NEHEMIASYasmin BOURNE [facility] [address] [place] [address] 01/02/2025 NEHEMIAS BOURNE Need for hepatitis B screening test Z11.59 and Immunity to measles, mumps, and rubella determined by serologic test Z01.[address] [place] [address] 01/16/2025 NEHEMIAS BOURNE [facility] [address] [place] [address] 01/23/2025 NEHEMIAS BOURNE [facility] [address] [place] [address] 01/25/2025 NEHEMIASYasmin BOURNE [facility] [address] [facility] [address] [place] [address] 04/12/2024 NEHEMIASYasmin BOURNE [facility] [address] [facility] [address] [place] [address] 05/18/2024 NEHEMIAS BOURNE [facility] [address] [facility] [address] [place] [address] 06/23/2024 NEHEMIASYasmin BOURNE [facility] [address] [facility] [address] [place] [address] 07/20/2024 NEHEMIAS BOURNE [facility] [address] [facility] [address] [place] [address] 08/23/2024 NEHEMIASYasmin BOURNE [facility] [address] [facility] [address] [place] [address] 09/12/2024 NEHEMIAS BOURNE [facility] [address] [facility] [address] [place] [address] 09/27/2024 NEHEMIASYasmin BOURNE [facility] [address] [facility] [address] [place] [address] 10/30/2024 NEHEMIASYasmin BOURNE [facility] [address] [facility] [address] [place] [address] 01/04/2025 NEHEMIAS BOURNE Encounter for genera l adult medical examination without abnormal findings Z00.00 [facility] [address] [facility] [address] [place] [address] 01/08/2025 NEHEMIAS BOURNE [facility] [address] [facility] [address] [place] [address] 01/09/2025 NEHEMIAS BOURNE [facility] [address] [address] 01/15/2025 NEHEMIAS BOURNE Encounter for genera l adult medical examination without abnormal findings Z00.00 [facility] [address] [facility] [address] [place] [address] 01/15/2025 NEHEMIAS BOURNE [facility] [address] [address] 01/22/2025 NEHEMIAS BOURNE Assessments Encounter Date Diagnosis (ICD Code) Assessment Notes Treatment Notes Treatment Clinical Notes Section Notes 07/11/2024 Wellness examination (ICD-10 - Z00.00) Pleasant 34-year-old female here for complete physical exam. # Patient needs a letter of support from us fax over to general surgical care and bariatric surgery at [phone]. Will fill it out and fax over. [...] is unsure any further information. #Referring to [facility] for psoriasis. Also has rash of [...] with results of x-ray in the meantime. [facility] in the meantime as well. Patient [...] log exercise and discussed fitness Apps like [employer] which can help keep log off calories [...] Dictation was accomplished with the use of [employer] voice recognition software, prone to medical misidentifications [...] general surgical care and bariatric surgery at [phone]. Will fill it out and fax over. [...] is unsure any further information. #Referring to [facility] for psoriasis. Also has rash of [...] with results of x-ray in the meantime. [facility] in the meantime as well. Patient [...] log exercise and discussed fitness Apps like [employer] which can help keep log off calories [...] Dictation was accomplished with the use of [employer] voice recognition software, prone to medical misidentifications [...] Dictation was accomplished with the use of [employer] voice recognition software, prone to medical misidentifications [...] Dictation was accomplished with the use of [employer] voice recognition software, prone to medical misidentifications [...] still on pureed diet, following with a education consultant, and surgeon. Pleased with progress overall. Taking [...] with improvement in joint pain. #Referring to [facility] for psoriasis. Prescribed clobetasol and fluocinolone [...] admits to some inattentiveness. Given information for [facility] Follow-up in July [...] Dictation was accomplished with the use of [employer] voice recognition software, prone to medical misidentifications [...] still on pureed diet, following with a education consultant, and surgeon. Pleased with progress overall. Taking [...] with improvement in joint pain. #Referring to [facility] for psoriasis. Prescribed clobetasol and fluocinolone [...] admits to some inattentiveness. Given information for [facility] Follow-up in July [...] Dictation was accomplished with the use of [employer] voice recognition software, prone to medical misidentifications [...] still on pureed diet, following with a education consultant, and surgeon. Pleased with progress overall. Taking [...] with improvement in joint pain. #Referring to [facility] for psoriasis. Prescribed clobetasol and fluocinolone [...] admits to some inattentiveness. Given information for [facility] Follow-up in July [...] Dictation was accomplished with the use of [employer] voice recognition software, prone to medical misidentifications [...] Dictation was accomplished with the use of [employer] voice recognition software, prone to medical misidentifications [...] general surgical care and bariatric surgery at [phone]. Will fill it out and fax over. [...] is unsure any further information. #Referring to [facility] for psoriasis. Also has rash of [...] with results of x-ray in the meantime. [facility] in the meantime as well. Patient [...] log exercise and discussed fitness Apps like [employer] which can help keep log off calories [...] Dictation was accomplished with the use of [employer] voice recognition software, prone to medical misidentifications [...] general surgical care and bariatric surgery at [phone]. Will fill it out and fax over. [...] is unsure any further information. #Referring to [facility] for psoriasis. Also has rash of [...] with results of x-ray in the meantime. [facility] in the meantime as well. Patient [...] log exercise and discussed fitness Apps like [employer] which can help keep log off calories [...] Dictation was accomplished with the use of [employer] voice recognition software, prone to medical misidentifications [...] Dictation was accomplished with the use of [employer] voice recognition software, prone to medical misidentifications [...] still on pureed diet, following with a education consultant, and surgeon. Pleased with progress overall. Taking [...] with improvement in joint pain. #Referring to [facility] for psoriasis. Prescribed clobetasol and fluocinolone [...] admits to some inattentiveness. Given information for [facility] Follow-up in July [...] Dictation was accomplished with the use of [employer] voice recognition software, prone to medical misidentifications [...] still on pureed diet, following with a education consultant, and surgeon. Pleased with progress overall. Taking [...] with improvement in joint pain. #Referring to [facility] for psoriasis. Prescribed clobetasol and fluocinolone [...] admits to some inattentiveness. Given information for [facility] Follow-up in July [...] Dictation was accomplished with the use of [employer] voice recognition software, prone to medical misidentifications [...] general surgical care and bariatric surgery at [phone]. Will fill it out and fax over. [...] is unsure any further information. #Referring to [facility] for psoriasis. Also has rash of [...] with results of x-ray in the meantime. [facility] in the meantime as well. Patient [...] log exercise and discussed fitness Apps like [employer] which can help keep log off calories [...] Dictation was accomplished with the use of [employer] voice recognition software, prone to medical misidentifications [...] general surgical care and bariatric surgery at [phone]. Will fill it out and fax over. [...] is unsure any further information. #Referring to [facility] for psoriasis. Also has rash of [...] with results of x-ray in the meantime. [facility] in the meantime as well. Patient [...] log exercise and discussed fitness Apps like [employer] which can help keep log off calories [...] Dictation was accomplished with the use of [employer] voice recognition software, prone to medical misidentifications [...] still on pureed diet, following with a education consultant, and surgeon. Pleased with progress overall. Taking [...] with improvement in joint pain. #Referring to [facility] for psoriasis. Prescribed clobetasol and fluocinolone [...] admits to some inattentiveness. Given information for [facility] Follow-up in July [...] Dictation was accomplished with the use of [employer] voice recognition software, prone to medical misidentifications [...] still on pureed diet, following with a education consultant, and surgeon. Pleased with progress overall. Taking [...] with improvement in joint pain. #Referring to [facility] for psoriasis. Prescribed clobetasol and fluocinolone [...] admits to some inattentiveness. Given information for [facility] Follow-up in July [...] Dictation was accomplished with the use of [employer] voice recognition software, prone to medical misidentifications [...] general surgical care and bariatric surgery at [phone]. Will fill it out and fax over. [...] is unsure any further information. #Referring to [facility] for psoriasis. Also has rash of [...] with results of x-ray in the meantime. [facility] in the meantime as well. Patient [...] log exercise and discussed fitness Apps like [employer] which can help keep log off calories [...] Dictation was accomplished with the use of [employer] voice recognition software, prone to medical misidentifications [...] general surgical care and bariatric surgery at [phone]. Will fill it out and fax over. [...] is unsure any further information. #Referring to [facility] for psoriasis. Also has rash of [...] with results of x-ray in the meantime. [facility] in the meantime as well. Patient [...] log exercise and discussed fitness Apps like [employer] which can help keep log off calories [...] Dictation was accomplished with the use of [employer] voice recognition software, prone to medical misidentifications [...] still on pureed diet, following with a education consultant, and surgeon. Pleased with progress overall. Taking [...] with improvement in joint pain. #Referring to [facility] for psoriasis. Prescribed clobetasol and fluocinolone [...] admits to some inattentiveness. Given information for [facility] Follow-up in July [...] Dictation was accomplished with the use of [employer] voice recognition software, prone to medical misidentifications [...] still on pureed diet, following with a education consultant, and surgeon. Pleased with progress overall. Taking [...] with improvement in joint pain. #Referring to [facility] for psoriasis. Prescribed clobetasol and fluocinolone [...] admits to some inattentiveness. Given information for [facility] Follow-up in July [...] Dictation was accomplished with the use of [employer] voice recognition software, prone to medical misidentifications [...] general surgical care and bariatric surgery at [phone]. Will fill it out and fax over. [...] is unsure any further information. #Referring to [facility] for psoriasis. Also has rash of [...] with results of x-ray in the meantime. [facility] in the meantime as well. Patient [...] log exercise and discussed fitness Apps like [employer] which can help keep log off calories [...] Dictation was accomplished with the use of [employer] voice recognition software, prone to medical misidentifications [...] general surgical care and bariatric surgery at [phone]. Will fill it out and fax over. [...] is unsure any further information. #Referring to [facility] for psoriasis. Also has rash of [...] with results of x-ray in the meantime. [facility] in the meantime as well. Patient [...] log exercise and discussed fitness Apps like [employer] which can help keep log off calories [...] Dictation was accomplished with the use of [employer] voice recognition software, prone to medical misidentifications [...] BOURNE, 07/18/2025 08:00:00 AM, [address], [place], [address], Insurance Providers Payer Name Payer Address Payer Phone Subscriber Number Group Number Insured Name Patient Relationship to Insured Coverage Start Date Coverage End Date [facility] [address] [place] [address] [id number] CODY OREILLY Self - patient is the insured Medical (General) History Medical History History ICD Code Diabetes mellitus with no complication E 11.9 Seasonal allergies J30.2 Hyperlipidemia, mild E78.5 GERD without esophagitis K21.9 Vitamin D deficiency E55.9 Psoriatic arthritis L40.50 Surgical History Surgery Date(Month/Year) egg retrevial 11/2023 gastric sleeve 12/07/24
== END 2025-03-21 14:44 | disposition home or self-care (01) ==
LOC: HO.HWS 13:54
PROVIDERS: PCP Internal Medicine; Visit Provider Advanced Practice Midwife
DX: Z01.419 Encounter for gynecological examination (general) (routine) without abnormal findings (principal); N92.6 Irregular menstruation, unspecified
CPT/HCPCS: 99395; 99459

== ENCOUNTER 2025-05-02 07:53 | Outpatient (AMB) | payer OTHER, SELFPAY ==
--- OUTSIDE RECORDS SUMMARY | 2025-04-27 07:00 | XMS_ITS ---
Author Organization [facility] [address] Address [address] [place] [address] Care Team Providers Care Toddler Lead Teacher Name Role Phone NEHEMIAS BOURNE Unavailable [phone] CORAZON RIANA Unavailable [phone] REASON FOR VISIT positive covid at home- wants paxlovid Medications Medication SIG (Take, Route, Frequency, Duration) Notes Start Date End Date Status Docusate Sodium 100 MG TAKE 1 CAPSULE BY MOUTH TWICE A DAY Oral; Duration: 30 Days Active Vitamin B-1 Active Otezla 30 MG 1 tablet Orally Twic e a day Active Rosuvastatin Calcium 5 MG TAKE 1 TABLET BY MOUTH EVERY DAY; Duration: 90 Active Famotidine 20 MG 1 tablet as needed O rally Twice a day Active Fluocinolone Acetonide 0.01 % APPLY 3-4 DROPS TO BOTH EAR DAILY UNTIL SYMPTOMS IMPROVED. THEN USE NEEDED FOR MAINTENANCE. Otic; Duration: 30 Days Active Vitamin D3 50 MCG (1999 UT) TAKE 1 CAPSU LE BY MOUTH EVERY DAY FOR 90 DAYS; Duration: 90 Active Clobetasol Propionate 0.05 % PLEASE SEE ATTACHED FOR DETAILED DIRECTIONS External; Duration: 30 Days Active Montelukast Sodium 10 MG 1 tablet Orally Once a day; Duration: 90 days Active Loratadine 10 MG TAKE 1 TABLET BY BLAISE TH EVERY DAY FOR 90 DAYS; Duration: 90 Active CVS D3 50 MCG (1999 UT) 1 capsule Orally Once a day; Duration: 90 days Active Albuterol Sulfate (2.5 MG/3ML) 0.083% 3 mL as needed Inhalation every 6 hrs; Duration: 30 days 09/12/2024 Active Encounters Encounter Location Date Provider Diagnosis [facility] [address] [facility] [address] [place] [address] 04/27/2025 RIANA CHANDRA Plan Of Treatment Next Appt Details Provider Name:NEHEMIAS BOURNE, 07/18/2025 08:00:00 AM, [address], [place], [address], Progress Notes * CODY BUTTERFIELDDOB:[birth year] (35 yo F)Acc No.[id number]:04/27/2025 Progress Notes Patient: CDOY GARCIA Provider: Fabi CHANDRA :1990 A ge:35 Y S ex:Female Date:04/27/2025 Address:[address] [place], [place] [id number] Subjective: * Chief Complaints: * 1 . Positive covid at home- wants paxlovid. * Medical History: * Medications: T aking Otezla 30 MG Tablet 1 tablet Orally [...] BY MOUTH TWICE A DAY Oral , Taking Rosuvastatin Calcium 5 MG Tablet TAKE 1 TABLET BY MOUTH EVERY DAY Objective: * Vitals: Assessment: Plan: * Treatment: Care Plan: * Problems: * Images: Billing Information: * Visit Code: * Procedure Codes: Care Plan Details* * Electronic signature of BECKY CHANDRA PA-C, [id number] on 05/02/2025 at 07:56 AM EDT Sign off status: Pending * Provider: Fabi CHANDRA Date: 0 04/27/2025 Generated for Issac mccabe/Cheryl/[place] on: 0 05/02/2025 07:56 AM EDT
--- NOTE | 2025-05-02 07:55 | A.OFFVIS_ITS ---
Vital Signs 05/02/25 07:56 Height 5 ft 4 in Weight 173 lb BMI 29.7 BP 114/82 Intake Visit Reasons: IUD removal/ control consult Community Living Instructor: Community Living Instructor Present (Jessica) Allergies No Known Allergies Allergy (Verified 05/02/25 07:55) Is last menstrual period known: Yes Last menstrual period: 04/28/25 HPI Comments Details: Patient is here today for IUD check, she is still concerned that she is having ongoing bleeding and has not improved since insertion and she would like to have it removed, and go back onto the Nuvaring. History of bariatric surgery plans future after weight loss. She denies any contraindications to control such as: migraines with aura, history of DVT or pulmonary emboli, high blood pressure, liver disease, thrombolic disorders, Lupus, +ANAIS, breast cancer, or smoking. [facility] Medical History (Updated 05/02/25 @ 08:36 by Suzanne Coronado CNM) Encounter for prescription for nuvaring Irregular bleeding Diabetes mellitus Surgical History (Updated 03/21/25 @ 14:34 by Suzanne Coronado CNM) S/P gastric sleeve procedure Family History Mother Diabetes Father Diabetes Hypertension Kidney failure Maternal Aunt Colon cancer Social History Household Members: Significant Other Alcohol intake: current Alcohol intake frequency: holidays/special occasions only Patient Tobacco Use Status: Never used Tobacco Sexual orientation: Straight/Heterosexual Gender identity: Female Female Reproductive History Menstrual Age of Menarche: 8 Date of last menstrual period: 04/28/25 Review of Systems Const All systems reviewed & are unremarkable except as noted in HPI and below Physical Exam Vital Signs: Last Vital Signs BP 114/82 05/02/25 07:56 BMI result Body Mass Index 29.7 Const General: cooperative, healthy appearing and no acute distress Orientation/consciousness: patient oriented x3 GI Inspection: Yes normal to inspection Palpation (GI): Soft to palpation and Other GI palpation findings present (Nontender) Rectal Exam - Female: visual inspection normal General: Yes bladder normal to palpation External Female Exam: normal appearance of the urethra Speculum Exam - Vagina: normal appearance of the vagina, normal palpation, normal vaginal discharge and vaginal bleeding Speculum Exam - Cervix: normal appearance of the cervix, normal palpation and Other cervical findings present (IUD strings at the os) Bimanual exam- vagina & uterus: normal bimanual exam, normal palpation, uterine size normal, bladder normal to palpation, normal palpation, uterine shape normal and non-tender Bimanual Exam- Adnexa, other: normal adnexae OB/external & speculum: vaginal bleeding Neuro General: patient oriented x3 Office Procedures IUD Insert/Removal Details Details: The patient presents today for a IUD removal. ?She is planning the Nuvaring. She was counseled regarding the removal of her IUD. She was consented for the procedure along with anticipatory guidance for the removal and the consents form was signed. She desires to proceed with the IUD removal. IUD Removal Procedure: The patient was placed in the dorsal lithotomy position. A speculum was inserted vaginally and the cervix and strings were visualized at the os. A ring forcep was utilized, and the patient was asked to give a deep cough while the strings were grasped and gently tugged at the same time, removing the IUD device intact. Minimal bleeding was observed. All of the equipment was removed. The patient tolerated the procedure well and left the office in good condition. IUD Removal Information: You may have light bleeding for several days, tapering off to a brown or pink color. Mild cramping after removal is common. If not allergic, you may take an over the counter mild analgesic for the discomfort, such as Tylenol or Advil (use dosing and frequency per the manufacturers recommendations). Call the office if you experience: fever (over 100.4), flu like symptoms, abdominal or pelvic pain, foul smelling discharge or heavy bleeding. If not planning for a future , another form of control is recommended. Use of condoms for prevention of STI's is also recommended, if indicated. This note is constructed using voice recognition software. ?While every effort has been made to ensure accuracy, dictaphone transcriber errors may have been included. ? [id number] Removal Procedure code (CPT) selection complete Assessment & Plan Assessment & Plan (1) Encounter for IUD removal: Code(s): Z30.432 - Encounter for removal of intrauterine contraceptive device Plan: See procedure notes. (2) Encounter for prescription for nuvaring: Code(s): Z30.018 - Encounter for initial prescription of other contraceptives Plan: Total time I personally spent on visit and management today: ?15 minutes. Time spent included review of pertinent office notes in the electronic health record; review of laboratory and imaging results; review of personal family medical history; performing physical exam; discussing diagnosis and plan of care with the patient; documenting the encounter in the EMR. Plan Counseled regarding initiation of NuvaRing, use, side effects, warnings all reviewed. control recheck in 2-1/2 months. control hormone use warnings: go to ER if and loss of vision, blindness, severe headache, chest pain or difficulty breathing, severe abdominal pain, or any pain or swelling in an extremity. The patient expressed understanding and agreement with the plan of care. All of her questions and concerns were addressed to the best of my ability. This note is constructed using voice recognition software. While every effort has been made to ensure accuracy, dictaphone transcriber errors may have been included. Coding Level of Care Code Est Pt Level 2 (12786) Procedure Only Diagnoses Encounter for IUD removal Z30.432 Encounter for prescription for nuvaring Z30.018 CPT Codes Details - CPT: 00861-PAX Removal ([id number])
[2025-05-02 07:56] VITALS: BP 114/82; BMI 29.7
--- OUTSIDE RECORDS SUMMARY | 2025-05-02 07:56 | XMS_ITS | Clinical Summary ---
Author Organization [facility] Address [address] [address] Phone Care Team Providers Care Director Of Resource Development Name Role Phone Fabricio Willoughby Primary Care Provider [phone] Allergies Active Allergy Reactions Criticality Noted Date Comments Dulaglutide Rash Low 02/23/2025 Grass Pollen Cough,Itching,Other (See Comments),Sneezing 06/13/2024 House Dust Sneezing 06/13/2024 Medications montelukast (SINGULAIR) 10 mg tablet Take 1 tablet by mouth every morning. 4 Active loratadine (CLARITIN) 10 mg tablet Take 1 tablet by mouth every morning. 4 Active cholecalciferol (VITAMIN D3) 2,000 unit capsule Take 1 capsule by mouth every morning. 4 Active fluocinolone acetonide (DERMOTIC) 0.01 % Drop APPLY 3-4 DROPS TO BOTH EAR DAILY UNTIL SYMPTOMS IMPROVED. THEN USE NEEDED FOR MAINTENANCE. 5 Active clobetasol (CLOBEX) 0.05 % shampoo PLEASE SEE ATTACHED FOR DETAILED DIRECTIONS 5 Active apremilast (OTEZLA) 30 mg tablet Take 30 mg by mouth 2 (two) times a day. Active albuterol 90 mcg/actuation inhaler INHALE 2 PUFFS EVERY 4 HR NEEDED FOR COUGH FOR 30 DAYS 5 Active levonorgestreL (MIRENA) 21 mcg/24hr (up to 8 yrs) 52 mg intrauterine device 1 Device by Intrauterine route. Active acetaminophen (TYLENOL) 500 MG tablet Take 2 tablets (1,000 mg total) by mouth every 6 (six) hours as needed for pain (specific location in comments). 60 tablet 1 5 Active docusate sodium (COLACE) 100 MG capsule Take 1 capsule (100 mg total) by mouth 2 (two) times a day. 60 capsule 6 5 Active famotidine (PEPCID) 20 MG tablet TAKE 1 TABLET BY MOUTH TWICE A DAY 180 tablet 1 5 Active therapeutic multivitamin tablet Take 1 tablet by mouth daily. Patchaid-bariatr ic Active cyanocobalamin, vitamin B-12, 100 MCG tablet Take 100 mcg by mouth daily. Patchaid Active Active Problems Problem Noted Date Diagnosed Date Bariatric surgery status 12/07/2024 Type 2 diabetes mellitus 12/06/2024 Blood pressure elevated without history of HTN 0 12/06/2024 Class 1 obesity due to exces s calories without serious comorbidity with body mass index (BMI) of 30.0 to 30.9 in adult 07/14/2024 Assessment & Plan (02/23/2025 9:50 AM EDT): This is a 34-year-old woman who underwent a laparoscopic sleeve gastrectomy in December 2024 and is doing extremely well with weight loss. She should add some strength training to her current workouts. She will continue current eating plan water intake. She will continue famotidine for another month and then wean off of it. She is no longer taking her cholesterol medication. She will follow-up with the dietitian as already scheduled for April 04 and follow-up with me again in 8 weeks timeframe. She is not stable and is considered obese. Assessment & Plan (10/24/2024 4:55 PM EST): This is a 34-year-old woman who has completed all requirements that are necessary to be a surgical weight loss candidate. The patient is interested in undergoing laparoscopic sleeve gastrectomy with possible hiatal hernia repair and intraoperative endoscopy. Patient is completed 5 out of 5 nutrition classes, 2 out of 2 behavioral health assessments and all required testing. I will submit her formation to the insurance [employer] for the above-noted procedure. Once we have the approval from the insurance company will set up a preoperative visit to go over the perioperative course and then set up a surgical date. The patient will continue current eating plan exercise plan and water intake. She will continue current medications as reviewed. She is not stable and is considered overweight. The patient was told that she must avoid all and breast-feeding for 18 to 24 months postoperatively. Patient will stop her metformin and her Mounjaro a week before surgery. Assessment & Plan (09/05/2024 10:44 AM EST): This a 34-year-old woman who is interested in a laparoscopic sleeve gastrectomy. She has completed 5 out of 5 nutrition classes, 2 out of 2 behavioral health assessments for that and all required testing. She now has 7.4 more pounds to lose before being a surgical weight loss candidate. She has an appoint with the dietitian for September 18 and she should follow-up with me again in 4 to 5 weeks timeframe and hopefully she will have lost all the weight to submitted to the insurance company for approval for surgery. Will continue current medications as reviewed. She is not stable and is considered obese. Assessment & Plan (08/14/2024 1:12 PM EST): A1c should be less than 7 and LDL less than 70 mg/dL Assessment & Plan (07/14/2024 4:47 PM EST): This is a 34-year-old woman who is interested in a laparoscopic sleeve gastrectomy. She has lost 7.8 pounds and now has 16.2 pounds to lose before being a surgical weight loss candidate. She will continue current eating plan and avoid skipping meals. She will continue current water intake and resume exercise. She has completed 0-5 nutrition classes, 2 out of 2 behavioral health assessments and has been cleared. She has her primary care doctor support letter and physical exam, and she has completed all required testing. She will follow-up with the dietitian as already scheduled for July 31 and follow-up with me again in the office in 6 weeks timeframe. She will continue current medications as reviewed. She is not stable and is considered obese. Morbid obesity with BMI of 40.0-44.9, adult 05/08 Assessment & Plan (08/14/2024 1:12 PM EST): I talked to her at length about diet and exercise and weight loss methods Assessment & Plan (05/29/2024 3:56 PM EDT): This is a 34 YO patient who is interested in weight loss surgery, specifically the laparoscopic sleeve gastrectomy for weight loss. We have discussed gastric bypass and sleeve gastrectomy surgery in detail including risks, benefits, and alternatives. We have also discussed requirements preop and post op. They understands that they are required to lose about 10 percent of their current weight which is 24 lbs. The goal weight at the time of submission to the insurance company will be 113.2 pounds. In an effort to help the patient to lose weight I have prescribed an eating plan which will consist of a protein shake or a protein bar or Estonian yogurt or cottage cheese to be consumed at 9 AM and 3 PM daily. The patient will consume 4 ounces of protein with 6 ounces of vegetable or small salad with a noncreamy salad dressing of not more than 2 tablespoons at 12 PM and 6 PM daily. At the 6 PM meal the patient may have 1/2 cup of carbohydrate. We have ordered required labs and testing. The patient will attend 5 nutrition classes, 2 appointments, and dietitian consultation. The patient will need to obtain a medical clearance letter from the primary care doctor prior to submission to the insurance company. The patient will see the dietitian in 2 and 4 weeks and I will follow up with them again in 6 weeks to ensure compliance with the meal plan. The patient will continue current medications as reviewed. They are not stable and are considered morbidly obese. I spent 57 minutes with this patient which also included documentation. Preoperative evaluation to r ule out surgical contraindication 05/29/2024 Assessment & Plan (08/14/2024 1:12 PM EST): As mentioned she has no cardiorespiratory symptoms and does not have any prior cardiac history her ECG is a normal variant I will go ahead and operate on her without any further cardiovascular testing Encounters Date Type Department Care Team Description 02/23/2025 9:00 AM EDT Office Visit [facility] [address] [place] [address] Jerri Chairez MD Class 1 obesity due to excess calories without serious comorbidity with body mass index (BMI) of 30.0 to 30.9 in adult (Primary Dx); Bariatric surgery status; S/P laparoscopic sleeve gastrectomy 02/01/2025 8:00 AM EDT Nutrition [facility] [address] [place] [address] Indira Dorado LDN Bariatric surgery status (Primary Dx); Obesity (BMI 30.0-34.9) [facility] [address] [place] [address] Jerri Chairez MD Med Change Request from Last 3 Months Family History Medical History Relation Comments Diabetes type II Father Drug abuse Father Hypertension Father Kidney failure Father Diabetes type II Mother Epilepsy Mother High cholesterol Mother Hypertension Mother Relation Status Comments Brother Alive Father Mother Alive Social History Tobacco Use Types Packs/Day Years Used Date Smoking Tobacco: Never Smokeless Tobacco: Never Tobacco Cessation:Counseling Given: Not Answered Alcohol Use Standard Drinks/Week Comments Never 0 (1 standard drink = 0.6 oz pur e alcohol) Education Answer Date Recorded Are you interested in more education? Not on keyon e 04/04/2024 Are you concerned about learning? Not on file 04/04/2024 No 04/04/2024 No 04/04/2024 Food Answer Date Recorded Within the past 6 months we worried whether our food would run out before we got money to buy more. Never True 12/08/2024 Within the past 6 months the food we bought just didn't last and we didn't have enough money to get more. Never True Residential Stability Answer Date Recor ded What is your housing situation today? I have juanita sing 12/08/2024 How many times have you move d in the past 12 months? Zero (I did not move) 12/08/2024 Paying for Meds Answer Date Recorded Do you have trouble paying for medicines? No 12/08/2024 Paying Utility Bills Answer Date Record ed Do you have trouble paying your heating or elect ricity bill? No 12/08/2024 Transportation Answer Date Recorded Has the lack of transportati on kept you from medical appointments or from getting medications? No 12/08/2024 Digital Access Answer Date Recorded No 12/08/2024 Yes 12/08/2024 Do you have reliable internet access at home? Ye s 12/08/2024 Do you have a device (e.g., phone, tablet, computer) with a working camera? Yes 12/08/2024 Intimate Partner Violence Answer Date R ecorded Are you denied basic needs s uch as food, clothing, or medical care? No 12/07/2024 In the past 12 months have y ou been in a relationship with a person who hurts, threatens, or tries to control you? No 12/07/2024 Are you denied basic needs s uch as food, clothing, or medical care? No 12/07/2024 In the past 12 months have y ou been in a relationship with a person who hurts, threatens, or tries to control you? 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 file Not on file Not on file Last Filed Vital Signs Vital Sign Reading Time Taken Comments Blood Pressure 120/78 02/23/2025 9:00 AM EDT Pulse 93 02/23/2025 9:00 AM EDT Temperature 36.6 C (97.8 F) 02/23/2025 9:00 AM EDT Respiratory Rate 18 12/08/2024 8:00 AM EDT Oxygen Saturation 98% 02/23/2025 9:00 AM EDT Inhaled Oxygen Concentration - - Weight 81.6 kg (180 lb) 02/23/2025 9:00 AM EDT Height 162.6 cm (5' 4.02 ) 02/23/2025 9:00 AM ED T Body Mass Index 30.88 02/23/2025 9:00 AM EDT Plan of Treatment Health Maintenance Due Date Last Done Comments HEPATITIS C SCREENING 2006 HIV ONE-TIME SCREENING (18-6 5 YEARS) 2006 PNEUMOCOCCAL VACCINES (0-49 years) (1 of 2 - PCV) 2007 PAP SMEAR 2009 COVID-19 VACCINE (3 - Pfizer risk series) 11/08/2020 10/11/2020, 09/20/2020 DIABETIC EYE EXAM 12/06/2024 URINE MICROALBUMIN/CREATININ E RATIO 12/06/2024 HEMOGLOBIN A1C 12/18/2024 06/19/2024 LIPID PANEL 06/19/2025 06/19/2024 DEPRESSION SCREENING 06/27/2025 06/27/2024 BLOOD PRESSURE 08/25/2025 02/23/2025 Adult Td,Tdap Booster 07/11/2034 07/11/2024 , 07/16/2010 SMOKING STATUS SCREENING (On ce After 26 Yrs) Completed 02/23/2025 HEPATITIS A VACCINES Aged Out No long er eligible based on patient's age to complete this topic HIB VACCINES Aged Out No longer eligi ble based on patient's age to complete this topic MENINGOCOCCAL VACCINES (ACWY) Aged Out No longer eligible based on patient's age to complete this topic MENINGOCOCCAL VACCINES (B) Aged Out N o longer eligible based on patient's age to complete this topic Medical Devices Not on file Procedures Procedure Name Priority Date/Time Associated Diagnosis Comments HEMOGLOBIN A1C Routine 06/19/2024 8:36 AM EDT Morbid obesity with BMI of 40.0-44.9, adult LIPID PANEL Routine 06/19/2024 8:36 AM EDT Morbid obesity with BMI of 40.0-44.9, adult from Last 3 Months or Most Recently Relevant to Health Maintenance Results * Hemoglobin A1c (06/19/2024 8:36 AM EDT) HEMOGLOBIN A1C 5.6 4.3 - 5.8 % [facility] Blood 06/19/2024 8:36 AM EDT 06/19/2024 9:00 AM EDT us Jerri Chairez MD LAB BLOOD ORDERABLES Final Result [address] [address] * (ABNORMAL) Lipid panel (06/19/2024 8:36 AM EDT) HDL 57 mg/dL [facility] Comment: Interpretation <40 mg/dL: Low HDL cholesterol (major risk factor for CHD) Greater than or equal to 60 mg/dL: High HDL cholesterol ( negative risk factor for CHD) HDL - cholesterol is affected by a number of factors, e.g. smoking, excerise, hormones, sex and age. CHOLESTEROL 156 0 - 240 mg/dL [facility] TRIGLYCERIDES 119 30 - 160 mg/dL [facility] LDL 75 50 - 129 mg/dL [facility] Comment: LDL levels in terms of risk for coronary heart disease: <100 mg/dL: Optimal 100-129 mg/dL: Near or above optimal 130-159 mg/dL: Borderline high 160-189 mg/dL: High >190 mg/dL: Very High CARDIAC RISK RATIO 2.7(L) 3.3 - 4.4 [facility] Blood 06/19/2024 8:36 AM EDT 06/19/2024 8:59 AM EDT us Jerri Chairez MD LAB BLOOD ORDERABLES Final Result [facility] [address] [place] [address] from Last 3 Months or Most Recently Relevant to Health Maintenance Insurance [facility] [place] [address] [place] [address]O [facility] [address] [address] [place] [address] HMO [facility] HMO [facility] Address: [address] [address] Advance Directives For more information, please contact: [phone] (9AM - 5PM [facility], Wednesday-Wednesday) Documents on File Type Date Recorded Patient Laboratory Phlebotomist Expl anation Healthcare Proxy 12/12/2024 1:06 PM * Full Code (Latest Code Status on File) Date Activated Date Inactivated Comments 12/07/2024 11:59 AM Question Answer Comments Code Status Confirmed With: Patient * Full Code Date Activated Date Inactivated Comments 12/07/2024 6:18 AM 12/07/2024 11:59 AM Question Answer Comments Code Status Confirmed With: Patient Care Teams Director Of Resource Development Relationship Specialty Start Date End Date Fabricio Willoughby PA [address] [place] [id number] PCP - General Physician Convention Worker 04/04/24 Additional Source Comments The information contained in this document represents components of the legal health record. It is not the complete legal health record.[facility]
--- OUTSIDE RECORDS SUMMARY | 2025-05-02 07:56 | XMS_ITS | Encounter Summary ---
Author Organization 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 Wish to be (Past 1 Month) No 12/07/2024 6:00 PM EDT Oralia Rhodes, HEVER 2. Non-Specific Active Suicidal Thoughts (Past 1 Month) No 12/07/2024 6:00 PM SHOLAT Oralia Rhodes, HEVER 6. Suicidal Behavior (Lifetime) No 12/07/2024 6:00 PM EDT Oralia Rhodes, HEVER documented as of this encounter Plan of Treatment Not on file documented as of this encounter Visit Diagnoses Not on filedocumented in this encounter Additional Health Concerns Assessment Noted Time PHQ-2 Depression Total Score: 0 06/27/20 24 1:47 PM EDT documented as of this encounter Care Teams Phone Specialist Relationship Specialty Start Date End Date Fabricio Willoughby PA [address] [place] [id number] PCP - General Physician Wildlife Refuge Specialist 04/04/24 documented as of this encounter Additional Source Comments The information contained in this document represents components of the legal health record. It is not the complete legal health record.[facility]
--- OUTSIDE RECORDS SUMMARY | 2025-05-02 07:57 | XMS_ITS | Patient Health Record ---
Author Organization [facility] [address] Address [address] [place] [address] Care Team Providers Care Plant Associate Name Role Phone NEHEMIAS BOURNE Unavailable [phone] DOUGLAS COLE Unavailable [phone] BIRCASIMIRO RIANA Unavailable [phone] Allergies Allergen (clinical drug ingredient) Drug/Non Drug Allergy documented on EMR Reaction Allergy Type Onset Date Status Feathers feathers (uncoded) Unknown Allergy A ctive grass (uncoded) Unknown Allergy Acti ve dulaglutide Trulicity rash Drug Allergy Activ e Dust Mites Unknown Allergy Active Pollen Pollen Unknown Allergy Active Results Component Value Reference Range Notes N.Meningitidis A/C/W-135/Y I gG Reviewed date:01/19/2025 10:17:42 AM Interpretation: Performing Lab:[facility], [address] [place] [address], Phone - [phone], Director - [facility] Notes/Report: N.Meningitidis Type A IgG 10.1 N.Meningitidis [...] developed and its performance characteristics determined by [facility]. It has not been cleared or approved by the US Food and Drug Administration. This test was performed in a CLIA certified laboratory and is intended for clinical purposes. N.Meniniivannatidis Type W-135 IgG 1.2 T4F+T3Free Reviewed date:01/10/2025 03:37:52 PM Interpretation: Performing Lab:[facility], [address] [place] [address], Phone - [phone], Director - Jassi Notes/Report: Thyroxine (T-4), Serum 9.5 Reference Range: Adults: 4.2 - 13.0 Free T-3 3.1 Reference Range: >=20y: 2.0 - 4.4 Triiodothyronine (T-3), Serum 111 Reference Range: Adults: 55 - 170 Free Thyroxine 1.44 Reference Range: >=20y: 0.82 - 1.77 Hemoglobin A1c Reviewed date:01/10/2025 03:37:52 PM Interpretation: Performing Lab:[facility] [address] [place] [address], Phone - [phone], Director - Jassi Notes/Report: Hemoglobin A1c 5.0 Reference Range: [place] [employer] (ADA) Guidelines: <5.7: Decreased risk for diabetes 5.7 - 6.4: Increased risk for diabetes >6.4: Ongoing Hyperglycemia of any cause <7.0: Glycemic control for adults with diabetes Estimated Average Glucose 97 Comp. Metabolic Panel (14)-3 01523 Reviewed date:01/16/2025 08:50:46 AM Interpretation: Performing Lab:[facility] Ace[facility] [address] [place] [address], [place], Phone - [phone], Director - Jassi Notes/Report: Glucose 107 70-99 [...] IU/L ALT (SGPT) 18 0-32 IU/L Lipid Panel-[id number] Reviewed date:01/16/2025 08:50:46 AM Interpretation: Performing Lab:[facility], [address] [facility], Phone - [phone], Director - Jassi Notes/Report: Cholesterol, Total 185 100-199 mg/dL Triglycerides 110 0-149 mg/dL HDL Cholesterol 48 >39 mg/dL VLDL Cholesterol Alexis 20 5-40 mg/dL LDL Chol Calc (NIH) 117 0-99 mg/dL Vitamin D, 07-Zcgqzop-[id number] Reviewed date:01/10/2025 03:37:29 PM Interpretation: Performing Lab:[facility], [address] [facility], Phone - [phone], Director - Jassi Notes/Report: Vitamin D, 25-Hydroxy 45.4 30.0-100.0 ng/mL Vitamin D deficiency has been defined by the [place] of Medicine and an Endocrine Society practice guideline as a level of serum 25-OH vitamin D less than 20 ng/mL (1,2). The Endocrine Society went on to further define vitamin D insufficiency as a level between 21 and 29 ng/mL (2). 1. IOM ([place] of Medicine). 2010. Dietary reference intakes for calcium and D. [place]: The National Academies Press. 2. Phillip MF, Hazel REAL, Sarah ADAN, et al. Evaluation, treatment, and prevention of vitamin D deficiency: an Endocrine Society clinical practice guideline. JCEM. 2010; 96(7):1911-30. CBC With Differential/Platel et-[id number] Reviewed date:01/10/2025 03:40:05 PM Interpretation: Performing Lab:[facility], Phone - [phone], Director - MDJodry Notes/Report: WBC 4.4 3.4-10.8 [...] % Immature Grans (Abs) 0.0 0.0-0.1 x10E3/uL TSH-[id number] Reviewed date:01/10/2025 03:37:52 PM Interpretation: Performing Lab:[facility], [address] [place] [address], Phone - [phone], Director - MDJodry Notes/Report: TSH 1.270 0.450-4.500 uIU/mL Urinalysis, Complete-[id number] Reviewed date:01/16/2025 08:50:46 AM Interpretation: Performing Lab:[facility] [address] [place] [address], Phone - [phone], Director - MDJodry Notes/Report: Specific [place] 1.020 1.005-1.030 pH 5.5 5.0-7.5 Urine-Color Yellow [...] Oxalate N/A Bacteria Few None seen/Few Vitamin [id number] Reviewed date:01/10/2025 03:37:29 PM Interpretation: Performing Lab:[facility], [facility], Phone - [phone], Director - MDYuridiay Notes/Report: Vitamin B12 676 611-8210 pg/mL Comp. Metabolic Panel (14)-3 Reviewed date:07/05/2024 08:09:41 AM Interpretation: Performing Lab:[facility], [facility], [place], Phone - [phone], Director - MDJodry Notes/Report: Glucose 150 70-99 [...] IU/L ALT (SGPT) 52 0-32 IU/L Lipid Panel-[id number] Reviewed date:07/05/2024 08:01:37 AM Interpretation: Performing Lab:[facility], [address] [facility], [place], Phone - [phone], Director - MDJodry Notes/Report: Cholesterol, Total 140 100-199 mg/dL Triglycerides 119 0-149 mg/dL HDL Cholesterol 53 >39 mg/dL VLDL Cholesterol Alexis 21 5-40 mg/dL LDL Chol Calc ([facility]) 66 0-99 mg/dL QuantiFERON-TB Gold Plus-[id number] Reviewed date:01/18/2025 07:54:16 AM Interpretation: Performing Lab:[facility], [address] [place] [address], Phone - [phone], Director - Jassi Notes/Report: QuantiFERON Incubation Incubation [...] Nil Value 0.04 QuantiFERON Mitogen Value 7.28 Hgb A1c with eAG Estimation- [id number] Reviewed date:07/05/2024 08:01:37 AM Interpretation: Performing Lab:[facility], [address] [place] [address], Phone - [phone], Director - Jassi Notes/Report: Hemoglobin A1c 5.5 4.8-5.6 % . Prediabetes: 5.7 - 6.4 Diabetes: >6.4 Glycemic control for adults with diabetes: <7.0 Estim. Avg Glu (eAG) 111 Hepatitis B Surf Ab Quant-00 [id number] Reviewed date:01/18/2025 07:54:16 AM Interpretation: Performing Lab:[facility], [address] [place] [address], [place], Phone - [phone], - Jassi Notes/Report: Hepatitis B Surf Ab Quant 30.7 Immunity>10 mIU /mL Status of Immunity Anti-HBs Level Inconsistent with Immunity 0.0 - 10.0 Consistent with Immunity >10.0 CBC With Differential/Platel et-[id number] Reviewed date:07/05/2024 08:01:37 AM Interpretation: Performing Lab:[facility], [address] [facility], Phone - [phone], Director - Jassi Notes/Report: WBC 8.3 3.4-10.8 [...] % Immature Grans (Abs) 0.0 0.0-0.1 x10E3/uL TSH-[id number] Reviewed date:07/05/2024 08:01:37 AM Interpretation: Performing Lab:[facility] [place], [address] [facility], Phone - [phone], Director - Jassi Notes/Report: TSH 2.160 0.450-4.500 uIU/mL Urinalysis, Routine-[id number] Reviewed date:07/05/2024 08:01:37 AM Interpretation: Performing Lab:[facility] [place], [address] [facility], Phone - [phone], Director - Jassi Notes/Report: Specific [place] 1.007 1.005-1.030 pH 6.5 5.0-7.5 Urine-Color Yellow Yellow Appearance Clear Clear WBC Esterase Negative Negative Protein Negative Negative/Trace Glucose Negative Negative Ketones Negative Negative Occult Blood Negative Negative Bilirubin Negative Negative Urobilinogen,Semi-Qn 0.2 0.2-1.0 mg/dL Nitrite, Urine Negative Negative Microscopic Examination Micr oscopic not indicated and not performed. Reason For Referral Diagnosis 1 Psoriasis, unspecifi ed (L40.9) Referral Organization [facility] KRISTYN ROBERT Referring Provider First Name NEHEMIAS Referring Provider Last Name TAYLA Referring Provider Speciality Internal M edicine Referred Provider Specialty Dermatology General Notes Rubia Figueroa 2023 09:55:51 AM > referral sent to [facility] , [address] [place] [address], [address], [place] [address], [email or web address] , Referral Priority Routine Medications Medication SIG (Take, Route, Frequency, Duration) Notes Start Date End Date Status Fluocinolone Acetonide 0.01 % APPLY 3-4 DROPS TO BOTH EAR DAILY UNTIL SYMPTOMS IMPROVED. THEN USE NEEDED FOR MAINTENANCE. Otic; Duration: 30 Days Active Docusate Sodium 100 MG TAKE 1 CAPSULE BY MOUTH TWICE A DAY Oral; Duration: 30 Days Active Vitamin D3 50 MCG (1999 UT) TAKE 1 CAPSU LE BY MOUTH EVERY DAY FOR 90 DAYS; Duration: 90 Active Clobetasol Propionate 0.05 % PLEASE SEE ATTACHED FOR DETAILED DIRECTIONS External; Duration: 30 Days Active Vitamin B-1 Active CVS D3 50 MCG (1999 UT) 1 capsule Orally Once a day; Duration: 90 days Active Otezla 30 MG 1 tablet Orally Twic e a day Active Rosuvastatin Calcium 5 MG TAKE 1 TABLET BY MOUTH EVERY DAY; Duration: 90 Active Famotidine 20 MG 1 tablet as needed O rally Twice a day Active Montelukast Sodium 10 MG 1 tablet Orally Once a day; Duration: 90 days Active Loratadine 10 MG TAKE 1 TABLET BY BLAISE TH EVERY DAY FOR 90 DAYS; Duration: 90 Active Paxlovid (300/100) 20 x 150 MG & 10 x 100MG 3 tablets Orally Twice a day; Duration: 5 days 04/27/2025 Active Albuterol Sulfate (2.5 MG/3ML) 0.083% 3 mL as needed Inhalation every 6 hrs; Duration: 30 days 09/12/2024 Active Immunizations Vaccine Route Administration Date Status Comme nts Tdap IM Intramuscular 07/11/2024 Administered Social History Tobacco Use: Social History Observation Description Date Details (start date - stop date) Never Smoker NA - NA Tobacco Use/Smoking Question Answer Notes Are you a nonsmoker Section Notes: medical office receptionist assistant medical office receptionist assistant medical office receptionist assistant medical office receptionist assistant See HPI medical office receptionist assistant medical office receptionist assistant medical office receptionist assistant medical office receptionist assistant medical office receptionist assistant medical office receptionist assistant medical office receptionist assistant medical office receptionist assistant medical office receptionist assistant medical office receptionist assistant medical office receptionist assistant See HPI medical office receptionist assistant medical office receptionist assistant medical office receptionist assistant medical office receptionist assistant medical office receptionist assistant medical office receptionist assistant medical office receptionist assistant See HPI Problems Problem Type SNOMED Code ICD Code Onset Dates Problem Status W/U Status Risk Notes Problem 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) Diabetes mellitus due to underlying 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 complications (E08.9) Active confirmed Problem Hyperglycemia due to type 2 diabetes mellitus (851222189422061) Type 2 diabetes mellitus with hyperglycemia (E11.65) Active confirmed Problem Disorder due to type 2 diabetes mellitus (610458689) Type 2 diabetes mellitus with unspecified complications (E11.8) Active confirmed Problem Diabetes insipidus (5395114478) Diabetes insipidus (E23.2) Active confirmed Problem Vitamin D deficiency (99177601) Vitamin D deficiency, unspecified (E55.9) Active confirmed Problem Morbid obesity (disorder) (555589576) Morbid (severe) obesity due to excess calories (E66.01) Active confirmed Problem Mixed hyperlipidemia (844992117) Mixed hyperlipidemia (E78.2) Active confirmed Problem Hyperlipidemia (64503685) Hyperlipidemia, unspecified (E78.5) Active confirmed Problem Psoriasis (0935066) Psoriasis, unspecified (L40.9) Active confirmed Problem Nasal congestion (37022666) Nasal congestion (R09.81) Active confirmed Problem Adult health examination (804851239) Encounter for general adult medical examination without abnormal findings (Z00.00) Active confirmed Problem Hyperlipidaemia (56163307) Hyperlipidemia, unspecified hyperlipidemia type (E78.5) Active confirmed Problem Acquired hypothyroidism (855328244) Acquired hypothyroidism (E03.9) Active confirmed Problem Psoriatic arthritis (998258248) Psoriatic arthritis (L40.50) Active confirmed Problem Gallstone (881591703) Gall stones (K80.20) Active confirmed Problem Hypothyroidism (50450257) Hypothyroidism, unspecified type (E03.9) Active confirmed Problem Annual health maintenance examination (10128332) Annual physical exam (Z00.00) Active confirmed Problem Seasonal allergy (865411344) Seasonal allergies (J30.2) Active confirmed Problem Vitamin D deficiency (92010318) Vitamin D deficiency (E55.9) Active confirmed Problem Elevated liver enzymes level (754253870) Elevated liver enzymes (R74.8) Active confirmed Problem Fatty liver (472389401) Fatty liver (K76.0) Active confirmed Problem Obstructive sleep apnea syndrome (86995079) СЕРГЕЙ (obstructive sleep apnea) (G47.33) Active confirmed Problem Body mass index 40+ - morbidly obese (367165421) BMI 40.0-44.9, adult (Z68.41) Active confirmed Problem Gastroesophageal reflux disease without esophagitis (271423823) Gastroesophageal reflux disease without esophagitis (K21.9) Active confirmed Problem Type II diabetes mellitus without complication (942342726) Type 2 diabetes mellitus without complication, unspecified whether terminal press operator insulin use (E11.9) Active confirmed Problem Mild intermittent asthma (800841120) Mild intermittent asthma without complication (J45.20) Active confirmed Problem Gastroesophageal reflux disease (069638096) Gastroesophageal reflux disease, unspecified whether esophagitis present (K21.9) Active confirmed Problem Polycystic ovary syndrome (disorder) (396736768) PCOS (polycystic ovarian syndrome) (E28.2) Active confirmed Problem Essential hypertension (92862892) High blood pressure determined by examination (I10) Active confirmed Problem Vitamin B>12< deficiency anaemia (03742208) Anemia due to vitamin B12 deficiency, 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) Active confirmed Problem Hyperglycemia due to type 2 diabetes mellitus (463525701896842) Type 2 diabetes mellitus with hyperglycemia, without long-term current use of insulin (E11.65) Active confirmed Problem Mass of axilla (880417225) Mass of left axilla (R22.32) Active confirmed Problem Gastroesophageal reflux disease (555990341) GERD without esophagitis (K21.9) Active confirmed Problem Amnesia (10301000) Memory change s (R41.3) Active confirmed Problem Gallstones (018769705) Gallstones (K80.20) Active confirmed Problem Lipid screening (933225760) Lipid screening (Z13.220) Active confirmed Problem Unable to concentrate (finding) (37383970) Difficulty concentrating (R41.840) Active confirmed Problem Female infertility (4056230) Infertility, female (N97.9) Active confirmed Vital Signs Heart Rate 101 /min 12/25/2024 Oximetry 97 % 12/25/2024 Blood pressure diastolic 82 mm Hg 12/25/2024 Height 64 in 12/25/2024 Blood pressure systolic 126 mm Hg 12/25/2024 Weight 196.8 lbs 12/25/2024 BMI 33.78 kg/m2 12/25/2024 Encounters Encounter Location Date Provider Diagnosis [facility] [address] [place], [place] 07/11/2024 NEHEMIAS BOURNE GERD without esophag itis K21.9 ; Wellness examination Z00.00 ; Type 2 diabetes mellitus with hyperglycemia E11.65 ; Gastroesophageal reflux disease without esophagitis K21.9 ; Mixed hyperlipidemia E78.2 ; Infertility, female N97.9 ; Seasonal allergies J30.2 ; Encounter for immunization Z23 ; Pain in right hip M25.551 and Pain in left hip M25.[address] [facility] [address] [place] [address] 09/12/2024 DOUGLAS DOUGLAS Close exposure to 2019-nCoV Z20.822 ; RSV (respiratory syncytial virus infection) B33.8 ; RSV exposure Z20.828 and Acute cough R05.[address] [facility], [place] 12/25/2024 NEHEMIAS BOURNE GERD without esophag itis K21.9 ; Psoriatic arthritis L40.50 ; Mixed hyperlipidemia E78.2 ; Infertility, female N97.9 ; Seasonal allergies J30.2 ; Pain in right hip M25.551 ; Pain in left hip M25.552 ; Difficulty concentrating R41.840 and Hyperglycemia R73.[address] [place] [address] 05/18/2024 NEHEMIAS BOURNE [facility] [address] [place], [place] 07/07/2024 NEHEMIAS BOURNE [facility] [address] [place] [address] 07/11/2024 NEHEMIAS BOURNE [facility] [address] [place] [address] 09/12/2024 NEHEMIAS BOURNE [facility] [address] [place] [address] 01/02/2025 NEHEMIAS BOURNE Need for hepatitis B screening test Z11.59 and Immunity to measles, mumps, and rubella determined by serologic test Z01.[address] [facility] [place] [address] 01/16/2025 NEHEMIAS BOURNE [facility] [address] [place] [address] 01/23/2025 NEHEMIAS BOURNE [facility] [address] [place] [address] 01/25/2025 NEHEMIAS BOURNE [facility] [address] [place] [address] 04/26/2025 NEHEMIAS BOURNE [facility] [address] [place] [address] 04/27/2025 NEHEMIAS BOURNE [facility] [address] [place] [address] 05/18/2024 NEHEMIAS BOURNE [facility] [address] [place] [address] 06/23/2024 NEHEMIAS BOURNE [facility] [address] [place] [address] 07/20/2024 NEHEMIAS BOURNE [facility] [address] [place] [address] 08/23/2024 NEHEMIAS BOURNE [facility] [address] [place] [address] 09/12/2024 NEHEMIAS BOUREN [facility] [address] [place] [address] 09/27/2024 NEHEMIAS BOURNE [facility] [address] [place] [address] 10/30/2024 NEHEMIAS BOURNE [facility] [address] [place] [address] 01/04/2025 NEHEMIAS BOURNE Encounter for genera l adult medical examination without abnormal findings Z00.00 [facility] [address] [address] 01/08/2025 NEHEMIAS BOURNE [facility] [address] [place] [address] 01/09/2025 NEHEMIAS BOURNE [facility] [address] [address] 01/15/2025 NEHEMIAS BOURNE Encounter for genera l adult medical examination without abnormal findings Z00.00 [facility] [address] [address] 01/15/2025 NEHEMIAS BOURNE [facility] [address] [address] 01/22/2025 NEHEMIAS BOURNE Assessments Encounter Date Diagnosis (ICD Code) Assessment Notes Treatment Notes Treatment Clinical Notes Section Notes 07/11/2024 Wellness examination (ICD-10 - Z00.00) Pleasant 34-year-old female here for complete physical exam. # Patient needs a letter of support from fax over to general surgical care and bariatric surgery at [phone]. Will fill it out and fax over. [...] is unsure any further information. #Referring to [facility] for psoriasis. Also has rash of [...] with results of x-ray in the meantime. [facility] in the meantime as well. Patient [...] log exercise and discussed fitness Apps like [employer] which can help keep log off calories [...] Dictation was accomplished with the use of [employer] voice recognition software, prone to medical misidentifications [...] general surgical care and bariatric surgery at [phone]. Will fill it out and fax over. [...] is unsure any further information. #Referring to [facility] for psoriasis. Also has rash of [...] with results of x-ray in the meantime. [facility] in the meantime as well. Patient [...] log exercise and discussed fitness Apps like [employer] which can help keep log off calories [...] Dictation was accomplished with the use of [employer] voice recognition software, prone to medical misidentifications [...] Dictation was accomplished with the use of [employer] voice recognition software, prone to medical misidentifications [...] Dictation was accomplished with the use of [employer] voice recognition software, prone to medical misidentifications [...] still on pureed diet, following with a literary agent, and surgeon. Pleased with progress overall. Taking [...] with improvement in joint pain. #Referring to [facility] for psoriasis. Prescribed clobetasol and fluocinolone [...] some inattentiveness. Given information for [facility] Follow-up in July [...] Dictation was accomplished with the use of [employer] voice recognition software, prone to medical misidentifications [...] still on pureed diet, following with a literary agent, and surgeon. Pleased with progress overall. Taking [...] with improvement in joint pain. #Referring to [facility] for psoriasis. Prescribed clobetasol and fluocinolone [...] some inattentiveness. Given information for [facility] Follow-up in July [...] Dictation was accomplished with the use of [employer] voice recognition software, prone to medical misidentifications [...] still on pureed diet, following with a literary agent, and surgeon. Pleased with progress overall. Taking [...] with improvement in joint pain. #Referring to [facility] for psoriasis. Prescribed clobetasol and fluocinolone [...] some inattentiveness. Given information for [facility] Follow-up in July [...] Dictation was accomplished with the use of [employer] voice recognition software, prone to medical misidentifications [...] Dictation was accomplished with the use of [employer] voice recognition software, prone to medical misidentifications [...] general surgical care and bariatric surgery at [phone]. Will fill it out and fax over. [...] is unsure any further information. #Referring to [facility] for psoriasis. Also has rash of [...] with results of x-ray in the meantime. [facility] in the meantime as well. Patient [...] log exercise and discussed fitness Apps like [employer] which can help keep log off calories [...] Dictation was accomplished with the use of Dragon voice recognition software, prone to medical misidentifications [...] general surgical care and bariatric surgery at [phone]. Will fill it out and fax over. [...] is unsure any further information. #Referring to [facility] for psoriasis. Also has rash of [...] with results of x-ray in the meantime. [facility] in the meantime as well. Patient [...] log exercise and discussed fitness Apps like [employer] which can help keep log off calories [...] Dictation was accomplished with the use of [employer] voice recognition software, prone to medical misidentifications [...] Dictation was accomplished with the use of [employer] voice recognition software, prone to medical misidentifications [...] still on pureed diet, following with a literary agent, and surgeon. Pleased with progress overall. Taking [...] with improvement in joint pain. #Referring to [facility] for psoriasis. Prescribed clobetasol and fluocinolone [...] some inattentiveness. Given information for [facility] Follow-up in July [...] Dictation was accomplished with the use of [employer] voice recognition software, prone to medical misidentifications [...] still on pureed diet, following with a literary agent, and surgeon. Pleased with progress overall. Taking [...] with improvement in joint pain. #Referring to [facility] for psoriasis. Prescribed clobetasol and fluocinolone [...] some inattentiveness. Given information for [facility] Follow-up in July [...] Dictation was accomplished with the use of [employer] voice recognition software, prone to medical misidentifications [...] general surgical care and bariatric surgery at [phone]. Will fill it out and fax over. [...] is unsure any further information. #Referring to [facility] for psoriasis. Also has rash of [...] with results of x-ray in the meantime. [facility] in the meantime as well. Patient [...] log exercise and discussed fitness Apps like [employer] which can help keep log off calories [...] Dictation was accomplished with the use of [employer] voice recognition software, prone to medical misidentifications [...] general surgical care and bariatric surgery at [phone]. Will fill it out and fax over. [...] is unsure any further information. #Referring to [facility] for psoriasis. Also has rash of [...] with results of x-ray in the meantime. [facility] in the meantime as well. Patient [...] log exercise and discussed fitness Apps like [employer] which can help keep log off calories [...] Dictation was accomplished with the use of [employer] voice recognition software, prone to medical misidentifications [...] still on pureed diet, following with a literary agent, and surgeon. Pleased with progress overall. Taking [...] with improvement in joint pain. #Referring to [facility] for psoriasis. Prescribed clobetasol and fluocinolone [...] some inattentiveness. Given information for [facility] Follow-up in July [...] Dictation was accomplished with the use of [employer] voice recognition software, prone to medical misidentifications [...] still on pureed diet, following with a literary agent, and surgeon. Pleased with progress overall. Taking [...] with improvement in joint pain. #Referring to [facility] for psoriasis. Prescribed clobetasol and fluocinolone [...] some inattentiveness. Given information for [facility] Follow-up in July [...] Dictation was accomplished with the use of [employer] voice recognition software, prone to medical misidentifications [...] general surgical care and bariatric surgery at [phone]. Will fill it out and fax over. [...] is unsure any further information. #Referring to [facility] for psoriasis. Also has rash of [...] with results of x-ray in the meantime. [facility] in the meantime as well. Patient [...] log exercise and discussed fitness Apps like [employer] which can help keep log off calories [...] Dictation was accomplished with the use of [employer] voice recognition software, prone to medical misidentifications [...] general surgical care and bariatric surgery at [phone]. Will fill it out and fax over. [...] is unsure any further information. #Referring to [facility] for psoriasis. Also has rash of [...] with results of x-ray in the meantime. [facility] in the meantime as well. Patient [...] log exercise and discussed fitness Apps like [employer] which can help keep log off calories [...] Dictation was accomplished with the use of [employer] voice recognition software, prone to medical misidentifications [...] still on pureed diet, following with a literary agent, and surgeon. Pleased with progress overall. Taking [...] with improvement in joint pain. #Referring to [facility] for psoriasis. Prescribed clobetasol and fluocinolone [...] some inattentiveness. Given information for [facility] Follow-up in July [...] Dictation was accomplished with the use of [employer] voice recognition software, prone to medical misidentifications [...] still on pureed diet, following with a literary agent, and surgeon. Pleased with progress overall. Taking [...] with improvement in joint pain. #Referring to [facility] for psoriasis. Prescribed clobetasol and fluocinolone [...] some inattentiveness. Given information for [facility] Follow-up in July [...] Dictation was accomplished with the use of [employer] voice recognition software, prone to medical misidentifications [...] general surgical care and bariatric surgery at [phone]. Will fill it out and fax over. [...] is unsure any further information. #Referring to [facility] for psoriasis. Also has rash of [...] with results of x-ray in the meantime. [facility] in the meantime as well. Patient [...] log exercise and discussed fitness Apps like [employer] which can help keep log off calories [...] Dictation was accomplished with the use of [employer] voice recognition software, prone to medical misidentifications [...] general surgical care and bariatric surgery at [phone]. Will fill it out and fax over. [...] is unsure any further information. #Referring to [facility] for psoriasis. Also has rash of [...] with results of x-ray in the meantime. [facility] in the meantime as well. Patient [...] Dictation was accomplished with the use of [employer] voice recognition software, prone to medical misidentifications [...] BOURNE, 07/18/2025 08:00:00 AM, [address], [place], [address], Insurance Providers Payer Name Payer Address Payer Phone Subscriber Number Group Number Insured Name Patient Relationship to Insured Coverage Start Date Coverage End Date [facility] [address] [place] [address] [id number] OREILLY Self - patient is the insured Medical (General) History Medical History History ICD Code Diabetes mellitus with no complication E 11.9 Seasonal allergies J30.2 Hyperlipidemia, mild E78.5 GERD without esophagitis K21.9 Vitamin D deficiency E55.9 Psoriatic arthritis L40.50 Surgical History Surgery Date(Month/Year) egg retrevial 11/2023 gastric sleeve 12/07/24
== END 2025-05-02 08:22 | disposition home or self-care (01) ==
LOC: HO.HWS 07:54
PROVIDERS: PCP Internal Medicine; Visit Provider Advanced Practice Midwife
DX: Z30.018 Encounter for initial prescription of other contraceptives (principal); Z30.432 Encounter for removal of intrauterine contraceptive device
CPT/HCPCS: 58301; 99212

== ENCOUNTER → 2025-05-02 07:53 | Outpatient (BNVA) | payer OTHER, SELFPAY | PROVIDERS: PCP Internal Medicine; Visit Provider Advanced Practice Midwife | DX: Z30.432 Encounter for removal of intrauterine contraceptive device (principal) | CPT/HCPCS: 58301 ==

== ENCOUNTER 2025-08-14 12:35 | Outpatient (AMB) | payer OTHER, SELFPAY ==
--- NOTE | 2025-08-14 12:48 | A.OFFVIS_ITS ---
Vital Signs 08/14/25 12:57 Height 5 ft 4 in Weight 169 lb BMI 29.0 BP 106/76 Intake Visit Reasons: med review Intake Note: med review for nuvaring. been using it for 3 months. 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 Accompanied by: Self / Same As Patient Allergies No Known Allergies Allergy (Verified 08/14/25 12:53) Medication List - Last Reconciled 08/14/25 by Indira Yañez LPN apremilast (Otezla) 30 mg PO BID blood sugar diagnostic As directed cholecalciferol (vitamin D3) 50 mcg PO DAILY etonogestrel-ethinyl estradiol 0.12-0.015 mg/24 hr (NuvaRing) 1 vag ring vaginal Q4W 3 weeks famotidine 20 mg PO BID lancets As directed [id number]-FA-vit K 45 mg iron- 800 mcg-120 mcg (Bariatric Multivitamins) caps PO Is last menstrual period known: Yes Last menstrual period: 07/20/25 Do you need a note to return to daycare/school/sports/work: No HPI Comments Details: Patient is here today for control follow up, current NuvaRing user. Doing well with the device, interested in skipping cycles with continuous use. She d enies any contraindications to control such as: migraines with aura, history of DVT or pulmonary emboli, high blood pressure, liver disease, thrombolic disorders, Lupus, +ANAIS, breast cancer, or smoking. [facility] Medical History Encounter for prescription for nuvaring Irregular bleeding Diabetes mellitus Surgical History S/P gastric sleeve procedure Family History Mother Diabetes Father Diabetes Hypertension Kidney failure Maternal Aunt Colon cancer Social History Household Members: Significant Other Alcohol intake: current Alcohol intake frequency: holidays/special occasions only Patient Tobacco Use Status: Never used Tobacco Sexual orientation: Straight/Heterosexual Gender identity: Female Female Reproductive History Menstrual Age of Menarche: 8 Date of last menstrual period: 07/20/25 control method: vaginal ring Total pregnancies: 0 Number of Living Children: 0 Review of Systems Const All systems reviewed & are unremarkable except as noted in HPI and below Endo Reports no additional complaints Physical Exam Vital Signs: Last Vital Signs BP 106/76 08/14/25 12:57 BMI result Body Mass Index 29.0 Const General: cooperative, healthy appearing and no acute distress Psych Appearance: well kempt Attitude: cooperative Thought process: Normal thought process present Assessment & Plan Assessment & Plan (1) Encounter for surveillance of contraceptive device: Code(s): Z30.40 - Encounter for surveillance of contraceptives, unspecified Plan Counseled regarding continuous usage, considering taking it out quarterly. Refills sent into pharmacy. Annual exam scheduled for March 2026. control hormone use warnings: go to ER if and loss of vision, blindness, severe headache, chest pain or difficulty breathing, severe abdominal pain, or any pain or swelling in an extremity. The patient expressed understanding and agreement with the plan of care. All of her questions and concerns were addressed to the best of my ability. This note is constructed using voice recognition software. While every effort has been made to ensure accuracy, transcription specialist errors may have been included. Medications: Changed From etonogestrel-ethinyl estradiol 0.12-0.015 mg/24 hr (NuvaRing) Insert 1 ring every 3 weeks then remove for 1 week 1 vag ring vaginal Q4W 3 weeks 1 ea 2RF To etonogestrel-ethinyl estradiol 0.12-0.015 mg/24 hr (NuvaRing) Insert 1 ring every 3 weeks then, insert a new ring- for continuous use. 1 vag ring vaginal Q4W 1 ea 9RF 3 weeks Coding Level of Care Code Est Pt Level 3 (98436) Diagnoses Encounter for surveillance of contraceptive device Z30.40
[2025-08-14 12:57] VITALS: BP 106/76; BMI 29.0
== END 2025-08-14 14:04 | disposition home or self-care (01) ==
LOC: HO.HWS 12:35
PROVIDERS: PCP Internal Medicine; Visit Provider Advanced Practice Midwife
DX: Z30.40 Encounter for surveillance of contraceptives, unspecified (principal)
CPT/HCPCS: 99213